=== PATIENT | female | born 1990 | race African-American/Black ===

== ENCOUNTER 2022-04-02 19:12 | Emergency (ER) | payer OTHER, SELFPAY ==
[2022-04-02] VITALS (9 sets, daily range): BP systolic 115–125; BP diastolic 65–84; PULSE 60–83; RESP 16–17; TEMP 36.4; O2SAT 98–100
--- NOTE | ~2022-04-02 | CT_ITS ---
EXAMINATION: CT brain wo con DATE: 04/02/2022 23:25 INDICATION: Frontal headache TECHNIQUE: Computed tomography (CT) of the head was performed without intravenous contrast. The mA wa s adjusted according to patient size. Iterative reconstruction technique was employed. Exam dose: 60 5.33 mGy-cm total exam DLP. COMPARISON: 04/02/2022 CT sinuses FINDINGS: No intracranial mass lesion or hemorrhage or cerebrovascular accident. Normal ventricular s ize. Normal damon-white matter differentiation. No midline shift or mass effect. No subdural or epidur al hematoma. No fracture or bone destruction of the cranial vault. The mastoid air cells are normally developed and aerated. There is prominent opacity in the included upper right maxillary sinus, soft tissue thickening of the ethmoid air cells and the left maxillary sinus. IMPRESSION: No intracranial abnormality Reviewed, dictated and finalized at [facility]. Reviewed, dictated and finalized at [facility]. IMPRESSION: No intracranial abnormality
--- NOTE | ~2022-04-02 | CT_ITS ---
EXAMINATION: CT sinus wo con DATE: 04/02/2022 22:46 INDICATION: Right facial pain TECHNIQUE: Computed tomography (CT) of the paranasal sinuses was performed without contrast. Iterativ e reconstruction technique was employed. Exam dose: 312.93 mGy-cm total exam DLP. COMPARISON: None FINDINGS: There is minimal medial bowing of the nasal septum. Interlamellar cell of left middle nasal turbinate. There is prominent soft tissue swelling of the moises al turbinates bilaterally. There is soft tissue thickening of the left infundibulum. The right maxillary sinus is nearly completely opacified, with medial bowing of the upper medial wall suggesting mucocele. The right infundibulum and maxillary ostium are opacified as is the right ethmo id bulla. There is soft tissue thickening in the ethmoid septae. There is mild mucoperiosteal thickening of the left maxillary and left sphenoid sinuses. The mastoid air cells are normally developed and aerated. IMPRESSION: Nearly complete opacification of the right maxillary sinus with medial bowing of the upp er medial wall of the right maxillary sinus, suggesting mucocele Opacification of the right ostiomeatal unit and soft tissue thickening of the left infundibulum Mild microvascular of left maxillary and sphenoid sinuses and soft tissue thickening of the ethmoid s eptae Reviewed, dictated and finalized at [facility]. Reviewed, dictated and finalized at [facility]. IMPRESSION: Nearly complete opacification of the right maxillary sinus with me dial bowing of the upper medial wall of the right maxillary sinus, suggesting m ucocele Opacification of the right ostiomeatal unit and soft tissue thickening of the l eft infundibulum Mild microvascular of left maxillary and sphenoid sinuses and soft tissue thick ening of the ethmoid septae
[2022-04-02] MEDS: SODIUM CHLORIDE 0.9% IV 1,000 ML 999 ML IV CONT (22:54)
[2022-04-02] MEDS: KETOROLAC 30 MG/ML VIAL (*BKC) IV PUSH (22:57)
[2022-04-02] MEDS: diphenhydrAMINE HCl INJ 50 MG/ML VIAL 25 MG IV PUSH (22:57)
[2022-04-02] MEDS: METOCLOPRAMIDE HCL INJ 10 MG/2 ML VIAL IV PUSH (22:57)
[2022-04-02 23:02] LABS: Basophils Absolute Auto 0.1 K/mm3 (0.0-0.1); Basophils Percent Auto 0.5 % (0.2-1.2); Eosinophils Absolute Auto 0.3 K/mm3 (0-0.3); Eosinophils Percent Auto 3.4 % (0-4.4); Hematocrit 35.8 % (37.0-47.0); Hemoglobin 11.1 g/dL (12.0-15.0); Immature Granulocyte Absolute 0.02 K/mm3 (0.00-0.031); Immature Granulocyte Percent A 0.2 % (0-0.5); Lymphocytes Absolute Auto 3.14 K/mm3 (0.9-3.2); Lymphocytes Percent Auto 31.1 % (18.3-44.2); Mean Corpuscular Hemoglobin 26.7 pg (26-34); Mean Corpuscular Volume 86.3 fl (80-100); Mean Platelet Volume 11.5 fl (7.4-10.4); Monocytes Absolute Auto 0.9 K/mm3 (0.1-0.6); Neutrophils Absolute Auto 5.7 K/mm3 (1.3-6.7); Neutrophils Percent Auto 55.8 % (45.5-73.1); Platelet Count Result 244 k/mm3 (150-375); Red Blood Count 4.15 M/mm3 (4.2-5.4); Red Cell Distribution Width 15.3 % (11.5-14.5); White Blood Count 10.1 K/mm3 (4.5-10.0)
[2022-04-02 23:15] LABS: Alanine Aminotransferase 17 U/L (6-35); Albumin Level 3.8 g/dL (3.5-5.1); Alkaline Phosphatase 68 U/L (38-126); Anion Gap 5 mmol/L (8-16); Aspartate Amino Transferase 21 U/L (14-36); Bilirubin,Total 0.2 mg/dL (0.2-1.3); Blood Urea Nitrogen 9 mg/dL (7-17); Calcium 8.5 mg/dL (8.4-10.2); Carbon Dioxide 28 mmol/L (22-30); Chloride 104 mmol/L (98-107); Estimated CRCL calculation 108 ml/min; Estimated Glomerular Filt Rate > 60; Glucose 90 mg/dL (65-110); Potassium 3.4 mmol/L (3.4-5.0); Sodium 137 mmol/L (137-145)
[2022-04-03] VITALS: O2SAT 99
[2022-04-03 00:15] VITALS: PULSE 87; RESP 18; O2SAT 98
[2022-04-03] MEDS: HYDROcodone/acetaminophen (*CRX) 5-325 MG TABLET 1 TAB PO (00:52)
[2022-04-03] MEDS: AMOXICILLIN/CLAVULANATE K 875-125 MG TAB 1 TABLET PO (00:53)
--- NOTE | 2022-04-03 02:08 | ED.GENADULT ---
HPI - General Adult General Chief complaint: Unspecified Stated complaint: right facial numbness Time Seen by Provider: 04/02/22 21:23 Source: patient Mode of arrival: ambulatory History of Present Illness HPI narrative: 31 year old female presents today with complaints of right sided facial pain that starts at her cheek and runs down her face. Patient states it started yesterday. She was able to take medication yesterday that made her pain free but she woke up this am and the pain was horrible. Patient has tried tylenol/ibuprofen without releif. Denies dental issues, unsure of sinus issues, but endorses a headache. Headache is the worse she has ever had. Related Data Allergies Allergy/AdvReac Type Severity Reaction Status Date / Time No Known Allergies Allergy Verified 04/02/22 19:25 Review of Systems Review of Systems: CONSTITUTIONAL: Denies fever, chills, or sweats. EYES: Denies visual changes, redness, or discharge. ENT: Denies rhinorrhea, congestion, sore throat, or otalgia. CARDIOVASCULAR: Denies chest pain, palpitations, or edema. RESPIRATORY: Denies cough or dyspnea. GASTROINTESTINAL: Denies abdominal pain, nausea, vomiting, or diarrhea. GENITOURINARY: Denies dysuria or hematuria. SKIN: Denies rash or itching. MUSCULOSKELETAL: Denies back pain, joint pain, or myalgia. NEUROLOGIC: Right cheek pain radiating down face. Headache. PSYCHIATRIC: Denies anxiety or depression. Exam Narrative: GENERAL: Well-appearing, well-nourished, and in no acute distress. HEAD: Normocephalic, atraumatic. EYES: PERRLA and EOMI. ENT: Nares clear, no rhinorrhea or epistaxis. Mucous membranes moist. Oropharynx without tonsillar hypertrophy exudate or other lesions. Bilateral TMs pearly damon nonbulging. Tenderness to right maxillary sinus. NECK: Supple. No adenopathy or masses. No carotid bruits or JVD CHEST: Clear to auscultation. No respiratory distress. No wheezes rales or rhonchi HEART: Regular rate and rhythm. No murmur heard. Normal peripheral pulses. ABDOMEN: Soft, nontender, nondistended, normal active bowel sounds. EXTREMITIES: Normal range of motion. No edema. SKIN: Warm, dry, no rash. NEURO: No focal deficits. Alert and oriented x3. PSYCH: Normal mood and affect. Course Course Emergency Course: Patient with some improvement after medications. Patient's headache is completely gone but still rating right cheek pain 8 out of 10. Labs and CT reviewed with patient. Patient given Augmentin here and also will be given a prescription. Patient discharged home with plan follow-up with primary care. Vital Signs Vital signs: Vital Signs Temperature 36.4 C L 04/02/22 19:26 Pulse Rate 83 04/02/22 19:26 Respiratory Rate 16 04/02/22 19:26 Blood Pressure 116/65 04/02/22 19:26 Pulse Oximetry 99 04/02/22 19:26 Temperature 36.4 C L 04/02/22 19:26 Pulse Rate 60 04/02/22 22:58 Respiratory Rate 17 04/02/22 22:58 Blood Pressure 115/77 04/02/22 22:58 Pulse Oximetry 100 04/02/22 22:58 Medical Decision Making MDM Narrative Medical decision making narrative: HPI as noted. WBC is 10.1 hemoglobin 11.11 BUN 9 creatinine with in normal limits. Electrolytes within normal limits. CT of the head shows no acute process. CT of the sinuses shows paranasal sinus disease. Considering patient was describing headache as the worst headache of her life and CT negative and comfortable discharging home. Patient with sinusitis. P.o. antibiotics given with plan follow-up with primary Differential Diagnosis Differential Diagnosis: Acute sinusitis, tooth infection, trigeminal neuralgia, right facial pain, Medical Records Medical records reviewed: Yes I reviewed the external patient's medical records. Vital Signs Vital Signs: Vital Signs Temperature 36.4 C L 04/02/22 19:26 Pulse Rate 83 04/02/22 19:26 Respiratory Rate 16 04/02/22 19:26 Blood Pressure 116/65 04/02/22 19:26 Pulse Oximetry 99 04/02/22 19:26
[2022-04-03 02:58] VITALS: PULSE 82; RESP 16; O2SAT 100
== END 2022-04-03 03:00 | disposition home or self-care (01) ==
PROVIDERS: Emergency Provider Nurse Practitioner Family; PCP Physician Assistant
DX: R51.9 Headache, unspecified (principal); J01.90 Acute sinusitis, unspecified
CPT/HCPCS: 36415; 70450; 70486; 80053; 81025; 85025; 96361; 96374; 96375; 99284; A9270; J1100; J1200; J1885; J2765; J7030

== ENCOUNTER 2022-04-14 11:15 | Outpatient (RCR) | payer OTHER, SELFPAY ==
--- NOTE | 2022-02-25 11:21 | PTOPEVAL ---
Thank you for referring Judi Ambrocio to [facility].? The patient is scheduled to be seen for therapy? 1-2 x/week for 6 weeks. Please review, sign, date and return this plan of care STANISLAV. I agree with and certify that the following plan of care is medically necessary. Referring Physician Date Attending Provider: Laura Parr, PA Diagnosis neck pain Onset chronic Subjective Information She reports the pain is not Query Text:As Reported By Patient/ isolated to her neck, but Family rather shoulders, back and neck region. She needs a breast reduction, but must have therapy first to meet insurance requirements. Reports N/t into marleny UE into hands for 1.6 yrs. She feels the symptoms are related to the pressure of her bra strap on her shoulder. She has increased pain with prolonged standing causing her to lean forward on objects. She performs slight cardio program of walking TM. She performs some stretches, but unable to verbalize any particular stretch. She is performing UE resistance training. Reports difficulty with sleeping. She also has sensitivity to touch and pressure. Indicates various clothing material irritate her skin as does light touch. Diagnostic Tests X-Rays For This Problem Yes: mild DDD C4-5 and C5-6 Previous Treatments Previous Treatments For This Problem no Pain Assessment Bilateral Arm(s) Reported Pain Level 8 Pain Description Numbness,Radiating,Tingling Pain Frequency Chronic Lowest Pain Intensity 0 Greatest Pain Intensity 8 Other Pain Aggravating Factors wearing a bra Neck Reported Pain Level 1 Pain Description Aching Pain Radiation Left Arm,Right Arm Pain Frequency Chronic Lowest Pain Intensity 1 Greatest Pain Intensity 7 Other Pain Aggravating Factors wearing a bra Pain Behaviors Irritable Cervical and Lumbar ROM Cervical ROM Cervical Flexion (0-60) 55:Active in Degrees Cervical Extension (0-70) 62
--- NOTE | 2022-03-07 17:19 | PTOPEVAL ---
Thank you for referring Judi Ambrocio to [facility].? The patient is scheduled to be seen for therapy?1-2 x/week for 4-6 weeks. Please review, sign, date and return this plan of care STANISLAV. I agree with and certify that the following plan of care is medically necessary. Referring Physician Date Attending Provider: Laura Parr, PA Diagnosis low back pain, shoulder pain Onset chronic Additional Evaluation Detail She reports the pain is not isolated to her neck, but rather shoulders, back and neck region. She needs a breast reduction, but must have therapy first to meet insurance requirements. Subjective Information A new order was received to Query Text:As Reported By Patient/ address chronic back and Family shoulder pain. She reports increased pain with prolonged standing task. She has had back pain for years. 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 Pain improves with seated rest. Denies any pain with sleeping or walking on TM. She does not perform isolated stretches for her back. Does feel her back pain increases when she is wearing her bra. Pain Assessment Lower Back Reported Pain Level 9 Pain Description Aching,Sharp Pain Frequency Chronic,Continuous Lowest Pain Intensity 5 Greatest Pain Intensity 10 Pain Aggravating Factors Exercise/Activity,Prolonged Position,Weight Bearing/ Standing Cervical and Lumbar ROM Lumbar ROM Lumbar Flexion Active AnkleHands to: Lateral Flexion lateral knee joint*Active Hands to: Lumbar Comments lumbar hyper ext during trunk ext, flex from hip hinge vs lumbar region trunk ext: motion for mid to upper back, lacks lumbar isolated movement Cervical and Lumbar Muscle Testing Lumbar Strength Upper Abdominal Strength 3+Fair+ Lower Abdominal Strength 3 Fair Upper Back Extension 3+Fair+ Lower Back Extension 3+Fair+ Lower Extremity Muscle Strength Testing General Lower Extremity Strength Gross
--- NOTE | 2022-03-21 15:23 | PTOPEVAL ---
Physical Therapy Progress Note Thank you for referring Judi Ambrocio to [facility].? She has been referred to therapy due to chronic back/neck and shoulder/UE pain. She has been seen for 5 therapy visits from 03/01/22 to 03/21/22. She is progressing slowly with her back/neck and UE symptoms. She remains limited with joint movement, muscle weakness, body awareness and proper movement patterns. She has been provided a home program to address her limitations. Modified oswestry: 22% impaired at eval and 20% impaired at update Neck Disability index: 16% impaired at eval and 14% impaired at update Assessment: Judi is progressing slowly towards her therapy goals. She requires additional skilled therapy services to address her soft tissue restrictions, improve proper joint movement, improve functional movement pattern and improve muscle strength. Without additional therapy services she will remain limited and restricted with her daily task. The patient is scheduled to be seen for therapy?1-2 x/week for 4 weeks. Please review, sign, date and return this plan of care STANISLAV. I agree with and certify that the following plan of care is medically necessary. Referring Physician Date Attending Provider: Laura Parr, PA Diagnosis low back pain, shoulder pain, neck pain Onset chronic Additional Evaluation Detail She reports the pain is not isolated to her neck, but rather shoulders, back and neck region. She needs a breast reduction, but must have therapy first to meet insurance requirements. Subjective Information She is going to the gym 5x/wk Query Text:As Reported By Patient/ for 30 min to 1 hr. She walks Family on the TM and performs her HEP. She does not feel therapy is helping her symptoms. She is wearing her bra more consistently since starting therapy. She cont to have increased pain with prolonged standing task. Reports the pain is mainly from midback to neck region. 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 She cont numbness and tingling into marleny UE to full hand region. Pain Assessment Lower Back Reported Pain Level 1 Pain Description Cramping,Sharp Pain Frequency Chronic Lowest Pain Intensity 1 Greatest Pain Intensity 7 Bilateral Arm(s) Reported Pain Level 7 Pain Description Numbness,Radiating,Tingling Pain Frequency Chronic Lowest Pain Intensity 7 Gre
--- NOTE | 2022-04-04 11:17 | PCPTNOTE ---
Patient called & cancelled scheduled appointment this date due to having another appointment.
--- NOTE | 2022-04-20 11:09 | PCPTNOTE ---
Patient called & cancelled scheduled appointment this date due to scheduling conflicts. She has been rescheduled.
--- NOTE | 2022-04-27 08:28 | PCPTNOTE ---
Patient called & cancelled scheduled appointment this date due to being called into work. She has been rescheduled.
--- NOTE | 2022-05-10 10:01 | PCPTNOTE ---
Attending Provider: Laura Parr, PA Patient:Judi Ambrocio Date of :1990 Patient no call no showed for her re-evaluation this date. She has cancelled the last 2 re-evaluations due to scheduling conflicts. Per our attendance policy, she will be discharged from skilled physical therapy services at this time. Patient has not returned for any further treatments since 04/14/2022. Patient?s initial visit was on 02/25/2022 and she had a total of 8 visits. Thank you for referring this patient to [facility]. Please review, sign, date and return this discharge summary STANISLAV. I have been updated about the patient's current status and I agree with discharge from the above service at this time. Referring Physician Date
== END 2022-05-10 14:37 | disposition home or self-care (01) ==
LOC: ANHPT 11:15
PROVIDERS: Visit Provider Physician Assistant
DX: M54.2 Cervicalgia (principal)
CPT/HCPCS: 97110; 97112; 97140; 97161; 97530

== ENCOUNTER 2022-06-29 08:58 | Outpatient (CLI) | payer OTHER, SELFPAY ==
--- NOTE | 2022-07-13 12:34 | WPDHOMESLEEP ---
Sleep Study - Home Unattended Date of Study: 06/29/22 Ordering Provider: Laura Parr, KEMAL Interpreting Provider: Milagro Solis, DO Home Sleep Study Type: Apnea Link Air Height: 1.65 m Weight: 131.542 kg Body Mass Index: 48.2 Neck Circumference (inches): 16 [place]: 5 Reason for Sleep Study Sleep-onset and sleep-maintenance insomnia Sleep History The patient is a 31-year-old female with seasonal allergies, pre-diabetes and obesity that had a sleep study ordered by her primary care for evaluation of sleep apnea. The patient denies awakening from sleep short of breath. She denies awakening at night with heartburn, belching or cough. He denies snoring loud enough others complain. She occasionally has trouble sleeping when she has a cold. She denies waking up gasping for air throughout the night. She denies having breathing problems at night observed by herself or others. She denies sweating excessively at night. She denies having heart palpitations or irregular heartbeats during the night. She denies falling asleep during the day and while driving. She denies sleep paralysis and cataplexy. She rarely has trouble at school or work due to sleepiness. She constantly experiences vivid dreamlike scenes upon awakening or falling asleep. She denies feeling afraid of point sleep. She denies having nightmares. She constantly remembers her dreams. She constantly has thoughts racing through her mind. She denies feeling sad or depressed. She frequently has anxiety. She denies having muscular tension she denies noticing parts of her body jerk. She denies kicking during night. He denies having crawling and aching feelings in her legs as well as leg pain during the night. She denies grinding her teeth during sleep awakening with morning jaw pain. She denies being bothered by pain during the day and denies being awakened by pain during the night. She constantly wakes up feeling stiff in the morning. She constantly wakes up with sore achy muscles. She occasionally wakes up with pain in the neck, spine or other joints. She goes to bed at 11:00 p.m. on weekdays and at midnight on the weekends. It takes her 30 minutes to an hour to fall asleep. She wakes up 2-3 times throughout the night for unknown reasons. When she awakens, she will lay in bed, get a drink or do something on her phone. He can take her a few minutes or several hours to fall back asleep. She does not have a set wake-up time on weekdays or weekends. She will stay in bed for a few minutes after waking up morning. She currently lives with her 3 children. She denies consuming any caffeinated beverages within 2 hours of bedtime. She occasionally engages in physical exercise before bedtime. She will watch television before falling asleep. She denies taking naps in the afternoon or the evening. She denies consuming caffeinated beverages throughout the day. She denies tobacco, alcohol and recreational drug use. [facility] Past Medical History Medical History (Updated 07/13/22 @ 12:47 by Milagro Solis DO) Morbid obesity with BMI of 45.0-49.9, adult Seasonal allergies Medications Home Medications Medication Instructions Recorded Confirmed Type amoxicillin 875 mg-potassium 1 tablet PO Q12H #14 tabs 04/03/22 Rx clavulanate 125 mg tablet Sleep Procedure This test was performed using 4 channel monitoring including respiratory effort channel, snoring channel, heart rate channel, and oxygen saturation channel. This study was scored using [facility] guidelines. Sleep Architecture The patient had a total recording time of 6 hours 41 minutes and total monitoring time of 6 hours 14 minutes. The patient spent 6 hours 8 minutes, 98.2% of total recording time in the supine position. Respiratory Analysis The patient had an overall AHI of 1.1 and the central apnea index of 0.2. The supine AHI was 1.1. The patient had 2 apneas and 5 hypopneas. No Surjit-Stok
[2022-07-13 12:43] VITALS: BMI 48.2
== END 2022-06-30 10:54 | disposition home or self-care (01) ==
LOC: ANHCSM 08:59
PROVIDERS: PCP Physician Assistant; Visit Provider Physician Assistant
DX: G47.9 Sleep disorder, unspecified (principal); G47.30 Sleep apnea, unspecified
CPT/HCPCS: 95806

== ENCOUNTER 2022-09-30 07:14 | Outpatient (CLI) | payer OTHER, SELFPAY ==
--- NOTE | 2022-10-29 17:23 | WPDSLEEPSTUD ---
Sleep Study Date of Study: 09/30/22 Ordering Provider: Laura Parr, KEMAL Interpreting Physician: Milagro Solis, DO Sleep Study Type: Polysomnogram Height: 1.63 m Weight: 127.006 kg Body Mass Index: 48.0 Neck Circumference (inches): 17 [place]: 5 Reason for Sleep Study The patient had a home sleep test on 06/29/2022 that showed an AHI of 1.1. Sleep History The patient is a 31-year-old female with seasonal allergies, pre-diabetes and obesity that had a sleep study ordered by her primary care for evaluation of sleep apnea.? The patient denies awakening from sleep short of breath.? She denies awakening at night with heartburn, belching or cough.? He denies snoring loud enough others complain.? She occasionally has trouble sleeping when she has a cold.? She denies waking up gasping for air throughout the night.? She denies having breathing problems at night observed by herself or others.? She denies sweating excessively at night.? She denies having heart palpitations or irregular heartbeats during the night.? She denies falling asleep during the day and while driving.? She denies sleep paralysis and cataplexy.? She rarely has trouble at school or work due to sleepiness.? She constantly experiences vivid dreamlike scenes upon awakening or falling asleep.? She denies feeling afraid of point sleep.? She denies having nightmares.? She constantly remembers her dreams.? She constantly has thoughts racing through her mind.? She denies feeling sad or depressed.? She frequently has anxiety.? She denies having muscular tension she denies noticing parts of her body jerk.? She denies kicking during night.? He denies having crawling and aching feelings in her legs as well as leg pain during the night.? She denies grinding her teeth during sleep awakening with morning jaw pain.? She denies being bothered by pain during the day and denies being awakened by pain during the night.? She constantly wakes up feeling stiff in the morning.? She constantly wakes up with sore achy muscles.? She occasionally wakes up with pain in the neck, spine or other joints.? She goes to bed at 11:00 p.m. on weekdays and at midnight on the weekends.? It takes her 30 minutes to an hour to fall asleep.? She wakes up 2-3 times throughout the night for unknown reasons.? When she awakens, she will lay in bed, get a drink or do something on her phone.? He can take her a few minutes or several hours to fall back asleep.? She does not have a set wake-up time on weekdays or weekends.? She will stay in bed for a few minutes after waking up morning.? She currently lives with her 3 children.? She denies consuming any caffeinated beverages within 2 hours of bedtime.? She occasionally engages in physical exercise before bedtime.? She will watch television before falling asleep.? She denies taking naps in the afternoon or the evening. She denies consuming caffeinated beverages throughout the day.? She denies tobacco, alcohol and recreational drug use. [facility] Past Medical History Medical History (Updated 07/13/22 @ 12:47 by Milagro Solis, ) Morbid obesity with BMI of 45.0-49.9, adult Seasonal allergies Medications Home Medications Medication Instructions Recorded Confirmed Type amoxicillin 875 mg-potassium 1 tablet PO Q12H #14 tabs 04/03/22 Rx clavulanate 125 mg tablet Sleep Procedure This test was performed using the [employer]Works multiple channel system including EOG, EEG, submental EMG, EKG, nasal and oral airflow using thermistors and nasal pressure sensors, chest and abdominal belts for body position data, and pulse oximetry. Video monitoring was also performed. The study was scored using CMS guidelines. Sleep Architecture The patient had a total recording time of 528.7 minutes and total sleep time of 359.5 minutes. The sleep efficiency was 68%. Sleep latency was 74.5 minutes and REM latency was 141.5 minutes. The patient had 20 awakenings. The patient spen
[2022-10-29 17:35] VITALS: BMI 48.0
== END 2022-10-01 07:17 | disposition home or self-care (01) ==
PROVIDERS: PCP Physician Assistant; Visit Provider Physician Assistant
DX: G47.9 Sleep disorder, unspecified (principal); G47.30 Sleep apnea, unspecified
CPT/HCPCS: 95810

== ENCOUNTER 2023-03-21 08:28 | Outpatient (CLI) | payer OTHER, SELFPAY ==
--- NOTE | ~2023-03-21 | CT_ITS ---
EXAMINATION: CT brain wo con DATE: 03/21/2023 08:59 INDICATION: Headache TECHNIQUE: Computed tomography (CT) of the head was performed without intravenous contrast. Sagittal and coronal reconstructions were performed. The mA was adjusted according to patient size. Iterative reconstruction technique was employed. The dose-length product was 605.33 mGy-cm. COMPARISON: head CT dated 04/02/2022 FINDINGS: No acute intracranial hemorrhage, acute infarction or abnormal extra axial fluid collection. Ventricl es are normal and symmetric. No mass/mass effect. Mild mucosal thickening the left maxillary sinus. T he orbits and mastoid air cells are normal. IMPRESSION: 1. Normal brain. Reviewed, dictated and finalized at [facility]. IMPRESSION: 1. Normal brain.
== END 2023-03-21 08:29 | disposition home or self-care (01) ==
PROVIDERS: PCP Physician Assistant; Visit Provider Physician Assistant
DX: R51.9 Headache, unspecified (principal)
CPT/HCPCS: 70450

== ENCOUNTER 2024-03-19 10:02 | Emergency (ER) | payer OTHER, SELFPAY ==
--- NOTE | ~2024-03-19 | XR_ITS ---
EXAMINATION: XR chest 2V 03/19/2024 10:51 INDICATION: Midsternal chest pain for 2 weeks PROCEDURE: 2 view chest COMPARISON: 07/19/2006 FINDINGS: The lungs are clear. The cardiomediastinal silhouette is within normal limits. There are no pleural effusions. There is no pneumothorax suspected. IMPRESSION: 1: NO ACUTE CARDIOPULMONARY DISEASE. Reviewed, dictated and finalized at [facility].
--- NOTE | 2024-03-19 10:02 | ECG_ITS ---
SEE SCANNED COPY FOR CONFIRMED REPORT. MTDD
[2024-03-19 10:05] VITALS: BP 135/66; PULSE 65; RESP 16; TEMP 36.4; O2SAT 99
[2024-03-19 10:30] LABS: Basophils Percent Auto 0.4 % (0.2-1.2); Eosinophils Absolute Auto 0.3 K/mm3 (0-0.3); Eosinophils Percent Auto 3.5 % (0-4.4); Hematocrit 36.7 % (37.0-47.0); Hemoglobin 11.5 g/dL (12.0-15.0); Immature Granulocyte Absolute 0.01 K/mm3 (0.00-0.031); Immature Granulocyte Percent A 0.1 % (0-0.5); Lymphocytes Absolute Auto 2.05 K/mm3 (0.9-3.2); Lymphocytes Percent Auto 28.8 % (18.3-44.2); Mean Corpuscular HGB Conc 31.3 g/dl (32-36); Mean Corpuscular Volume 86.2 fl (80-100); Mean Platelet Volume 11.6 fl (7.4-10.4); Monocytes Absolute Auto 0.6 K/mm3 (0.1-0.6); Monocytes Percent Auto 8.3 % (2.6-8.5); Neutrophils Absolute Auto 4.2 K/mm3 (1.3-6.7); Neutrophils Percent Auto 58.9 % (45.5-73.1); Platelet Count Result 267 k/mm3 (150-375); Red Blood Count 4.26 M/mm3 (4.2-5.4); Red Cell Distribution Width 15.6 % (11.5-14.5); White Blood Count 7.1 K/mm3 (4.5-10.0)
[2024-03-19 10:41] LABS: INR 0.9
[2024-03-19 10:42] LABS: Partial Thromboplastin Time 26.1 Seconds (22.3-36.8)
[2024-03-19 10:45] LABS: Alanine Aminotransferase 22 U/L (6-35); Alkaline Phosphatase 72 U/L (38-126); Anion Gap 8 mmol/L (4-12); Aspartate Amino Transferase 20 U/L (14-36); Bilirubin,Total 0.4 mg/dL (0.2-1.3); Blood Urea Nitrogen 9 mg/dL (7-17); Calcium 8.7 mg/dL (8.4-10.2); Carbon Dioxide 23 mmol/L (22-30); Chloride 109 mmol/L (98-107); Estimated CRCL calculation 103 ml/min; Estimated Glomerular Filt Rate > 60; Glucose 97 mg/dL (65-110); Lipase 80 U/L (23-300); Potassium 4.1 mmol/L (3.4-5.0); Sodium 140 mmol/L (137-145)
[2024-03-19 10:57] LABS: Troponin I < 0.012 ng/mL (0.000-0.034)
[2024-03-19 11:07] VITALS: BP 133/52; PULSE 67; PULSE 70; RESP 23; O2SAT 100
[2024-03-19 12:02] VITALS: BP 132/72; PULSE 68; RESP 18; TEMP 36.7; O2SAT 100
--- NOTE | 2024-03-19 12:12 | ED.CHESTPAIN ---
HPI - Chest Pain General Chief Complaint: Chest Pain Stated Complaint: chest pain Time Seen by Provider: 03/19/24 11:41 Source: patient Mode of arrival: ambulatory Limitations: no limitations History of Present Illness HPI narrative: Patient presents with chest pain and shortness of breath of several weeks duration though she states increasing in frequency with episodes lasting longer. She has a history of palpitations years ago for which she saw a health promotion specialist and previously wore an event monitor (possibly multiple times). She has an upcoming appointment with her health promotion specialist Dr [facility] on 04/03/24. She has not taken anything for pain yet. No cough or fever. She states it feels different than her palpitations. Episodes had lasted minutes but now last hours to days, occurring intermittently. She will often experience intermittent numbness in her bilateral lower extremities, not occurring in both legs at the same time but rather occasionally on the left and occasionally on the right. Does not wear tight clothes/belts around waist/hips. No nausea/vomiting/diarphoresis. No hemoptysis, recent surgery/trauma. No Hx DVT/PE. Not on hormones. Patient denies any matthew lower extremity edema though does state occasionally she will notice that when she takes her socks off it leaves a ridge/shady. Related Data Allergies Allergy/AdvReac Type Severity Reaction Status Date / Time ibuprofen Allergy Swelling Verified 03/19/24 11:09 of Lip/Tongue/Throat PMFSH Past Medical History Medical History (Updated 03/20/24 @ 00:01 by Background Daemon) Morbid obesity with BMI of 45.0-49.9, adult Seasonal allergies Exam Narrative: GENERAL: Well-appearing, well-nourished, and in no acute distress. HEAD: Normocephalic, atraumatic. EYES: Non injected, non icteric ENT: Nares clear, no rhinorrhea or epistaxis. NECK: Supple. CHEST: Speaking in full sentences. No respiratory distress. Lungs clear. HEART: Regular rate and rhythm. . ABDOMEN: Soft, nondistended. EXTREMITIES: Normal range of motion. No edema. SKIN: Warm, dry, no rash. NEURO: No focal deficits. Alert and oriented x3. PSYCH: Normal mood and affect. Course Vital Signs Vital signs: Vital Signs Temperature 97.5 F L 03/19/24 10:05 Pulse Rate 65 03/19/24 10:05 Respiratory Rate 16 03/19/24 10:05 Blood Pressure 135/66 03/19/24 10:05 Pulse Oximetry 99 03/19/24 10:05 Oxygen Delivery Room Air 03/19/24 10:05 Temperature 98.0 F 03/19/24 12:58 Pulse Rate 66 03/19/24 14:31 Respiratory Rate 20 03/19/24 14:31 Blood Pressure 129/85 03/19/24 14:31 Pulse Oximetry 99 03/19/24 14:31 Oxygen Delivery Room Air 03/19/24 11:07 MDM - Chest Pain MDM Narrative Medical decision making narrative: Patient present with chest pain and shortness of breath of several weeks duration but increasing episodes in terms of frequency. In the ED she is afebrile with VS within normal limits. Has a history of palpitations without clear diagnosis. Has previously seen health promotion specialist Dr Rodríguez and has an upcoming appointment with them 04/03. History and physical exam reassuring. PERC score negative so will not pursue further work up for PE. Work up unremarkable, with negative troponin x2. Low HEART score. Patient to be discharged with outpatient follow up and strict ED return precautions. Differential Diagnosis Differential diagnosis: Likely fracture of rib, pneumothorax, stable angina, unstable angina pectoris, atypical chest pain, st elevation myocardial infarction, costochondritis, chest pain, biliary colic and other (acute viral syndrome, rhabdo, electrolyte abnormality. Considered PE. Meralgia paresthestica) Lab Data Attestation: I reviewed the patient's lab results. Lab results narrative: Normocytic anemia, stable from previous 03/19/24 10:22 03/19/24 10:22 Labs: Lab Results 03/19/24 03/19/24 03/19/24
[2024-03-19 12:39] LABS: Creatine Kinase 228 U/L (30-135); Magnesium 1.9 mg/dL (1.6-2.3)
[2024-03-19 12:58] VITALS: BP 133/52; PULSE 64; RESP 18; TEMP 36.7; O2SAT 100
--- NOTE | 2024-03-19 13:00 | ECG_ITS ---
SEE SCANNED COPY FOR CONFIRMED REPORT. MTDD
[2024-03-19 13:09] LABS: Influenza A QL RT-PCR Negative (Negative); Influenza B QL RT-PCR Negative (Negative); RSV RNA, RT-PCR Negative (Negative); SARS-CoV-2 RNA PCR Negative (Negative)
--- NOTE | 2024-03-19 13:23 | PC.NURSE ---
Pt denies chest pain at this time. No ectopy noted on cardiac cath lab radiology technologist.
[2024-03-19 14:02] LABS: Troponin I < 0.012 ng/mL (0.000-0.034)
[2024-03-19] MEDS: ACETAMINOPHEN 500 MG TABLET 1000 MG PO (14:28)
[2024-03-19 14:31] VITALS: BP 129/85; PULSE 66; RESP 20; O2SAT 99
== END 2024-03-19 14:32 | disposition home or self-care (01) ==
PROVIDERS: Emergency Provider Student in an Organized Health Care Education/Training Program; Referring Provider Family Medicine
DX: R07.9 Chest pain, unspecified (principal); D64.9 Anemia, unspecified; Z20.822 Contact with and (suspected) exposure to COVID-19; E66.01 Morbid (severe) obesity due to excess calories; Z68.42 Body mass index [BMI] 45.0-49.9, adult; R94.31 Abnormal electrocardiogram [ECG] [EKG]
CPT/HCPCS: 36415; 71046; 80053; 82550; 83690; 83735; 84484; 85025; 85610; 85730; 87637; 93005; 99284; A9270

== ENCOUNTER 2024-07-23 18:07 | Emergency (ER) | payer OTHER, SELFPAY ==
[2024-07-23 18:17] VITALS: BP 128/84; PULSE 84; RESP 16; TEMP 36.5; O2SAT 100
[2024-07-23 18:45] VITALS: BP 130/82; PULSE 92; RESP 20; TEMP 36.7; O2SAT 100
--- NOTE | 2024-07-23 19:07 | ED.GENADULT ---
HPI - General Adult General Chief complaint: Back Pain/Injury Stated complaint: lower back pain Time Seen by Provider: 07/23/24 18:48 History of Present Illness HPI narrative: This is a 33-year-old female presenting ED with 2 months of back pain. Pain is located in her left lower back and radiates to the right side. It is an achy pain that is positional. Worse with movement. It improves when she holds pressure on it. It is not associated with fevers IV drug abuse trauma or neurologic deficits. She has been taking Tylenol with minimal relief. She tried cyclobenzaprine at a urgent care and said she fell asleep for 3 days. patient said that the pain started 2 months ago when she had a menstrual cycle but has not let up. Patient is requesting a work note. Related Data Allergies Allergy/AdvReac Type Severity Reaction Status Date / Time ibuprofen Allergy Swelling Verified 07/23/24 18:07 of Lip/Tongue/Throat PMFSH Past Medical History Medical History Morbid obesity with BMI of 45.0-49.9, adult Seasonal allergies Exam Narrative: APPEARANCE: No apparent distress. Head: atraumatic. EYES: EOMI, NOSE: Atraumatic NECK/Back: Trachea midline, no midline spinal tenderness, no tenderness over the left lower quadrant. Straight leg negative bilaterally. RESPIRATORY: No increased rate of breathing CARDIOVASCULAR: RRR, ABDOMINAL: Non-distended MUSCULOSKELETAl: No obvious deformities NEURO: Alert. Cranial nerves 2-12 grossly intact. Sensation light touch, motor function cerebellar function intact for 4 extremities. Gait exam was normal. SKIN:: Warm, dry. Normal color PSYCHIATRIC: Normal affect Course Vital Signs Vital signs: Vital Signs Temperature 97.7 F 07/23/24 18:17 Pulse Rate 84 07/23/24 18:17 Respiratory Rate 16 07/23/24 18:17 Blood Pressure 128/84 07/23/24 18:17 Pulse Oximetry 100 07/23/24 18:17 Temperature 98.1 F 07/23/24 18:45 Pulse Rate 92 07/23/24 18:45 Respiratory Rate 20 07/23/24 18:45 Blood Pressure 130/82 07/23/24 18:45 Pulse Oximetry 100 07/23/24 18:45 Medical Decision Making [facility] Narrative Medical decision making narrative: -Course: 33-year-old female presenting with 2 months of positional back pain. no red flags on history or physical. Discussed CT imaging and intramuscular injections for pain in the patient declined. She would like to try pills. She would like a work note. 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 No trauma. -Interventions: Tylenol Robaxin lidocaine patch -Shared decision making / Disposition: discharged -RX Tylenol Robaxin lidocaine patch Vital Signs Vital Signs: Vital Signs Temperature 97.7 F 07/23/24 18:17 Pulse Rate 84 07/23/24 18:17 Respiratory Rate 16 07/23/24 18:17 Blood Pressure 128/84 07/23/24 18:17 Pulse Oximetry 100 07/23/24 18:17 Temperature 98.1 F 07/23/24 18:45 Pulse Rate 92 07/23/24 18:45 Respiratory Rate 20 07/23/24 18:45 Blood Pressure 130/82 07/23/24 18:45 Pulse Oximetry 100 07/23/24 18:45 Discharge Plan Discharge Clinical Impression: Strain of lumbar region Patient Disposition: Home, Self-Care Condition: Stable Instructions: Antibiotic Form, Back Pain (ED) Additional Instructions: please take prescribed medications as directed for back pain. Please follow-up with your primary care physician for further management. Return if you develop severe back pain, inability to urinate, lower extremity weakness or bowel incontinence. Prescriptions: New acetaminophen 500 mg tabl
[2024-07-23] MEDS: LIDOCAINE 5% PATCH 1 PATCH TRANSDERM (19:33)
[2024-07-23] MEDS: ACETAMINOPHEN 500 MG TABLET 1000 MG PO (19:33)
[2024-07-23] MEDS: methocarbamoL 750 MG TABLET PO (19:34)
[2024-07-23 19:36] VITALS: BP 125/84; PULSE 78; RESP 16; TEMP 36.6; O2SAT 100
== END 2024-07-23 19:37 | disposition home or self-care (01) ==
LOC: ANHED 19:25
PROVIDERS: Emergency Provider Emergency Medicine
DX: S39.012A Strain of muscle, fascia and tendon of lower back, initial encounter (principal); E66.01 Morbid (severe) obesity due to excess calories; Z68.43 Body mass index [BMI] 50.0-59.9, adult; X58.XXXA Exposure to other specified factors, initial encounter
CPT/HCPCS: 99283; A9270

== ENCOUNTER 2024-09-14 14:38 | Emergency (ER) | payer OTHER, SELFPAY ==
--- NOTE | ~2024-09-14 | US_ITS ---
US pelvic complete DATE: 09/14/2024 17:09 INDICATION: Ovarian mass. Evaluate for torsion. TECHNIQUE: COMPARISON: None FINDINGS: There is measures 14.6 cm sagittal, 6.5 cm AP and 6.7 cm transverse dimension. The central endometrial echo complex measures 3.5 mm AP dimension. The right ovary measures 3.4 x 3.0 x 3.5 cm. There is vascular flow to the right ovary. The left ovary measures 10 x 9.3 x 8.9 cm. There is a large cystic lesion of the left ovary. There is arterial flow to the left ovary. Images, IMPRESSION: Large left ovarian cyst; there is vascular flow to the ovaries. Uterine enlargement Reviewed, dictated and finalized at [facility]. Reviewed, dictated and finalized at [facility].
--- NOTE | ~2024-09-14 | CT_ITS ---
EXAMINATION: CT abdomen pelvis w con DATE: 09/14/2024 15:59 INDICATION: Abdominal pain TECHNIQUE: Computed tomography (CT) of the abdomen and pelvis was performed with 100 CC Omnipaque 350 intravenous contrast. Automated exposure control and iterative reconstruction technique were employe d. Exam dose: 1438.76 mGy-cm total exam DLP. COMPARISON: None. FINDINGS: The lung bases are clear. Normal heart size. Trace pericardial fluid. The liver, gallbladder, bile ducts, spleen, pancreas, pancreatic duct, and adrenal glands and kidneys are unremarkable. Normal caliber of the abdominal aorta. There is a large septated cystic lesion of the left pelvic area, measuring up to 10.4 cm AP, 7.6 cm t ransverse and 8.8 cm vertical dimension. This displaces the uterus to the right. The uterus is enlarged, measuring up to 14 cm vertical and 6.2 cm AP dimension. The urinary bladder is unremarkable. Otherwise no intraperitoneal or retroperitoneal or pelvic mass lesion or adenopathy or ascites is not ed. Normal appendix. No bowel obstruction or intraperitoneal free air. Small fat-containing umbilical hernia. Included skeletal structures are unremarkable. IMPRESSION: 10.4 x 7.6 x 8.8 cm septated left adnexal cystic mass, likely of ovarian origin; conside r benign or malignant ovarian lesion, including cystadenoma or cystadenocarcinoma Reviewed, dictated and finalized at [facility]. Reviewed, dictated and finalized at [facility]. IMPRESSION: 10.4 x 7.6 x 8.8 cm septated left adnexal cystic mass, likely of o varian origin; consider benign or malignant ovarian lesion, including cystadeno ma or cystadenocarcinoma
[2024-09-14 14:43] VITALS: BP 112/69; PULSE 74; RESP 18; TEMP 37.1; O2SAT 100
[2024-09-14] MEDS: SODIUM CHLORIDE 0.9% IV 1,000 ML 999 ML IV CONT (15:04)
[2024-09-14] MEDS: ONDANSETRON INJ 4 MG/2 ML VIAL IV PUSH (15:04)
[2024-09-14 15:06] LABS: BEDSIDEPREGUCG Negative (Negative)
[2024-09-14 15:12] LABS: Basophils Percent Auto 0.5 % (0.2-1.2); Eosinophils Absolute Auto 0.2 K/mm3 (0-0.3); Eosinophils Percent Auto 1.9 % (0-4.4); Hematocrit 36.6 % (37.0-47.0); Hemoglobin 11.7 g/dL (12.0-15.0); Immature Granulocyte Absolute 0.02 K/mm3 (0.00-0.031); Immature Granulocyte Percent A 0.2 % (0-0.5); Lymphocytes Absolute Auto 2.23 K/mm3 (0.9-3.2); Lymphocytes Percent Auto 26.9 % (18.3-44.2); Mean Corpuscular Hemoglobin 27.5 pg (26-34); Mean Corpuscular Volume 86.1 fl (80-100); Monocytes Absolute Auto 0.9 K/mm3 (0.1-0.6); Monocytes Percent Auto 10.6 % (2.6-8.5); Neutrophils Percent Auto 59.9 % (45.5-73.1); Platelet Count Result 324 k/mm3 (150-375); Red Blood Count 4.25 M/mm3 (4.2-5.4); Red Cell Distribution Width 14.9 % (11.5-14.5); White Blood Count 8.3 K/mm3 (4.5-10.0)
[2024-09-14 15:21] LABS: Lipase 51 U/L (23-300)
[2024-09-14 15:22] LABS: Alanine Aminotransferase 20 U/L (6-35); Albumin Level 4.3 g/dL (3.5-5.1); Alkaline Phosphatase 56 U/L (38-126); Anion Gap 7 mmol/L (4-12); Aspartate Amino Transferase 19 U/L (14-36); Bilirubin,Total 0.6 mg/dL (0.2-1.3); Blood Urea Nitrogen 11 mg/dL (7-17); Calcium 8.9 mg/dL (8.4-10.2); Carbon Dioxide 29 mmol/L (22-30); Chloride 102 mmol/L (98-107); Estimated CRCL calculation 105 ml/min; Estimated Glomerular Filt Rate > 60; Glucose 88 mg/dL (65-110); Potassium 3.8 mmol/L (3.4-5.0); Sodium 138 mmol/L (137-145)
[2024-09-14 15:27] LABS: Add Urine Microscopic? YES; Appearance Urine Turbid (Clear); Bacteria Urine 4+ /hpf; Bilirubin Urine Negative (Negative); Blood Urine Trace (Negative); Color Urine Dark Yellow (Yellow); Glucose Urine UA Negative (Negative); Ketones Urine Trace mg/dL (Negative); Leukocyte Esterase Ur Trace LEU/UL (Negative); Need Manual Microscopic Reviewed; Nitrate Urine Negative (Negative); Non Pathogenic Casts 0-2; Protein Urine 1+ mg/dL (Negative); Specific Grav Ur 1.034 (1.001-1.035); Squamous Epithelial Cell Urine Few /hpf (Few); pH Urine 5.5 (5.0-9.0)
--- NOTE | 2024-09-14 15:37 | ED_ITS ---
HPI - General Adult General Chief complaint: Abdominal Pain Stated complaint: left flank pain Time Seen by Provider: 09/14/24 14:40 History of Present Illness HPI narrative: The patient is a 34-year-old female who presents emergency department with chief complaint of left flank pain and left lower quadrant pain. The patient reports that pain has been getting worse reports that she has been having intermittent discomfort since May the patient denies fever denies vomiting denies diarrhea reports that she has had no bowel or bladder disturbances Related Data Allergies Allergy/AdvReac Type Severity Reaction Status Date / Time ibuprofen Allergy Swelling Verified 09/14/24 16:05 of Lip/Tongue/Throat Review of Systems Review of Systems: A 10 system review of systems was completed on the patient and is negative except for what is stated in the HPI. Nursing and ancillary documentation was reviewed. [facility] Past Medical History Medical History Morbid obesity with BMI of 45.0-49.9, adult Seasonal allergies Exam Narrative: GENERAL: Well-appearing, well-nourished, and in no acute distress. HEAD: Normocephalic, atraumatic. EYES: PERRLA and EOMI. ENT: Nares clear, no rhinorrhea or epistaxis. Mucous membranes moist. NECK: Supple. CHEST: Clear to auscultation. No respiratory distress. HEART: Regular rate and rhythm. No murmur heard. Normal peripheral pulses. ABDOMEN: Soft, tenderness to palpation of the right lower quadrant left lower quadrant, nondistended, normal active bowel sounds. No CVA tenderness EXTREMITIES: Normal range of motion. No edema. SKIN: Warm, dry, no rash. NEURO: No focal deficits. Alert and oriented x3. PSYCH: Normal mood and affect. Course Vital Signs Vital signs: Vital Signs Temperature 37.1 C 09/14/24 14:43 Pulse Rate 74 09/14/24 14:43 Respiratory Rate 18 09/14/24 14:43 Blood Pressure 112/69 09/14/24 14:43 Pulse Oximetry 100 09/14/24 14:43 Oxygen Delivery Room Air 09/14/24 14:43 Temperature 37.1 C 09/14/24 14:43 Pulse Rate 73 09/14/24 18:03 Respiratory Rate 18 09/14/24 18:03 Blood Pressure 108/74 09/14/24 18:03 Pulse Oximetry 100 09/14/24 18:03 Oxygen Delivery Room Air 09/14/24 14:43 Medical Decision Making [facility] Narrative Medical decision making narrative: Differential diagnosis includes intra-abdominal infection, UTI, ovarian cyst, ovarian torsion Laboratory studies were obtained on the patient showed normal CBC CMP was within normal limits lipase was normal urinalysis showed evidence of UTI test was negative CT scan of the abdomen pelvis showed 10.4 x 7.6 x 8.8 cm septated left adnexal cystic mass, likely of ovarian origin; consider benign or malignant ovarian lesion, including cystadenoma or cystadenocarcinoma A pelvic ultrasound was obtained Vital Signs Vital Signs: Vital Signs Temperature 37.1 C 09/14/24 14:43 Pulse Rate 74 09/14/24 14:43 Respiratory Rate 18 09/14/24 14:43 Blood Pressure 112/69 09/14/24 14:43 Pulse Oximetry 100 09/14/24 14:43 Oxygen Delivery Room Air 09/14/24 14:43 Temperature 37.1 C 09/14/24 14:43 Pulse Rate 73 09/14/24 18:03 Respiratory Rate 18 09/14/24 18:03 Blood Pressure 108/74 09/14/24 18:03 Pulse Oximetry 100 09/14/24 18:03 Oxygen Delivery Room Air 09/14/24 14:43 Lab Data 09/14/24 15:04 09/14/24 15:04 Labs: Lab Results 09/14/24 09/14/24 Range/Units 15:04 15:05 WBC 8.3 (4.5-10.0) K/mm3 RBC 4.25 (4.2-5.4) M/mm3 Hgb 11.7 L (12.0-15.0) g/dL Hct 36.6 L (37.0-47.0) % MCV 86.1 (80-100) fl MCH 27.5 (26-34) pg MCHC 32.0 (32-36) g/dl RDW 14.9 H (11.5-14.5) % Plt Count 324 (150-375) k/mm3 MPV 11.0 H (7.4-10.4) fl Immature Gran % (Auto) 0.2 (0-0.5) % Neut % (Auto) 59.9 (45.5-73.1) % Lymph % (Auto) 26.9 (18.3-44.2) % Patrick % (Auto) 10.6 H (2.6-8.5) % Eos % (Auto) 1.9 (0-4.4) % Baso % (Auto) 0.5 (0.2-1.2) % Lymph # (Auto) 2.23 (0.9-3.2) K/mm3 Patrick # (Auto) 0.9 H (0.1-0.6) K/mm3 Eos # (Auto) 0.2 (0-0.3) K/mm3 Baso # (Auto) 0.0 (0.0-0.1) K/mm3 Abs Immat Gran (auto) 0.02 (0.00-0.031) K/mm3 Absolute Neuts (auto) 5.0 (1.3-6.7) K/mm3 Absolute Nucleated RBC 0.000 (0.0-0.012) K/mm3 Nucleated RBC % 0.0 (0.0-0.2) % Sodium 138 (137-145) mmol/L Potassium 3.8 (3.4-5.0) mmol/L Chloride 102 (98-107) mmol/L Carbon Dioxide 29 (22-30) mmol/L Anion Gap 7 (4-12) mmol/L BUN 11 (7-17) mg/dL Creatinine 0.90 (0.7-1.0) mg/dL Estim Creat Clear Calc 105 ml/min Estimated GFR > 60 (59 - ) Glucose 88 (65-110) mg/dL Calcium 8.9 (8.4-10.2) mg/dL Total Bilirubin 0.6 (0.2-1.3) mg/dL AST 19 (14-36) U/L ALT 20 (6-35) U/L Alkaline Phosphatase 56 (38-126) U/L Total Protein 9.0 H (6.3-8.2) g/dL Albumin 4.3 (3.5-5.1) g/dL Lipase 51 (23-300) U/L Urine Color Dark yellow (Yellow) Urine Appearance Turbid H (Clear) Urine pH 5.5 (5.0-9.0) Ur Specific [place] 1.034 (1.001-1.035) Urine Protein 1+ H (Negative) mg/dL Urine Glucose (UA) Negative (Negative) mg/dL Urine Ketones Trace H (Negative) mg/dL Ur Blood (Man) Trace (Negative) Urine Nitrate Negative (Negative) Urine Bilirubin Negative (Negative) Urine Urobilinogen 1.0 (<2.0) mg/dL Add Ur Microanalysis Reviewed Leukocyte Esterase Rfl Trace H (Negative) CELESTE/UL Urine RBC 6-10 H (0-2) /hpf Urine WBC 11-20 H (0-3) /hpf Ur Squamous Epith Cells Few (Few) /hpf Urine Bacteria 4+ H /hpf Urine Casts 0-2 POC Urine HCG, Qual Negative (Negative) Discharge Plan Discharge Clinical Impression: Cyst of left ovary, UTI (urinary tract infection) Patient Disposition: Home, Self-Care Condition: Stable Instructions: Antibiotic Form, Ovarian Cyst (ED), Abdominal Pain (ED) Prescriptions: New cephalexin 500 mg capsule 500 mg PO Q12H 7 Days Qty: 14 0RF hydrocodone-acetaminophen 5-325 mg tablet 1 tablet PO Q6H PRN (Reason: pain) 3 Days Qty: 12 0RF No Action acetaminophen 500 mg capsule 1,000 mg PO Q6H PRN (Reason: pain) Qty: 20 0RF acetaminophen 500 mg tablet 1,000 mg PO TID PRN (Reason: paresh) 7 Days Qty: 42 0RF methocarbamol 750 mg tablet 1,500 mg PO TID Qty: 35 0RF lidocaine 5 % adhesive patch,medicated 1 patch topical DAILY Qty: 15 0RF Rx Instructions: leave on most painful area for up to 12 hrs Follow-up/Referrals: Modesto Chambers MD [Physician] - Malcolm Reyes MD [Physician] - PHYSICIAN,ASSISTANT PRODUCT MANAGER [Primary Care Provider] - Time of Disposition: 19:17
[2024-09-14 18:03] VITALS: BP 108/74; PULSE 73; RESP 18; O2SAT 100
[2024-09-14 19:27] VITALS: BP 96/67; PULSE 64; RESP 18; TEMP 36.8; O2SAT 99
--- NOTE | 2024-09-14 19:32 | PC.NURSE ---
patient is ready or discharge. alert and oriented x's 4. ambulatory before discharge.
== END 2024-09-14 19:34 | disposition home or self-care (01) ==
PROVIDERS: Emergency Provider Emergency Medicine
DX: N39.0 Urinary tract infection, site not specified (principal); N83.202 Unspecified ovarian cyst, left side; E66.01 Morbid (severe) obesity due to excess calories; Z68.42 Body mass index [BMI] 45.0-49.9, adult
CPT/HCPCS: 36415; 74177; 76856; 80053; 81001; 81025; 83690; 85025; 87086; 96361; 96374; 99284; J2405; J7030; Q9967

== ENCOUNTER 2024-09-18 08:14 | Emergency (ER) | payer OTHER, SELFPAY ==
[2024-09-18] VITALS (16 sets, daily range): BP systolic 114–132; BP diastolic 77–88; PULSE 65–84; RESP 13–18; TEMP 36.8; O2SAT 90–98
--- NOTE | ~2024-09-18 | US_ITS ---
EXAMINATION: US pelvic complete w TV DATE: 09/18/2024 10:17 INDICATION: Ovarian cyst. TECHNIQUE: Multiple transabdominal and transvaginal sonographic images of the pelvis were obtained. COMPARISON: Ultrasound 09/14/2024, CT abdomen and pelvis 09/14/2024 FINDINGS: TRANSABDOMINAL ULTRASOUND: The uterus measures 11.9 x 6.5 cm. There is no free fluid in the pelvis. TRANSVAGINAL ULTRASOUND: The endometrial complex measures 12 mm in thickness. There is a 2.6 cm subserosal fibroid. The right ovary measures 3.2 x 2.6 x 2.7 cm. The left ovary measures 9.5 x 10.3 x 9.2 cm. There is a 9.9 x 7.8 x 7.6 cm cyst in left ovary. There is normal vascular flow in the ovaries. IMPRESSION: 1. Stable 9.9 cm cyst in left ovary, probably benign. Consider pelvis MRI without and with contrast o r 6-12 month follow-up ultrasound. 2. Uterine fibroid. Reviewed, dictated and finalized at location B. IMPRESSION: 1. Stable 9.9 cm cyst in left ovary, probably benign. Consider pelvis MRI witho ut and with contrast or 6-12 month follow-up ultrasound. 2. Uterine fibroid.
[2024-09-18 08:49] LABS: BEDSIDEPREGUCG Negative (Negative)
--- NOTE | 2024-09-18 09:16 | ED_ITS ---
HPI - Abdominal Pain General Chief Complaint: Abdominal Pain Stated Complaint: abdominal pain w/ n/v Time Seen by Provider: 09/18/24 09:04 History of Present Illness HPI narrative: Patient is a 34 year old female presents to ER with left lower abdominal pain. She reports the pain started approximately 5 months, found out Monday it was an ovarian cyst after she came here for evaluation. Patient reports she has an appointment with Dr. Santiago today, but her pain was so bad she had to come back in to the ER. She reports she has a history of 3 vaginal deliveries and her last was approximately 9 years ago. Patient denies any other pertinent medical history. She denies chest pain, shortness of breath, back pain, but does endorse abdominal pain with urination and left-sided upper and lower abdominal pain with palpation. Related Data Allergies Allergy/AdvReac Type Severity Reaction Status Date / Time ibuprofen Allergy Swelling Verified 09/14/24 16:05 of Lip/Tongue/Throat Review of Systems Review of Systems: All systems reviewed & are unremarkable except as noted in HPI and below PMFSH Past Medical History Medical History Morbid obesity with BMI of 45.0-49.9, adult Seasonal allergies Exam Narrative: GENERAL: Well appearing, well-nourished, non-toxic, in mild distress as shown by tearful presentation. HEAD: Normocephalic, atraumatic. NECK: Supple. No adenopathy, no masses. RESPIRATORY: Airway patent, respirations nonlabored. Clear to auscultation bilaterally, no rales, rhonchi, wheezing. CARDIOVASCULAR: Regular rate and rhythm without murmurs, rubs, or gallops. Peripheral pulses 2+ and equal bilaterally. ABDOMINAL: Soft, tender LUQ and LLQ especially with palpation, nondistended, no hepatosplenomegaly. Normoactive BS. MUSCULOSKELETAL: Moves all extremities. Strength/ROM intact without gross deformities. SKIN: Warm, dry, normal color. No rashes. NEURO: A&O X3. Speech clear. Cranial nerves II-XII grossly intact. No ataxic movements. PSYCHIATRIC: Tearful during examination. Course Consultations Consultation #1: Spoke with Dr. Santiago who encouraged pt to try to get to her OBGYN appointment today so they can evaluate her. Date: 09/18/24 Time: 09:50 Vital Signs Vital signs: Vital Signs Pulse Rate 84 09/18/24 08:17 Respiratory Rate 18 09/18/24 08:17 Blood Pressure 131/81 09/18/24 08:17 Pulse Oximetry 98 09/18/24 08:17 Temperature 36.8 C 09/18/24 08:30 Pulse Rate 84 09/18/24 08:30 Respiratory Rate 16 09/18/24 08:30 Blood Pressure 131/81 09/18/24 08:30 Pulse Oximetry 98 09/18/24 08:30 MDM - Abdominal Pain MDM Narrative Medical decision making narrative: Patient is a 34 year old female presents to ER with left lower abdominal pain. She reports the pain started approximately 5 months, found out Monday it was an ovarian cyst after she came here for evaluation. Patient reports she has an appointment with Dr. Santiago today, but her pain was so bad she had to come back in to the ER. She reports she has a history of 3 vaginal deliveries and her last was approximately 9 years ago. Patient denies any other pertinent medical history. She denies chest pain, shortness of breath, back pain, but does endorse abdominal pain with urination and left-sided upper and lower abdominal pain with palpation. Spoke with patient's OBGYN who encourages patient to get to her previously scheduled appointment with them this afternoon. Patient verbalizes agreement for plan for pain control and then discharge to home so she can get to the appointment on time. Will treat patient's pain with Morphine and Dilaudid, as patient is allergic to ibuprofen. Patient's vaginal ultrasound indicated no acute changes since her previous ultrasound 3 days ago. Differential Diagnosis Differential diagnosis: Likely abdominal pain, acute appendicitis, gastroenteritis and other (ovarian cyst, ovarian mass) Lab Data Attestation: I reviewed the patient's lab results. 09/18/24 08:43 09/18/24 08:43 Labs: Lab Results 09/18/24 09/18/24 Range/Units 08:43 08:46 WBC 8.7 (4.5-10.0) K/mm3 RBC 4.37 (4.2-5.4) M/mm3 Hgb 11.9 L (12.0-15.0) g/dL Hct 37.3 (37.0-47.0) % MCV 85.4 (80-100) fl MCH 27.2 (26-34) pg MCHC 31.9 L (32-36) g/dl RDW 14.7 H (11.5-14.5) % Plt Count 351 (150-375) k/mm3 MPV 11.1 H (7.4-10.4) fl Immature Gran % (Auto) 0.2 (0-0.5) % Neut % (Auto) 70.6 (45.5-73.1) % Lymph % (Auto) 21.0 (18.3-44.2) % [place] % (Auto) 6.9 (2.6-8.5) % Eos % (Auto) 1.0 (0-4.4) % Baso % (Auto) 0.3 (0.2-1.2) % Lymph # (Auto) 1.82 (0.9-3.2) K/mm3 [place] # (Auto) 0.6 (0.1-0.6) K/mm3 Eos # (Auto) 0.1 (0-0.3) K/mm3 Baso # (Auto) 0.0 (0.0-0.1) K/mm3 Abs Immat Gran (auto) 0.02 (0.00-0.031) K/mm3 Absolute Neuts (auto) 6.1 (1.3-6.7) K/mm3 Absolute Nucleated RBC 0.000 (0.0-0.012) K/mm3 Nucleated RBC % 0.0 (0.0-0.2) % Sodium 138 (137-145) mmol/L Potassium 3.6 (3.4-5.0) mmol/L Chloride 100 (98-107) mmol/L Carbon Dioxide 28 (22-30) mmol/L Anion Gap 10 (4-12) mmol/L BUN 8 (7-17) mg/dL Creatinine 0.90 (0.7-1.0) mg/dL Estim Creat Clear Calc 104 ml/min Estimated GFR > 60 (59 - ) Glucose 93 (65-110) mg/dL Calcium 9.2 (8.4-10.2) mg/dL Total Bilirubin 0.5 (0.2-1.3) mg/dL AST 19 (14-36) U/L ALT 15 (6-35) U/L Alkaline Phosphatase 65 (38-126) U/L Total Protein 9.0 H (6.3-8.2) g/dL Albumin 4.3 (3.5-5.1) g/dL Lipase 51 (23-300) U/L Urine Color Yellow (Yellow) Urine Appearance Clear (Clear) Urine pH 6.0 (5.0-9.0) Ur Specific [place] 1.013 (1.001-1.035) Urine Protein Negative (Negative) mg/dL Urine Glucose (UA) Negative (Negative) mg/dL Urine Ketones Trace H (Negative) mg/dL Ur Blood (Man) Negative (Negative) Urine Nitrate Negative (Negative) Urine Bilirubin Negative (Negative) Urine Urobilinogen 0.2 (<2.0) mg/dL Leukocyte Esterase Rfl Negative (Negative) CELESTE/UL POC Urine HCG, Qual Negative (Negative) Imaging Data Attestation: I personally reviewed and interpreted this imaging study as follows: Radiologist's impression: ITS Impressions Pelvic/Transvag US 09/18/24 10:17 IMPRESSION: 1. Stable 9.9 cm cyst in left ovary, probably benign. Consider pelvis MRI without and with contrast or 6-12 month follow-up ultrasound. 2. Uterine fibroid. Discharge Plan Discharge Clinical Impression: Ovarian cyst Patient Disposition: Home, Self-Care Condition: Guarded Prognosis Instructions: Antibiotic Form, Ovarian Cyst (ED) Additional Instructions: Please proceed to your OB GYNs office for your scheduled appointment this afternoon. Return to the ER with any worsening signs or symptoms. Prescriptions: No Action cephalexin 500 mg capsule 500 mg PO Q12H 7 Days Qty: 14 0RF hydrocodone-acetaminophen 5-325 mg tablet 1 tablet PO Q6H PRN (Reason: pain) 3 Days Qty: 12 0RF acetaminophen 500 mg capsule 1,000 mg PO Q6H PRN (Reason: pain) Qty: 20 0RF acetaminophen 500 mg tablet 1,000 mg PO TID PRN (Reason: paresh) 7 Days Qty: 42 0RF methocarbamol 750 mg tablet 1,500 mg PO TID Qty: 35 0RF lidocaine 5 % adhesive patch,medicated 1 patch topical DAILY Qty: 15 0RF Rx Instructions: leave on most painful area for up to 12 hrs Follow-up/Referrals: NON-NURSING STAFF,ADMISSIONS [Nursing Provider Deficiency] - Time of Disposition: 12:32
[2024-09-18] MEDS: SODIUM CHLORIDE 0.9% IV 1,000 ML 999 ML IV CONT (09:27)
[2024-09-18 09:28] LABS: Basophils Percent Auto 0.3 % (0.2-1.2); Eosinophils Absolute Auto 0.1 K/mm3 (0-0.3); Hematocrit 37.3 % (37.0-47.0); Hemoglobin 11.9 g/dL (12.0-15.0); Immature Granulocyte Absolute 0.02 K/mm3 (0.00-0.031); Immature Granulocyte Percent A 0.2 % (0-0.5); Lymphocytes Absolute Auto 1.82 K/mm3 (0.9-3.2); Mean Corpuscular HGB Conc 31.9 g/dl (32-36); Mean Corpuscular Hemoglobin 27.2 pg (26-34); Mean Corpuscular Volume 85.4 fl (80-100); Mean Platelet Volume 11.1 fl (7.4-10.4); Monocytes Absolute Auto 0.6 K/mm3 (0.1-0.6); Monocytes Percent Auto 6.9 % (2.6-8.5); Neutrophils Absolute Auto 6.1 K/mm3 (1.3-6.7); Neutrophils Percent Auto 70.6 % (45.5-73.1); Platelet Count Result 351 k/mm3 (150-375); Red Blood Count 4.37 M/mm3 (4.2-5.4); Red Cell Distribution Width 14.7 % (11.5-14.5); White Blood Count 8.7 K/mm3 (4.5-10.0)
[2024-09-18] MEDS: MORPHINE SULFATE (*CRX) 2 MG/ML INJ IV PUSH (09:28)
[2024-09-18 09:29] LABS: Add Urine Microscopic? NO; Appearance Urine Clear (Clear); Bilirubin Urine Negative (Negative); Blood Urine Negative (Negative); Color Urine Yellow (Yellow); Glucose Urine UA Negative (Negative); Ketones Urine Trace mg/dL (Negative); Leukocyte Esterase Ur Negative LEU/UL (Negative); Nitrate Urine Negative (Negative); Protein Urine Negative (Negative); Specific Grav Ur 1.013 (1.001-1.035); Urobilinogen Urine 0.2 mg/dL (<2.0)
[2024-09-18 09:38] LABS: Alanine Aminotransferase 15 U/L (6-35); Albumin Level 4.3 g/dL (3.5-5.1); Alkaline Phosphatase 65 U/L (38-126); Anion Gap 10 mmol/L (4-12); Aspartate Amino Transferase 19 U/L (14-36); Bilirubin,Total 0.5 mg/dL (0.2-1.3); Blood Urea Nitrogen 8 mg/dL (7-17); Calcium 9.2 mg/dL (8.4-10.2); Carbon Dioxide 28 mmol/L (22-30); Chloride 100 mmol/L (98-107); Estimated CRCL calculation 104 ml/min; Estimated Glomerular Filt Rate > 60; Glucose 93 mg/dL (65-110); Lipase 51 U/L (23-300); Potassium 3.6 mmol/L (3.4-5.0); Sodium 138 mmol/L (137-145)
[2024-09-18] MEDS: MORPHINE SULFATE (*CRX) 4 MG/ML INJ IV PUSH (11:22)
[2024-09-18] MEDS: HYDROmorphone HCL INJ (*CRX) 1 MG/ML SYR IV PUSH (12:08)
== END 2024-09-18 13:14 | disposition home or self-care (01) ==
PROVIDERS: Emergency Medicine; Emergency Provider Registered Nurse
DX: N83.202 Unspecified ovarian cyst, left side (principal); E66.01 Morbid (severe) obesity due to excess calories; Z68.42 Body mass index [BMI] 45.0-49.9, adult
CPT/HCPCS: 36415; 76830; 76856; 80053; 81003; 81025; 83690; 85025; 96361; 96374; 96375; 96376; 99284; J1171; J2270; J7030

== ENCOUNTER 2024-09-19 07:53 | Day surgery (SDC) | payer OTHER, SELFPAY ==
[2024-09-19 08:06] VITALS: BP 123/60; PULSE 72; RESP 18; TEMP 37; O2SAT 100
[2024-09-19 09:06] LABS: Basophils Percent Auto 0.4 % (0.2-1.2); Eosinophils Absolute Auto 0.1 K/mm3 (0-0.3); Eosinophils Percent Auto 1.5 % (0-4.4); Hematocrit 36.7 % (37.0-47.0); Hemoglobin 11.7 g/dL (12.0-15.0); Immature Granulocyte Absolute 0.03 K/mm3 (0.00-0.031); Immature Granulocyte Percent A 0.4 % (0-0.5); Lymphocytes Absolute Auto 1.63 K/mm3 (0.9-3.2); Lymphocytes Percent Auto 20.3 % (18.3-44.2); Mean Corpuscular HGB Conc 31.9 g/dl (32-36); Mean Corpuscular Hemoglobin 27.4 pg (26-34); Mean Corpuscular Volume 85.9 fl (80-100); Mean Platelet Volume 10.6 fl (7.4-10.4); Monocytes Absolute Auto 0.7 K/mm3 (0.1-0.6); Monocytes Percent Auto 8.4 % (2.6-8.5); Neutrophils Absolute Auto 5.5 K/mm3 (1.3-6.7); Platelet Count Result 354 k/mm3 (150-375); Red Blood Count 4.27 M/mm3 (4.2-5.4); Red Cell Distribution Width 14.8 % (11.5-14.5)
[2024-09-19 09:16] LABS: BEDSIDEPREGUCG Negative (Negative)
[2024-09-19 09:25] LABS: Add Urine Microscopic? YES; Appearance Urine Cloudy (Clear); Bacteria Urine Rare /hpf; Bilirubin Urine Negative (Negative); Blood Urine Negative (Negative); Color Urine Yellow (Yellow); Glucose Urine UA Negative (Negative); Ketones Urine Trace mg/dL (Negative); Leukocyte Esterase Ur Negative LEU/UL (Negative); Nitrate Urine Negative (Negative); Non Pathogenic Casts 0-2; Protein Urine Negative (Negative); RBC Urine 0-2 /hpf (0-2); Specific Grav Ur 1.013 (1.001-1.035); Squamous Epithelial Cell Urine Few /hpf (Few); Urobilinogen Urine 0.2 mg/dL (<2.0); WBC Urine 0-5 /hpf (0-3); pH Urine 6.5 (5.0-9.0)
[2024-09-19 09:30] LABS: Alanine Aminotransferase 15 U/L (6-35); Alkaline Phosphatase 53 U/L (38-126); Anion Gap 8 mmol/L (4-12); Aspartate Amino Transferase 22 U/L (14-36); Bilirubin,Total 0.4 mg/dL (0.2-1.3); Blood Urea Nitrogen 8 mg/dL (7-17); Carbon Dioxide 28 mmol/L (22-30); Chloride 102 mmol/L (98-107); Estimated Glomerular Filt Rate > 60; Glucose 91 mg/dL (65-110); Lipase 34 U/L (23-300); Potassium 3.7 mmol/L (3.4-5.0); Sodium 138 mmol/L (137-145)
--- NOTE | 2024-09-19 09:31 | ED.ABDPAIN ---
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 Reports she has been struggling with an ovarian cyst. Pain worsened today which prompted her to be seen. Her garment sorter is Dr. Cedillo. He is recommending surgical removal. Denies fever, dysuria. <PAULA Brennan Last Filed: 09/19/24 10:07> Related Data Home Medications: Home Medications Medication Instructions Recorded Confirmed ferrous sulfate 325 mg (65 mg 325 mg PO DAILY 09/19/24 09/19/24 iron) tablet (FeroSul) <Lisa Duff PA-C - Last Filed: 09/19/24 10:07> Allergies/Adverse Reactions: Allergies Allergy/AdvReac Type Severity Reaction Status Date / Time ibuprofen Allergy Swelling Verified 09/19/24 11:38 of Lip/Tongue/Throat ketorolac [From Toradol] Allergy Swelling Verified 09/19/24 11:38 of Lip/Tongue/Throat <Lisa Duff PA-C - Last Filed: 09/19/24 10:07> Review of Systems Review of Systems: CONSTITUTIONAL: Denies fever GASTROINTESTINAL: Reports abdominal pain GENITOURINARY: Denies dysuria or hematuria. <PAULA Brennan Last Filed: 09/19/24 10:07> All systems reviewed & are unremarkable except as noted in HPI and below <Lisa Duff PA-C - Last Filed: 09/19/24 10:07> [facility] Past Medical History Medical History: Medical History Morbid obesity with BMI of 45.0-49.9, adult Seasonal allergies <Lisa Duff PA-C - Last Filed: 09/19/24 10:07> Social History Social History: Social History (Updated 09/19/24 @ 09:33 by Lisa Duff PA-C) Smoking status: Never smoker Second hand tobacco smoke exposure: No Alcohol intake: never Substance use: never Do You Feel Safe in your Home?: Yes Lack of Transportation: No Lack of Food: Never True Current Housing: I Have Housing Concerned About Future Housing: No Difficulty Paying Gas/Electric Bills: No Difficulty Paying for Meds: No Currently Unemployed: No Education: High School Diploma/GED Difficulty w/ Childcare or Family Care: No Spiritual care concerns: No <Lisa Duff PA-C - Last Filed: 09/19/24 10:07> Exam Narrative: GENERAL: Well-appearing, well-nourished, and in no acute distress. HEAD: Normocephalic, atraumatic. EYES: EOMI. CHEST: Clear to auscultation. No respiratory distress. No wheezes rales or rhonchi HEART: Regular rate and rhythm. No murmur heard. Normal peripheral pulses. ABDOMEN: Soft, nondistended, normal active bowel sounds. Tender to palpation throughout the lower abdomen, without guarding EXTREMITIES: Normal range of motion. No edema. SKIN: Warm, dry, no rash. NEURO: No focal deficits. Alert and oriented x3. PSYCH: Normal mood and affect <Lisa Duff PA-C - Last Filed: 09/19/24 10:07> Course Course Emergency Course: Patient updated on her workup and recommendation for admission for further management <Lisa Duff PA-C - Last Filed: 09/19/24 10:07> PARACHUTIST/COMBATANT DIVER QUALIFIED/PA Physician Supervision For this patient encounter, I reviewed the PARACHUTIST/COMBATANT DIVER QUALIFIED or PA documentation, treatment plan, and medical decision making; and I had [id number] time with this patient. <Jermaine Hinson MD - Last Filed: 09/19/24 18:29> Consultations Consultation #1: Spoke with Dr. Cedillo about patient and workup. Patient will be admitted for pain control, OR tomorrow <Lisa Duff PA-C - Last Filed: 09/19/24 10:07> Date: 09/19/24 <Lisa Duff PA-C - Last Filed: 09/19/24 10:07> Vital Signs Vital signs: Vital Signs Temperature 98.6 F 09/19/24 08:06 Pulse Rate 72 09/19/24 08:06 Respiratory Rate 18 09/19/24 08:06 Blood Pressure 123/60 09/19/24 08:06 Pulse Oximetry 100 09/19/24 08:06 Temperature 97.9 F 09/19/24 10:45 Pulse Rate 67 09/19/24 10:45 Respiratory Rate 18 09/19/24 10:45 Blood Pressure 110/77 09/19/24 10:45 Pulse Oximetry 97 09/19/24 10:45 Oxygen Delivery Room Air 09/19/24 10:45 <Lisa Duff PA-C - Last Filed: 09/19/24 10:07> Vital Signs Temperature 98.6 F 09/19/24 08:06 Pulse Rate 72 09/19/24 08:06 Respiratory Rate 18 09/19/24 08:06 Blood Pressure 123/60 09/19/24 08:06 Pulse Oximetry 100 09/19/24 08:06 Temperature 97.9 F 09/19/24 10:45 Pulse Rate 67 09/19/24 10:45 Respiratory Rate 18 09/19/24 10:45 Blood Pressure 110/77 09/19/24 10:45 Pulse Oximetry 97 09/19/24 10:45 Oxygen Delivery Room Air 09/19/24 10:45 <Jermaine Hinson MD - Last Filed: 09/19/24 18:29> MDM - Abdominal Pain MDM Narrative Medical decision making narrative: Patient presents to the emergency department for ongoing discomfort due to a large ovarian cyst. Cbc without leukocytosis. Hemoglobin appears stable. Urine without evidence of infection. test is negative. Ultrasound from yesterday reviewed which showed stable 9.9 cm cyst in left ovary, probably benign. Spoke with Dr. Cedillo about patient and workup. Patient will be admitted for pain control, OR tomorrow <Lisa Duff PA-C - Last Filed: 09/19/24 10:07> Differential Diagnosis Differential diagnosis: Likely calculus of kidney and other (ovarian cyst, torsion) <Lisa Duff PA-C - Last Filed: 09/19/24 10:07> Lab Data Attestation: I reviewed the patient's lab results. <Lisa Duff PA-C - Last Filed: 09/19/24 10:07> Result diagrams: 09/19/24 09:00 09/19/24 09:00 <Lisa Dfuf PA-C - Last Filed: 09/19/24 10:07> Labs: Lab Results 09/19/24 09/19/24 09/19/24 Range/Units 09:00 09:11 09:13 WBC 8.0 (4.5-10.0) K/mm3 RBC 4.27 (4.2-5.4) M/mm3 Hgb 11.7 L (12.0-15.0) g/dL Hct 36.7 L (37.0-47.0) % MCV 85.9 (80-100) fl MCH 27.4 (26-34) pg MCHC 31.9 L (32-36) g/dl RDW 14.8 H (11.5-14.5) % Plt Count 354 (150-375) k/mm3 MPV 10.6 H (7.4-10.4) fl Immature Gran % (Auto) 0.4 (0-0.5) % Neut % (Auto) 69.0 (45.5-73.1) % Lymph % (Auto) 20.3 (18.3-44.2) % [place] % (Auto) 8.4 (2.6-8.5) % Eos % (Auto) 1.5 (0-4.4) % Baso % (Auto) 0.4 (0.2-1.2) % Lymph # (Auto) 1.63 (0.9-3.2) K/mm3 [place] # (Auto) 0.7 H (0.1-0.6) K/mm3 Eos # (Auto) 0.1 (0-0.3) K/mm3 Baso # (Auto) 0.0 (0.0-0.1) K/mm3 Abs Immat Gran (auto) 0.03 (0.00-0.031) K/mm3 Absolute Neuts (auto) 5.5 (1.3-6.7) K/mm3 Absolute Nucleated RBC 0.000 (0.0-0.012) K/mm3 Nucleated RBC % 0.0 (0.0-0.2) % Sodium 138 (137-145) mmol/L Potassium 3.7 (3.4-5.0) mmol/L Chloride 102 (98-107) mmol/L Carbon Dioxide 28 (22-30) mmol/L Anion Gap 8 (4-12) mmol/L BUN 8 (7-17) mg/dL Creatinine 1.00 (0.7-1.0) mg/dL Estim Creat Clear Calc Not Reportable Estimated GFR > 60 (59 - ) Glucose 91 (65-110) mg/dL Calcium 9.0 (8.4-10.2) mg/dL Total Bilirubin 0.4 (0.2-1.3) mg/dL AST 22 (14-36) U/L ALT 15 (6-35) U/L Alkaline Phosphatase 53 (38-126) U/L Total Protein 8.0 (6.3-8.2) g/dL Albumin 4.0 (3.5-5.1) g/dL Lipase 34 (23-300) U/L Urine Color Yellow (Yellow) Urine Appearance Cloudy H (Clear) Urine pH 6.5 (5.0-9.0) Ur Specific [place] 1.013 (1.001-1.035) Urine Protein Negative (Negative) mg/dL Urine Glucose (UA) Negative (Negative) mg/dL Urine Ketones Trace H (Negative) mg/dL Ur Blood (Man) Negative (Negative) Urine Nitrate Negative (Negative) Urine Bilirubin Negative (Negative) Urine Urobilinogen 0.2 (<2.0) mg/dL Leukocyte Esterase Rfl Negative (Negative) CELESTE/UL Urine RBC 0-2 (0-2) /hpf Urine WBC 0-5 (0-3) /hpf Ur Squamous Epith Cells Few (Few) /hpf Urine Bacteria Rare /hpf Urine Casts 0-2 POC Urine HCG, Qual Negative (Negative) <Lisa L. Duff, PA-C - Last Filed: 09/19/24 10:07> Lab Results 09/19/24 09/19/24 09/19/24 Range/Units 09:00 09:11 09:13 WBC 8.0 (4.5-10.0) K/mm3 RBC 4.27 (4.2-5.4) M/mm3 Hgb 11.7 L (12.0-15.0) g/dL Hct 36.7 L (37.0-47.0) % MCV 85.9 (80-100) fl MCH 27.4 (26-34) pg MCHC 31.9 L (32-36) g/dl RDW 14.8 H (11.5-14.5) % Plt Count 354 (150-375) k/mm3 MPV 10.6 H (7.4-10.4) fl Immature Gran % (Auto) 0.4 (0-0.5) % Neut % (Auto) 69.0 (45.5-73.1) % Lymph % (Auto) 20.3 (18.3-44.2) % [place] % (Auto) 8.4 (2.6-8.5) % Eos % (Auto) 1.5 (0-4.4) % Baso % (Auto) 0.4 (0.2-1.2) % Lymph # (Auto) 1.63 (0.9-3.2) K/mm3 [place] # (Auto) 0.7 H (0.1-0.6) K/mm3 Eos # (Auto) 0.1 (0-0.3) K/mm3 Baso # (Auto) 0.0 (0.0-0.1) K/mm3 Abs Immat Gran (auto) 0.03 (0.00-0.031) K/mm3 Absolute Neuts (auto) 5.5 (1.3-6.7) K/mm3 Absolute Nucleated RBC 0.000 (0.0-0.012) K/mm3 Nucleated RBC % 0.0 (0.0-0.2) % Sodium 138 (137-145) mmol/L Potassium 3.7 (3.4-5.0) mmol/L Chloride 102 (98-107) mmol/L Carbon Dioxide 28 (22-30) mmol/L Anion Gap 8 (4-12) mmol/L BUN 8 (7-17) mg/dL Creatinine 1.00 (0.7-1.0) mg/dL Estim Creat Clear Calc Not Reportable Estimated GFR > 60 (59 - ) Glucose 91 (65-110) mg/dL Calcium 9.0 (8.4-10.2) mg/dL Total Bilirubin 0.4 (0.2-1.3) mg/dL AST 22 (14-36) U/L ALT 15 (6-35) U/L Alkaline Phosphatase 53 (38-126) U/L Total Protein 8.0 (6.3-8.2) g/dL Albumin 4.0 (3.5-5.1) g/dL Lipase 34 (23-300) U/L Urine Color Yellow (Yellow) Urine Appearance Cloudy H (Clear) Urine pH 6.5 (5.0-9.0) Ur Specific [place] 1.013 (1.001-1.035) Urine Protein Negative (Negative) mg/dL Urine Glucose (UA) Negative (Negative) mg/dL Urine Ketones Trace H (Negative) mg/dL Ur Blood (Man) Negative (Negative) Urine Nitrate Negative (Negative) Urine Bilirubin Negative (Negative) Urine Urobilinogen 0.2 (<2.0) mg/dL Leukocyte Esterase Rfl Negative (Negative) CELESTE/UL Urine RBC 0-2 (0-2) /hpf Urine WBC 0-5 (0-3) /hpf Ur Squamous Epith Cells Few (Few) /hpf Urine Bacteria Rare /hpf Urine Casts 0-2 POC Urine HCG, Qual Negative (Negative) <Jermaine Hinson MD - Last Filed: 09/19/24 18:29> Imaging Data Radiologist's impression: 09/18: TRANSVAGINAL ULTRASOUND: The endometrial complex measures 12 mm in thickness. There is a 2.6 cm subserosal fibroid. The right ovary measures 3.2 x 2.6 x 2.7 cm. The left ovary measures 9.5 x 10.3 x 9.2 cm. There is a 9.9 x 7.8 x 7.6 cm cyst in left ovary. There is normal vascular flow in the ovaries. IMPRESSION: 1. Stable 9.9 cm cyst in left ovary, probably benign. Consider pelvis MRI without and with contrast or 6-12 month follow-up ultrasound. 2. Uterine fibroid. <Lisa Duff PA-C - Last Filed: 09/19/24 10:07> Critical Care Time Critical Care Time Critical Care Time: No <Lisa Duff PA-C - Last Filed: 09/19/24 10:07> Discharge Plan Discharge Clinical Impression: Ovarian cyst Qualifiers: Laterality: left Qualified Code(s): N83.202 - Unspecified ovarian cyst, left side <Lisa Duff PA-C - Last Filed: 09/19/24 10:07> Patient Disposition: Still a Patient <Lisa Duff PA-C - Last Filed: 09/19/24 10:07> Condition: Stable <Lisa Duff PA-C - Last Filed: 09/19/24 10:07>
[2024-09-19] MEDS: ONDANSETRON INJ 4 MG/2 ML VIAL IV PUSH ×2 (09:35→17:00)
[2024-09-19] MEDS: MORPHINE SULFATE (*CRX) 4 MG/ML INJ IV PUSH ×2 (09:35→19:07)
[2024-09-19 10:17] VITALS: BP 123/84; PULSE 66; RESP 17; O2SAT 96
[2024-09-19 10:45] VITALS: BP 110/77; PULSE 67; RESP 18; TEMP 36.6; O2SAT 97
--- NOTE | 2024-09-19 10:45 | ADMGEN ---
This patient, Judi Ambrocio, was admitted to OB 2nd Floor Room 290-00. Patient/family oriented to hospital policies and general routines including ID bracelet, bed and alarms, visiting hours, pain management, procedures, bathroom and other care routines, personal items, smoking policy, room service/diet, and visiting hours. Information on how to activate the Rapid Response Team has been discussed. Patient/Family are encouraged to report perceived risks to care and to ask questions if they do not understand what they are told or what they should do.
[2024-09-19] MEDS: HYDROcodone/acetaminophen (*CRX) 10-325 MG TABLET 1 TAB PO ×3 (12:14→21:59)
[2024-09-19 19:59] VITALS: BP 96/59; PULSE 73; RESP 18; TEMP 36.8; O2SAT 99
[2024-09-20] VITALS (9 sets, daily range): BP systolic 103–127; BP diastolic 55–84; PULSE 66–85; RESP 16–24; TEMP 36.4–37.1; O2SAT 95–100
[2024-09-20] MEDS: ONDANSETRON INJ 4 MG/2 ML VIAL IV PUSH ×3 (00:15→18:58)
[2024-09-20] MEDS: HYDROcodone/acetaminophen (*CRX) 10-325 MG TABLET 1 TAB PO (03:27)
[2024-09-20] MEDS: MORPHINE SULFATE (*CRX) 4 MG/ML INJ IV PUSH (06:00)
--- NOTE | 2024-09-20 07:12 | WPDANESEPPF ---
Anes - Initial Pre Proc Eval Procedure: Operation Date: 09/20/24 07:30 Proposed Procedures p Laparoscopic Left Ovarian Cystectomy - Christiano Santiago MD Date/Time: 09/20/24 07:12 Surgeon: Christiano Santiago MD Pre Op Diagnosis: Left Ovarian Cyst Patient Data Age: 34 Gender: F Height: 1.65 m Weight: 129 kg Last Vital Signs Temp 37.1 C 09/20/24 06:20 Pulse 73 09/20/24 06:20 Resp 18 09/20/24 06:20 BP 103/55 L 09/20/24 06:20 Pulse Ox 96 09/20/24 06:20 O2 Del Method Room Air 09/20/24 06:20 Allergies Allergy/AdvReac Type Severity Reaction Status Date / Time ibuprofen Allergy Swelling Verified 09/19/24 11:38 of Lip/Tongue/Throat ketorolac [From Toradol] Allergy Swelling Verified 09/19/24 11:38 of Lip/Tongue/Throat Home Medications Medication Instructions Recorded Confirmed Type ferrous sulfate 325 mg (65 mg 325 mg PO DAILY 09/19/24 09/19/24 History iron) tablet (FeroSul) Laboratory Tests 09/19/24 09/19/24 09/19/24 09:00 09:11 09:13 WBC 8.0 K/mm3 (4.5-10.0) RBC 4.27 M/mm3 (4.2-5.4) Hgb 11.7 L g/dL (12.0-15.0) Hct 36.7 L % (37.0-47.0) MCV 85.9 fl (80-100) MCH 27.4 pg (26-34) MCHC 31.9 L g/dl (32-36) RDW 14.8 H % (11.5-14.5) Plt Count 354 k/mm3 (150-375) MPV 10.6 H fl (7.4-10.4) Immature Gran % (Auto) 0.4 % (0-0.5) Neut % (Auto) 69.0 % (45.5-73.1) Lymph % (Auto) 20.3 % (18.3-44.2) [place] % (Auto) 8.4 % (2.6-8.5) Eos % (Auto) 1.5 % (0-4.4) Baso % (Auto) 0.4 % (0.2-1.2) Lymph # (Auto) 1.63 K/mm3 (0.9-3.2) [place] # (Auto) 0.7 H K/mm3 (0.1-0.6) Eos # (Auto) 0.1 K/mm3 (0-0.3) Baso # (Auto) 0.0 K/mm3 (0.0-0.1) Abs Immat Gran (auto) 0.03 K/mm3 (0.00-0.031) Absolute Neuts (auto) 5.5 K/mm3 (1.3-6.7) Absolute Nucleated RBC 0.000 K/mm3 (0.0-0.012) Nucleated RBC % 0.0 % (0.0-0.2) Sodium 138 mmol/L (137-145) Potassium 3.7 mmol/L (3.4-5.0) Chloride 102 mmol/L (98-107) Carbon Dioxide 28 mmol/L (22-30) Anion Gap 8 mmol/L (4-12) BUN 8 mg/dL (7-17) Creatinine 1.00 mg/dL (0.7-1.0) Estim Creat Clear Calc Not Reportable Estimated GFR > 60 (59 - ) Glucose 91 mg/dL (65-110) Calcium 9.0 mg/dL (8.4-10.2) Total Bilirubin 0.4 mg/dL (0.2-1.3) AST 22 U/L (14-36) ALT 15 U/L (6-35) Alkaline Phosphatase 53 U/L (38-126) Total Protein 8.0 g/dL (6.3-8.2) Albumin 4.0 g/dL (3.5-5.1) Lipase 34 U/L (23-300) Urine Color Yellow (Yellow) Urine Appearance Cloudy H (Clear) Urine pH 6.5 (5.0-9.0) Ur Specific [place] 1.013 (1.001-1.035) Urine Protein Negative mg/dL (Negative) Urine Glucose (UA) Negative mg/dL (Negative) Urine Ketones Trace H mg/dL (Negative) Ur Blood (Man) Negative (Negative) Urine Nitrate Negative (Negative) Urine Bilirubin Negative (Negative) Urine Urobilinogen 0.2 mg/dL (<2.0) Leukocyte Esterase Rfl Negative CELESTE/UL (Negative) Urine RBC 0-2 /hpf (0-2) Urine WBC 0-5 /hpf (0-3) Ur Squamous Epith Cells Few /hpf (Few) Urine Bacteria Rare /hpf Urine Casts 0-2 POC Urine HCG, Qual Negative (Negative) Patient hx anesthesia problems: none Family hx anesthesia problems: none Results Review: All pre-operative results and documents have been reviewed as part of the pre-operative evaluation. [facility] Past Medical History Medical History Morbid obesity with BMI of 45.0-49.9, adult Seasonal allergies Social History Social History Smoking status: Never smoker Second hand tobacco smoke exposure: No Alcohol intake: never Substance use: never Do You Feel Safe in your Home?: Yes Lack of Transportation: No Lack of Food: Never True Current Housing: I Have Housing Concerned About Future Housing: No Difficulty Paying Gas/Electric Bills: No Difficulty Paying for Meds: No Currently Unemployed: No Education: High School Diploma/GED Difficulty w/ Childcare or Family Care: No Spiritual care concerns: No Anes - Eval Final PreProcedure Day of Procedure 09/20/24 07:12 Patient weight: morbidly obese Heart: regular rate and rhythm Lungs: clear to auscultation Airway: Mallampati scale class III Neurological: alert and oriented Last oral intake: >/= 8 hours ASA classification: III Emergent: no Anesthetic plan: proceed Anesthesia type and monitoring: general ETT and standard monitoring Results Review: All pre-operative results and documents have been reviewed as part of the pre-operative evaluation. Informed Consent: The patient's anesthetic plan and its attendant risks and benefits were discussed with the patient/family/POA. Questions were solicited and answers provided to the satisfaction of the patient/family/POA.
--- NOTE | 2024-09-20 07:13 | P.HP_ITS ---
H&P: HPI History of Present Illness Date/Time: 09/20/24 07:13 Chief Complaint: Pelvic pain Narrative: this patient is a 34-year-old female with severe pelvic pain and a 10cm ovarian cyst. She is admitted through the emergency department. We discussed the etiology, natural history, treatment of ovarian cyst. Repeating the for with laparoscopic Left ovarian cystectomy. The patient understands the details of the procedure. The procedure has been explained in detail. She understands the risks. She understands that injuries may occur that result in hospitalization, more surgery, and severe illness. She understands risk of hemorrhage and infection. She denies any chest pain or shortness of breath. She denies any nausea, vomiting, fever, chills. Review of Systems Review of Systems: All systems reviewed & are unremarkable except as noted in HPI and below Constitutional: Constitutional: Denies chills, Denies fatigue, Denies fever(s) and Denies weakness Eyes: Eyes: Denies blurry vision, Denies change in vision, Denies loss of peripheral vision, Denies loss of vision, Denies other visual disturbances and Denies eye pain ENT: Denies vertigo, Denies dizziness, Denies hearing loss, Denies mouth pain, Denies nasal obstruction, Denies neck mass and Denies neck pain Cardiovascular: Cardiovascular: Denies chest pain, Denies diaphoresis, Denies syncope, Denies leg edema and Denies dyspnea Respiratory: Respiratory: Denies chest congestion, Denies cough, Denies hemoptysis, Denies dyspnea and Denies wheezing Gastrointestinal: Gastrointestinal: Denies abdominal pain, Denies constipation, Denies diarrhea, Denies nausea and Denies vomiting Genitourinary: Genitourinary: Denies hematuria, Denies change in libido, Denies nocturia, Denies genital lesions, Denies flank pain and Denies urinary urgency Musculoskeletal: Musculoskeletal: Denies abnormal gait, Denies back pain, Denies myalgias, Denies arthralgias, Denies joint swelling, Denies muscle weakness and Denies neck pain Integumentary/Breasts: Skin/Breast: Denies swelling, Denies breast pain, Denies breast mass, Denies dry skin, Denies nipple discharge, Denies unusual bruising and Denies jaundice Neurologic: Denies Neuro-related abnormal movements, Denies Abnormal speech present, Denies abnormal gait, Denies behavioral changes, Denies confusion, Denies vertigo, Denies dizziness, Denies syncope, Denies loss of vision, Denies memory loss, Denies convulsions and Denies weakness Psychiatric: Psychiatric: Denies abnormal sleep pattern, Denies behavioral changes, Denies change in libido, Denies confusion, Denies depression, Denies anhedonia and Denies memory loss Endocrine: Endocrine: Reports no additional endocrine complaints, Denies change in libido and Denies fatigue Hematologic/Lymphatic: Hematologic/Lymphatic: Reports no additional hematologic/lymphatic complaints Allergic/Immunologic: Allergic/Immunologic: Reports no additional allergic/immunologic complaints and Denies wheezing PMFSH Past Medical History Medical History Morbid obesity with BMI of 45.0-49.9, adult Seasonal allergies Social History Social History Smoking status: Never smoker Second hand tobacco smoke exposure: No Alcohol intake: never Substance use: never Do You Feel Safe in your Home?: Yes Lack of Transportation: No Lack of Food: Never True Current Housing: I Have Housing Concerned About Future Housing: No Difficulty Paying Gas/Electric Bills: No Difficulty Paying for Meds: No Currently Unemployed: No Education: High School Diploma/GED Difficulty w/ Childcare or Family Care: No Spiritual care concerns: No Meds Home Medications and Allergies Home Medications Medication Instructions Recorded Confirmed Type ferrous sulfate 325 mg (65 mg 325 mg PO DAILY 09/19/24 09/19/24 History iron) tablet (FeroSul) Allergies Allergy/AdvReac Type Severity Reaction Status Date / Time ibuprofen Allergy Swelling Verified 09/19/24 11:38 of Lip/Tongue/Throat ketorolac [From Toradol] Allergy Swelling Verified 09/19/24 11:38 of Lip/Tongue/Throat Vital Signs Vital Signs - 24 hr 09/19/24 08:06 09/19/24 10:17 09/19/24 10:45 Temperature 98.6 F 97.9 F Pulse Rate 72 66 67 Respiratory Rate 18 17 18 Blood Pressure 123/60 123/84 110/77 Pulse Oximetry 100 96 97 Oxygen Delivery 09/19/24 10:45 09/19/24 19:59 09/19/24 19:59 Temperature 98.2 F Pulse Rate 73 73 Respiratory Rate 18 18 Blood Pressure 96/59 L Pulse Oximetry 99 99 Oxygen Delivery Room Air Room Air 09/20/24 06:20 Temperature 98.7 F Pulse Rate 73 Respiratory Rate 18 Blood Pressure 103/55 L Pulse Oximetry 96 Oxygen Delivery Room Air Exam Const: General: cooperative, healthy appearing, comfortable and no acute distress Orientation/consciousness: oriented to person, oriented to place and oriented to time HENMT: Head: normal to inspection Ears: external ears normal Face/Nose/Sinus: Normal external nose present and normal facial exam Face and sinus: normal facial exam Eyes: General: appearance normal, both eyes and all related structures Neck: Neck: normal visual inspection, trachea midline and supple Resp: Auscultation: clear to auscultation bilaterally, no crackles, no rales, no rhonchi and no wheezes Cardio: Rate: regular rate Rhythm: regular rhythm Heart sounds: no click, no murmurs and no rubs GI: GI Palp: No abdominal tenderness, No Soft to palpation, No Tenderness to palpation present (GI) and No Palpable mass present Auscultation: normal bowel sounds Skin: General skin exam: normal color and no rashes or lesions noted Neuro: General: oriented to person, oriented to place and oriented to time Extrem: General: normal to inspection, no joint enlargement, no clubbing, cyanosis or edema, no pedal edema and no calf tenderness Psych: Appearance: grossly normal Mental Status: mental status grossly normal Speech and movement: Normal speech and movement present H&P: Results Labs Labs: Short CBC 09/19/24 Range/Units 09:00 WBC 8.0 (4.5-10.0) K/mm3 Hgb 11.7 L (12.0-15.0) g/dL Hct 36.7 L (37.0-47.0) % Plt Count 354 (150-375) k/mm3 BMP 09/19/24 09:00 Sodium 138 Potassium 3.7 Chloride 102 Carbon Dioxide 28 BUN 8 Creatinine 1.00 Glucose 91 Calcium 9.0 Liver Function 09/19/24 Range/Units 09:00 Total Bilirubin 0.4 (0.2-1.3) mg/dL AST 22 (14-36) U/L ALT 15 (6-35) U/L Alkaline Phosphatase 53 (38-126) U/L Albumin 4.0 (3.5-5.1) g/dL Urine 10/31/24 Range/Units 09:11 Urine Color Yellow (Yellow) Urine Appearance Cloudy H (Clear) Urine pH 6.5 (5.0-9.0) Ur Specific [place] 1.013 (1.001-1.035) Urine Protein Negative (Negative) mg/dL Urine Glucose (UA) Negative (Negative) mg/dL Assessment and Plan Assessment and plan (1) Pelvic pain: Code(s): R10.2 - Pelvic and perineal pain Status: Acute (2) Ovarian cyst: Qualifiers: Laterality: left Qualified Code(s): N83.202 - Unspecified ovarian cyst, left side Code(s): N83.209 - Unspecified ovarian cyst, unspecified side Status: Acute Assessment and Plan: 34-year-old female with large left ovarian cyst and severe pelvic pain. we have agreed to performed laparoscopic left ovarian cystectomy. She understands risk, benefits, and alternatives. She has completed the informed consent process on his right proceed.
--- NOTE | 2024-09-20 07:17 | WPDHPUPDATE1 ---
History and Physical Update Update Date/Time: 09/20/24 07:17 History and Physical has been reviewed, including an updated exam of the patient. There are NO changes in the patient's condition. Risks, benefits, and alternatives have been discussed and questions answered. Patient agrees to proceed with procedure.
[2024-09-20] MEDS: LACTATED RINGERS 1,000 ML 30 ML IV CONT ×2 (07:21→10:30)
[2024-09-20] MEDS: SCOPOLAMINE 1 MG PATCH 1 PATCH TRANSDERM (07:21)
--- NOTE | 2024-09-20 10:29 | W.PM.PROC2 ---
Procedure Note - Detailed Date of Procedure 09/20/24 Pre-op Diagnosis Left Ovarian Cyst Post-op Diagnosis Other ( large tubo-ovarian abscess) Procedure Performed laparoscopic left salpingo-oophorectomy with resection of pelvic mass / pelvic abscess Surgeon Christiano Santiago MD Anesthesia General Indications Pelvic pain Findings 10 cm left adnexal tubo-ovarian abscess, normal-appearing tubes and ovaries on the right side. Description of Procedure The patient was taken to the operating room. She was prepped and draped in the dorsal lithotomy position after induction general anesthesia. A 5 mm incision was made with a scalpel on the abdominal skin in the left upper quadrant of the abdomen. A 5 mm trocar was inserted into the intra-abdominal cavity under direct visualization the scope. In the same fashion a 11 mm left lower quadrant trocar was inserted and a 11 mm infraumbilical trocar was inserted. 1.5 hour of adhesiolysis resection of left pelvic mass and adnexal structures. This was done with sharp and blunt dissection, this was done cautery and LigaSure. The ureter on the left side was dissected from the pelvic brim down to the uterine artery on the left side. When the ovary from the uterus the uterus was bleeding vigorously. A running V lock suture was placed along the left periuterine margin. This made it hemostatic. The the entire abscess capsule could not be removed. The deep portions near the uterine artery were left. They were hemostatic and small. The abscess in the left tube and ovary placed in endobag and taken at the level lot left lower trocar site. Surgicel powder was placed over the entire left adnexa. Cystoscopy was performed. Fluid was seen to egress from the left ureter. The pelvis was irrigated. The pneumoperitoneum was reduced. The trocars were removed. Skin was closed with subcuticular 4 micro. The patient's incisions were covered with Dermabond. She was taken recovery room in stable condition. Sponge lap and needle counts were correct x2. Estimated Blood Loss 300 Complications No immediate complications Condition Stable Disposition Same day
--- NOTE | 2024-09-20 11:04 | SUR.PHASEI ---
Simple mask removed 4507.
[2024-09-20] MEDS: oxyCODONE HCL (*CRX) 5 MG TAB IR PO (12:50)
[2024-09-20] MEDS: SIMETHICONE 80 MG TAB.CHEW PO ×2 (12:51→18:55)
[2024-09-20] MEDS: ACETAMINOPHEN 500 MG TABLET 1000 MG PO ×2 (12:51→18:55)
[2024-09-20] MEDS: KETOROLAC 30 MG/ML VIAL (*BKC) IV PUSH ×2 (12:55→18:55)
[2024-09-20] MEDS: ceFAZolin 2 GM/D5W 50 ML 2 GM/50 ML BAG IVPB (12:56)
[2024-09-20] MEDS: DEXTROSE 5%/0.45% SOD CHL 1,000 ML 125 ML IV CONT (13:00)
[2024-09-20] MEDS: metroNIDAZOLE 500 MG/ISO 100ML 500 MG/100 ML BAG 100 MG IVPB (13:46)
[2024-09-20] MEDS: DOXYCYCLINE HYCLATE 100 MG TABLET PO (15:53)
--- NOTE | 2024-09-20 18:30 | PC.NURSE ---
Patient's chart stated an allergy to Ibuprofen and Ketorolac, which are both ordered for patient to receive. This RN went to clarify allergies with the patient and patient stated she believes it was a specific pharmacy brand that she had a reaction to but has since received both medications since and no further reactions. Patient agreeable to receiving both medications and is being monitored.
[2024-09-20] MEDS: DOCUSATE SODIUM 100 MG CAPSULE PO (18:55)
[2024-09-20] MEDS: metroNIDAZOLE 500 MG TABLET PO (21:20)
[2024-09-21] MEDS: ACETAMINOPHEN 500 MG TABLET 1000 MG PO ×3 (00:50→12:50)
[2024-09-21] MEDS: KETOROLAC 30 MG/ML VIAL (*BKC) IV PUSH (00:50)
[2024-09-21 04:00] VITALS: BP 105/64; PULSE 70; RESP 18; TEMP 37; O2SAT 98
[2024-09-21] MEDS: DOXYCYCLINE HYCLATE 100 MG TABLET PO (04:00)
[2024-09-21 07:49] VITALS: BP 99/70; PULSE 68; RESP 16; TEMP 37.2; O2SAT 98
[2024-09-21] MEDS: DOCUSATE SODIUM 100 MG CAPSULE PO (08:48)
[2024-09-21] MEDS: metroNIDAZOLE 500 MG TABLET PO (08:48)
[2024-09-21] MEDS: SIMETHICONE 80 MG TAB.CHEW PO ×2 (08:48→12:49)
[2024-09-21] MEDS: oxyCODONE HCL (*CRX) 5 MG TAB IR PO ×2 (08:48→12:50)
--- NOTE | 2024-09-21 09:29 | P.PNOB_ITS ---
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 pt just took medication prior to my arrival will continue to monitor pt is afebrile would like to be dc'd home Review of Systems Review of Systems: All systems reviewed & are unremarkable except as noted in HPI and below Exam Const: General: cooperative, healthy appearing and comfortable Resp: Effort & Inspection: normal respiratory effort Cardio: Rate: regular rate GI: Other: incision CDI Skin: General skin exam: normal color Neuro: General: patient oriented x3 GRAIN BROKER AND MARKET OPERATOR - PN: Obj Data Vital Signs Vital Signs: Vital Signs - 24 hr 09/20/24 10:30 09/20/24 10:45 09/20/24 11:00 Temperature 36.4 C Pulse Rate 85 68 77 Respiratory Rate 16 16 16 Blood Pressure 115/77 121/75 125/80 Pulse Oximetry 95 98 100 Oxygen Delivery Simple Face Mask Simple Face Mask Oxygen Flow Rate 8 8 8 09/20/24 11:15 09/20/24 11:30 09/20/24 12:05 Temperature 37.0 C 36.6 C Pulse Rate 79 70 66 Respiratory Rate 24 H 18 18 Blood Pressure 114/81 127/84 116/68 Pulse Oximetry 98 100 99 Oxygen Delivery Nasal Cannula Nasal Cannula Oxygen Flow Rate 2 2 09/20/24 18:55 09/20/24 18:55 09/20/24 23:30 Temperature 36.9 C 36.6 C Pulse Rate 69 73 Respiratory Rate 16 16 Blood Pressure 115/69 114/62 Pulse Oximetry 98 98 Oxygen Delivery Room Air Oxygen Flow Rate 09/20/24 23:30 09/21/24 04:00 09/21/24 04:00 Temperature 37.0 C Pulse Rate 70 Respiratory Rate 18 Blood Pressure 105/64 Pulse Oximetry 98 Oxygen Delivery Room Air Room Air Oxygen Flow Rate 09/21/24 06:50 09/21/24 07:49 Temperature 37.2 C Pulse Rate 68 Respiratory Rate 16 Blood Pressure 99/70 L Pulse Oximetry 98 Oxygen Delivery Room Air Oxygen Flow Rate Intake/Output Intake/Output: Intake & Output 09/18/24 09/19/24 09/20/24 09/21/24 23:59 23:59 23:59 23:59 Intake Total 300 1400 Output Total 600 Balance 300 800 Meds/Results Medications: Active Medications Generic Name Dose Route Start Last Admin Trade Name Juanq PRN Reason Stop Dose Admin Acetaminophen 1,000 mg 09/20/24 12:00 09/21/24 06:50 Acetaminophen 500 Mg Tablet PO 1,000 mg Q6HR CLEOPATRA Administration Docusate Sodium 100 mg 09/20/24 17:00 09/21/24 08:48 Docusate Sodium 100 Mg Capsule PO 100 mg BID CLEOPATRA Administration Doxycycline Hyclate 100 mg 09/20/24 14:45 09/21/24 04:00 Doxycycline Hyclate 100 Mg Tablet PO 100 mg Q12HR CLEOPATRA Administration Ceftriaxone Sodium 1 gm in 50 mls @ 100 mls/hr 09/20/24 15:00 09/20/24 15:50 Rocephin 1 Gm/Ns 50 Ml IVPB 100 mls/hr Q24H CLEOPATRA Administration Ibuprofen 600 mg 09/21/24 06:00 09/21/24 06:51 Ibuprofen 600 Mg Tablet PO Not Given Q6HR CLEOPATRA Metronidazole 500 mg 09/20/24 21:00 09/21/24 08:48 Metronidazole 500 Mg Tablet PO 500 mg Q12HR CLEOPATRA Administration Morphine Sulfate 4 mg 09/19/24 10:05 09/20/24 06:00 Morphine Sulfate (*Crx) 4 Mg/Ml Inj IV PUSH 4 mg Q4H PRN Administration Pain Rated 7-10 Naloxone HCl 0.1 mg 09/20/24 11:38 Naloxone Hcl 0.4 Mg/Ml Vial IV PUSH Q2M PRN Respiratory rate less than 10 Ondansetron HCl 4 mg 09/20/24 11:38 09/20/24 18:58 Ondansetron Inj 4 Mg/2 Ml Vial IV PUSH 4 mg Q6H PRN Administration Nausea And Vomiting Oxycodone HCl 5 mg 09/20/24 11:38 09/21/24 08:48 Oxycodone Hcl (*Crx) 5 Mg Tab Ir PO 5 mg Q4H PRN Administration Pain Rated 4-6 Oxycodone HCl 10 mg 09/20/24 11:38 Oxycodone Hcl (*Crx) 5 Mg Tab Ir PO Q6H PRN Pain Rated 7-10 Simethicone 80 mg 09/20/24 12:00 09/21/24 08:48 Simethicone 80 Mg Tab.Chew PO 80 mg TIDWM CLEOPATRA Administration Labs 09/19/24 09:00 09/19/24 09:00
== END 2024-09-21 14:15 | disposition home or self-care (01) ==
LOC: ANHED 10:04 → ANHOB2 09-20 07:21 → ANHSURGERY 09-23 09:00
PROVIDERS: Emergency Medicine; Emergency Provider Physician Assistant; PCP Internal Medicine Gastroenterology; Visit Provider Obstetrics & Gynecology
PROC: (CPT 49320; principal; 2024-09-20 07:30)
DX: N70.11 Chronic salpingitis (principal); N80.102 Endometriosis of left ovary, unspecified depth; N73.6 Female pelvic peritoneal adhesions (postinfective); E66.01 Morbid (severe) obesity due to excess calories; Z68.42 Body mass index [BMI] 45.0-49.9, adult
CPT/HCPCS: 58661; 36415; 80053; 81001; 81025; 83690; 85025; 88305; 96374; 96375; 99199; 99285; A9270; J0690; J0696; J1100; J1836; J1885; J2250; J2270; J2405; J2704; J3010; J7120; Q9968

== ENCOUNTER 2024-11-15 10:45 | Outpatient (CLI) | payer OTHER, SELFPAY ==
--- NOTE | ~2024-11-15 | XR_ITS ---
EXAMINATION:XR cervical spine 4-5V DATE: 11/15/2024 11:03 INDICATION: Otalgia TECHNIQUE: AP, lateral, lateral swimmers and odontoid views of the cervical spine are provided. COMPARISON: None FINDINGS: There is straightening of the normal cervical lordosis. Odontoid is intact. Normal atlantoaxial inte rval. Vertebral body heights are normal. Disc spaces are normal. There are small anterior endplate os teophytes at C4-C5 and C5-C6. There is mild cervical facet and uncovertebral osteoarthritis. Preverte bral soft tissues are normal. IMPRESSION: 1. Straightening of the normal cervical lordosis with very mild spondylosis. Reviewed, dictated and finalized at location B. [employer] REPAIR[employer]
== END 2024-11-15 10:46 | disposition home or self-care (01) ==
PROVIDERS: PCP Family Medicine; Visit Provider Family Medicine
DX: M47.812 Spondylosis without myelopathy or radiculopathy, cervical region (principal); M53.82 Other specified dorsopathies, cervical region; M54.2 Cervicalgia
CPT/HCPCS: 72050

== ENCOUNTER 2025-02-18 13:21 | Outpatient (CLI) | payer OTHER, SELFPAY ==
[2025-02-18 14:13] LABS: Hematocrit 35.2 % (37.0-47.0); Hemoglobin 11.1 g/dL (12.0-15.0)
--- OUTSIDE RECORDS SUMMARY | 2025-02-18 14:32 | XMS_ITS | Clinical Summary ---
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 Name Role Phone Laura Parr Primary Care Provider Allergies No known active allergies Social History Tobacco Use Types Packs/Day Years Used Date Smoking Tobacco: Never Smokeless Tobacco: Never Tobacco Cessation:Counseling Given: Not Answered Alcohol Use Standard Drinks/Week Comments Not Currently 0 (1 standard drink = 0.6 oz pur e alcohol) Comments No Sex and Gender Information Value Date Recorded Sex Assigned at Not on file Legal Sex Female 4:41 PM CDT Gender Identity Not on file Sexual Orientation Not on file Last Filed Vital Signs Vital Sign Reading Time Taken Comments Blood Pressure 105/73 10/20/2022 1:55 PM BUSINESS ASSOCIATE Pulse 75 10/20/2022 1:55 PM BUSINESS ASSOCIATE Temperature 36.7 C (98.1 F) 10/20/2022 8:28 AM BUSINESS ASSOCIATE Respiratory Rate 18 10/20/2022 1:55 PM BUSINESS ASSOCIATE Oxygen Saturation 100% 10/20/2022 1:55 PM BUSINESS ASSOCIATE Inhaled Oxygen Concentration - - Weight 133 kg (293 lb 3.4 oz) 10/20/2022 8:28 AM BUSINESS ASSOCIATE Height 165.1 cm (5' 5 ) 10/20/2022 8:28 AM BUSINESS ASSOCIATE Body Mass Index 48.79 10/20/2022 8:28 AM BUSINESS ASSOCIATE Plan of Treatment Health Maintenance Due Date Last Done Comments Cervical Cancer Screening Pap Smear (Age 30 to 64) Every 3 Years 1990 Annual Physical 1993 DTaP, Tdap and Td Vaccines (5 - Tdap) 10/16/2007 10/15/2007, 08/14/2002, 07/17/1996, Additional history exists Hepatitis C 2008 HPV Vaccines (3 - 3-dose series) 11/05/2008 08/13/2008, 10/15/2007 Cervical Cancer Screening Pap with HPV Testing (Age 30 to 64) Every 5 Years 2020 Cervical Cancer Screening with HPV 2020 COVID-19 Vaccine ( season) 2024 09/30/2021, 07/23/2021 Hepatitis B Vaccines Completed 09/12/2001, 10/08/1999, 07/17/1996 Meningococcal Vaccine Completed 10/15/2007 Meningococcal B Vaccine Aged Out No l onger eligible based on patient's age to complete this topic Pneumococcal Vaccine: Pediatrics (0 to 5 Years) and At-Risk Patients (6 to 64 Years) Aged Out No longer eligible based on patient's age to complete this topic RSV Immunizations Under 20 Months Aged Out No longer eligible based on patient's age to complete this topic Insurance [place] [address] Care Teams Refrigeration Plant Cork Insulator Relationship Specialty [place] [address] [place] [id number] PCP - General PHYSICIAN RESOURCE AGENT 10/20/22
--- OUTSIDE RECORDS SUMMARY | 2025-02-18 14:32 | XMS_ITS | CONTINUITY OF CARE DOCUMENT ---
Author Name jose cruz, qikassyser Address Unknown Organization [facility] Address [address] [place] [address] Phone [phone] Care Team Providers Care Contract Coordinator Name Role Phone Ryder Rodríguez MD Unavailable CEDRICK VINCENT Unavailable [phone] CEDRICK VINCENT Unavailable PROBLEMS Condition Status Date Provider Notes Chest pain active Ehsan Kam MD Palpitations active Ehsan Kam MD Shortness of breath active Ehsan mistry MD Obesity active Ehsan Kam MD Asthma active Ehsan Kam MD Dizziness active Ehsan Kam MD Fatigue active Ehsan Kam MD ENCOUNTERS Date Type Provider Location Encounter Diag nosis - In-person encounter Office Visit Laura Napier MD [facility] - In-person encounter Office Visit Ryder Rodríguez MD [facility] - In-person encounter Office Visit Ehsan Kam MD [facility] - In-person encounter Office Visit Ehsan Kam MD [facility] Chest painPalpitationsShortness of breathObesityAsthmaDizzinessFatigue VITAL SIGNS Date Observation Value Provider Body Mass Index (Ratio) 49.09 kg/m2 Milad Napier MD blood pressure, diastolic 80 mm[Hg] Cinthia mota [place] blood pressure, systolic 119 mm[Hg] Jason higuera [place] oxygen saturation, oximetry 98 % Judi [place] pulse rate 94 /min Judi [facility] edgard weight E&M 295 [lb_av] Judi [facility] respiratory rate E&M 16 /min Silvia monroy [place] blood pressure, cuff size large Cinthia mota [place] height E&M 65 [in_i] [facility] Body Mass Index (Ratio) 48.75 kg/m2 Awilda Rodríguez MD blood pressure, diastolic 73 mm[Hg] Sa ra Aguilera blood pressure, systolic 112 mm[Hg] Riley a Aguilera oxygen saturation, oximetry 99 % Cheri Aguilera respiratory rate E&M 20 /min Cheri Si ms pulse rate 72 /min Cheri Aguilera weight E&M 293 [lb_av] Cheri Aguilera blood pressure, cuff size regular Sa ra Aguilera height E&M 65 [in_i] Cheri Aguilera Body Mass Index (Ratio) 46.62 kg/m2 Peter Kam MD blood pressure, cuff size large Mt nda Vinson blood pressure, diastolic 72 mm[Hg] Wa nda Vinson blood pressure, systolic 106 mm[Hg] Wan da Vinson oxygen saturation, oximetry 98 % Katy Vinson respiratory rate E&M 12 /min Katy H arper pulse rate 78 /min Katy Vinson weight E&M 280.2 [lb_av] Katy Vinson height E&M 65 [in_i] Katy Vinson blood pressure, diastolic 68 mm[Hg] Crescencio Kat RN blood pressure, systolic 124 mm[Hg] Fan Kat RN Body Mass Index (Ratio) 47.42 kg/m2 Wilfred uribe Pearl blood pressure, resting No Wilfred Kang blood pressure, cuff size large Carmen Cain blood pressure, diastolic 80 mm[Hg] Carmen Cain blood pressure, systolic 122 mm[Hg] Abimael lela Cain oxygen saturation, oximetry 98 % Gretta Ant respiratory rate E&M 16 /min Gretta Ant pulse rate 69 /min Gretta Cain weight E&M 285 [lb_av] Gretta Ant height E&M 65 [in_i] Gretta Cain ALLERGIES No Known Drug Allergies HISTORY OF MEDICATION USE Medication Status Instructions Dates Provider Indications Com ments albuterol sulfate 90 mcg/actuation HFA aerosol inhaler active INHALE 2 PUFFS EVERY 4 HOURS NEEDED FOR SHORTNESS OF BREATH OR WHEEZING *BRAND NAME:VENTOLIN* Ryder Rodríguez MD SOCIAL HISTORY Date Observation Value Provider smoking status Never smoker Judi Cuevas and social history reviewed E&M revi ewed - no changes required Miguel Bardales social history reviewed E&M revi ewed - no changes required Ryder Rodríguez MD social history E&M S moking History: P ezchariah has never smoked. Ryder Rodríguez MD smoking status Never smoker Cheri Aguilera social history reviewed E&M revi ewed - no changes required Ehsan Kam MD number of grandchildren Ehsan Vinson smoking status Never smoker Katy Vinson smoking status Never smoker Fan Kat RN social history reviewed E&M revi ewed - no changes required Xavier Pearl social history E&M Smoking Histo ry: P atient has never smoked. Xavier Pearl alcohol use no Gretta Cain smoking status Never smoker Gretta Cain FUNCTIONAL STATUS Date Observation Value Provider periodic limb movement index absent (0) Fan Kat RN FAMILY HISTORY Family Member Condition Father Negative FH of Coron alee Artery Disease INSURANCE PROVIDERS Payer name Policy type / Coverage type [place] [employer] [place] P[place] MEDICAID (2) Medicaid [id number] ADVANCE DIRECTIVES Name Date DISCUSSED - NO DECISION MADE TREATMENT PLAN Date Name Performer [id number],S, Miguel Ahmedza i [id number],S, Miguel Ahmedza i [id number],S, Miguel Ahmedza i [id number],S, Miguel Ahmedza i [id number],S, Miguel Ahmedza i [id number],C,On albuterol inhaler as needed. Ryder Rodríguez MD [id number],C,Weight loss a dvised. Ryder Rodríguez MD [id number],C,P alpitations with SOB, since 19yo several times a day. Monitor in 2017 was unremarkable. Normal routine stress test in 2017. We will repeat routine stress test and 7 day monitor. Etiology is unknown. Ryder Rodríguez MD [id number],C,F requent episodes of chest pain/tightness at rest, several times a day since pt was 19 yrs old. The etiology of these symptoms is unclear. We will arrange routine stress test. She was advised to use albuterol inhaler during these episodes to see if symptoms resolve. Ryder Rodríguez MD Cardiology Miguel Bardales Cardiology Miguel Bardales Cardiology Miguel Bardales Cardiology Miguel Bardales Cardiology Miguel Bardales Cardiology:On albuterol inhaler as needed. Ryder Rodríguez MD Cardiology:Weight loss advised. Ryder Rodríguez MD Cardiology:Palpitati ons with SOB, since 19yo several times a day. Monitor in 2017 was unremarkable. Normal routine stress test in 2017. We will repeat routine stress test and 7 day monitor. Etiology is unknown. Ryder Rodríguez MD Cardiology:Frequent episodes of chest pain/tightness at rest, several times a day since pt was 19 yrs old. The etiology of these symptoms is unclear. We will arrange routine stress test. She was advised to use albuterol inhaler during these episodes to see if symptoms resolve. Ryder Rodríguez MD EP:start magnesium o xide 400 mgPO bid Orders: E KG (CPT-68617) 9 9213 LTD. Complex (CPT-30566) Ehsan Kam MD EP: O rders: E KG (CPT-65592) 9 9213 LTD. Complex (CPT-09641) Ehsan Kam MD EP: O rders: E KG (CPT-89200) 9 9213 LTD. Complex (CPT-90705) Ehsan Kam MD EP: O rders: E KG (CPT-91835) 9 9213 LTD. Complex (CPT-43808) Ehsan Kam MD Cardiology Edward Patie nt faxed 02/20/17:Weight loss and exercise advised. Xavier Kang Cardiology [place] Patie nt faxed 02/20/17:Orders: S NOMED-CT: [id number] Current Medications Documented (SCT-[id number]) E KG (CPT-45084) Z IO Event (CPT-0296T) Xavier Kang [facility]iology [place] nt faxed 02/20/17:Orders: S leep Study Home (CPT-59324) Xavier Kang [facility]iology [place] faxed 02/20/17:Orders: F VC - 73536 (80949) F RC - 33862 (46021) D LCO - 37810 (31323) Xavier [facility] [place] faxed 02/20/17:Orders: S TR - Routine (CPT-18742) C omplete Echo (CPT-66742) F VC - 32060 (40927) F RC - 73788 (53271) D LCO - 94119 (51014) Xavier [facility] [place] faxed 02/20/17:Location of pain is left anterior chest and occuring randomly. Pain radiates to none. Symptoms associated with pain include shortness of breath, palpitations and dizziness. Orders: E KG (CPT-35098) S TR - Routine (CPT-52318) C omplete Echo (CPT-71329) Xavier [facility] Date Name CT, Coronary Calcium Score Complete Echo Monitor - Telemetry (Mobile Cardiac) Stress Routine Holter Monitor 24 Hr Sleep Study Home DLCO - 82206 FRC - 27642 FVC - 74277 Complete Echo STR - Routine ZIO Event HISTORY OF PROCEDURES Procedure Date Procedure Name Provider Procedure Notes S tatus EKG Ehsan mistry MD completed SNOMED-CT: [id number] Current Medications Documented Ehsan Kam MD completed Stress EKG Ehsan mistry MD completed FVC / MVV with bronchodilator - 27316 Ehsan Kam MD completed FRC - 00978 Ehsan mistry MD completed SpO2 - 19075 Ehsan mistry MD completed DLCO - 93871 Ehsan mistry MD completed ZIO Event Hookup Ehsan benito MD completed EKG Ehsan mistry MD completed SNOMED-CT: [id number] Current Medications Documented Ehsan Kam MD completed
--- OUTSIDE RECORDS SUMMARY | 2025-02-18 14:32 | XMS_ITS | Referral Summary ---
Author Organization [facility] Address [address] [place] [id number] Care Team Providers Care Yarn Carrier Name Role Phone April Valladares MD Primary Care Provider Encounters Date Type Department Care Team Description 02/04/2025 Telephone [facility] [address] [place] [address] Elba Carney MD 02/03/2025 10:30 AM CDT - 02/03/2025 11:59 PM CDT Hospital Encounter [facility] Outpatient Health - Ultrasound [address] [place] [address] Pelvic and perineal pain Discharge Disposition: Discharge to home or self care 01/17/2025 2:45 PM DIP LUBE OPERATOR Office Visit [facility] [address] [place] [address] [address]rd [address] [place] [phone] Elba Carney MD Healthcare maintenance (Primary Dx); Pelvic and perineal pain from Last 3 Months Allergies Active Allergy Reactions Criticality Noted Date Comments Ketorolac Swelling Medium 08/08/2024 Facial swelling Medications No known medications Active Problems Problem Noted Date Diagnosed Date Pelvic and perineal pain 01/18/2025 Overview (01/18/2025): - History notable for left sided pelvic pain that began last year - underwent laparoscopic evaluation with suspected 10 cm endometrioma (per chart review & pt report, unable to see op note). Her left fallopian tube & ovary were subsequently removed with LSO which the pt reports frustration over - Two months ago; however, she then began having recurrent pain - Denies dysmenorrhea or dyschezia - Exam today without palpable mass, normal PFM exam, pain not reproducible Plan: - Discussed possible etiology of pelvic pain including recurrence of endometriosis, other adnexal cyst, adhesive disease or non origin. - Will plan for pelvic ultrasound here to assess for structural cause of discomfort. If normal, could consider trial of ovarian suppression in setting of possible endometriosis. Asthma 02/10/2017 Social History Tobacco Use Types Packs/Day Years Used Date Smoking Tobacco: Unknown Tobacco Cessation:Counseling Given: Not Answered Hunger Vital Sign Answer Date Recorded Within the past 12 months, y ou worried that your food would run out before you got the money to buy more. Never true 01/17/20 25 Within the past 12 months, t he food you bought just didn't last and you didn't have money to get more. Never true 01/17/2025 Comments No Sex and Gender Information Value Date Recorded Sex Assigned at Not on file Legal Sex Female 12:59 PM DIP LUBE OPERATOR Gender Identity Not on file Sexual Orientation Not on file Last Filed Vital Signs Vital Sign Reading Time Taken Comments Blood Pressure 128/74 01/17/2025 2:57 PM DIP LUBE OPERATOR Pulse 108 01/17/2025 2:57 PM DIP LUBE OPERATOR Temperature - - Respiratory Rate 18 01/17/2025 2:57 PM DIP LUBE OPERATOR Oxygen Saturation 100% 01/17/2025 2:57 PM DIP LUBE OPERATOR Inhaled Oxygen Concentration - - Weight 128.8 kg (284 lb) 01/17/2025 2:57 PM DIP LUBE OPERATOR Height 165.1 cm (5' 5 ) 01/17/2025 2:57 PM DIP LUBE OPERATOR Body Mass Index 47.26 01/17/2025 2:57 PM DIP LUBE OPERATOR Plan of Treatment Not on file Procedures Procedure Name Priority Date/Time Associated Diagnosis Comments US PELVIS COMPLETE Schedule Routine, Read Routine (OP Routine) 02/03/2025 10:35 AM CDT Pelvic and perineal pain from Last 3 Months Results * US Pelvis Complete (02/03/2025 10:35 AM CDT) Cul de Sac No free fluid visualized VIEWPOINT Endometrial Thickness 5.4 mm&millim eters VIEWPOINT Polyp(s) 11.7 mm&millim eters VIEWPOINT Anatomical Region Laterality Modality Pelvis N/A Ultrasound 02/03/2025 10:4 0 AM CDT Impressions 02/03/2025 1:42 PM CDT 1- Enlarged uterus with small myoma and probable polyp proximate to the inferior aspect of the anterior endometrial surface. 2- The left ovary is enlarged and has a unilocular non-simple cyst filled throughout with homogenous low-level internal echoes. There is no internal vascularity. The appearance is c/w an endometrioma (O-RADS 2). 3- Non-visualization of the right ovary. Narrative Procedure Note Shaquille Cuevas MD - 02/03/2025 IMPRESSION: 1- Enlarged uterus with small myoma and probable polyp proximate to theinferior aspect of the anterior endometrial surface. 2- The left ovary is enlarged and has a unilocular non-simple cyst filledthroughout with homogenous low-level internal echoes. There is no internalvascularity. The appearance is c/w an endometrioma (O-RADS 2). 3- Non-visualization of the right ovary. us Elba Carney MD IMG US PROCEDURES Fin al Result from Last 3 Months Insurance [facility] Care Teams Yarn Carrier Relationship Specialty Start Date End Date April Valladares MD [address] [place] [id number] PCP - General Gastroenterology 08/12/24
--- OUTSIDE RECORDS SUMMARY | 2025-02-18 14:32 | XMS_ITS | Clinical Summary ---
Author Organization [facility] Address [facility] [place] [address] Care Team Providers Care Wirer Maintenance Name Role Phone April Valladares MD Primary Care Provider Allergies Active Allergy Reactions Criticality Noted Date [...] in setting of possible endometriosis. Asthma 02/10/2017 Encounters Date Type Department Care Team Description 02/04/2025 Telephone [facility] [address] [place] [address] Elba Carney MD 02/03/2025 10:30 AM CDT - 02/03/2025 11:59 PM CDT Hospital Encounter [facility] Outpatient Health - Ultrasound [address] [facility] [place] [address] Pelvic and perineal pain Discharge Disposition: Discharge to home or self care 01/17/2025 2:45 PM [employer] FIN[employer]CI[employer] CONSULTANT Office Visit Obstetrics and Gynecology Clinic [address] [facility]] 3rd Floor [address] [place] [address] Elba Carney MD Healthcare maintenance (Primary Dx); Pelvic and perineal pain from Last 3 Months Surgical History Surgery Date Site/Laterality Comments LAPAROSCOPIC SALPINGOOPHERECTOMY Left Medical History Medical History Date Comments Endometriosis Iron deficiency anemia Social History Tobacco Use Types Packs/Day Years Used Date Smoking Tobacco: Unknown Tobacco Cessation:Counseling Given: Not Answered Hunger Vital Sign Answer Date Recorded Within the past 12 months, y ou worried that your food would run out before you got the money to buy more. Never true 01/17/20 Within the past 12 months, t he food you bought just didn't last and you didn't have money to get more. Never true 01/17/2025 Comments No Sex and Gender Information Value Date Recorded Sex Assigned at Not on file Legal Sex Female 12:59 PM [employer] CONSULTANT Gender Identity Not on file Sexual Orientation Not on file Obstetrics History Para Term AB IAB SAB Ectopic Multiple Livin g Live Births 5 3 3 2 3 3 Date Outcome GA Total Labor Labor/2nd/3rd Weight Sex Type Anes PTL Blaire A1 A5 Name Clin Term Term Term AB AB Last Filed Vital Signs Vital Sign Reading Time Taken Comments Blood Pressure 128/74 01/17/2025 2:57 PM [employer] CONS[employer]ANT Pulse 108 01/17/2025 2:57 PM [employer] CONSULTANT Temperature - - Respiratory Rate 18 01/17/2025 2:57 PM [employer] CONSULTANT Oxygen Saturation 100% 01/17/2025 2:57 PM [employer] CONSULTANT Inhaled Oxygen Concentration - - Weight 128.8 kg (284 lb) 01/17/2025 2:57 PM [employer] CONSULTANT Height 165.1 cm (5' 5 ) 01/17/2025 2:57 PM [employer] CONSULTANT Body Mass Index 47.26 01/17/2025 2:57 PM [employer] CONSULTANT Plan of Treatment Health Maintenance Due Date Last Done Comments Cervical Cancer Screening 1990 Depression Screening 1990 Hepatitis C Screening 1990 DTaP/Tdap/Td Vaccine (6 - Tdap) 10/16/2007 10/15/2007, 08/14/2002, 07/17/1996, Additional history exists Regular Well Visit/Exam 18-64 2008 HPV Vaccines (3 - 3-dose series) 11/05/2008 08/13/20 08, 10/15/2007 Pneumococcal vaccine <65 (1 of 2 - PCV) 2009 Covid-19 Vaccine (3 - 2023-2 5 season) 2024 09/30/2021, 07/23/2021 Influenza Vaccine (#1) 2024 10/02/2015, 2004 Hepatitis B Screening Completed 09/12/2001 , 10/08/1999, 07/17/1996 Varicella Vaccines Completed 10/15/2007, 06/27/2006 Procedures Procedure Name Priority Date/Time Associated Diagnosis [...] 2). 3- Non-visualization of the right ovary. Elba Carney MD IMG US PROCEDURES Fin al Result from Last 3 Months Insurance [facility] Care Teams Wirer Maintenance Relationship Specialty Start Date End Date April Valladares MD [address] [place] [id number] PCP - General Gastroenterology 08/12/24
--- OUTSIDE RECORDS SUMMARY | 2025-02-18 14:32 | XMS_ITS | Data Portability ---
Author Organization [facility] Address [address] [place] [address] Assessment No assessment recorded. Plan of Treatment Reminders Order Date Submit Date Provider Last Modified By Organization Details Last Modified Time Details Appointments SURG Lap Ovarian Cystectom y 2024 01:00P Reynold SANTIAGO MD Not available Not available Not available SURG POST OP 2024 01:15P Reynold SANTIAGO MD Not available Not available Not available Lab None recorded. Referral None recorded. Procedures None recorded. Surgeries chromotub ation of oviduct (SURG) [address], [address] [place] [address], [address], 02/04/2025 09:29:32 laparosco pic ovarian cystectom y (SURG) [address], [address] [place] [address], [place], [address], 02/04/2025 09:29:56 Imaging US, pelvis 2024 025 [email or web address] [place], [address], [address], [place], [address], 01/27/2025 18:08:11 US, transvagi nal 2024 025 [email or web address] [facility], [address], [place], [address], 01/27/2025 18:08:11 US, pelvis 2024 025 [email or web address] [place], [address], [address], [place], [address], 11/28/2024 21:13:44 US, transvagi nal 2024 025 [email or web address] [place], [address], [address], [place], [address], 11/28/2024 21:13:44 Medication Orders None recorded. Patient TargetsNo targets recorded. Patient InstructionsNo instructions recorded. Reason for Referral None Reported. Results Created Date Observation Date Name Description Value Unit Range Abnormal Flag Note LastModifiedBy Organization Detail LastModifiedTime 11/28/1911/28/2024 US, vyvi s No observ ation [facility] [address], [place], [address], 11/28/2024 18:49:48 11/28/19 25 11/28/2024 US, trans vagin al No observ ation record ed. [email or web address] [place] [facility] [address] , [place], [address], 11/28/2024 18:48:55 11/28/19 25 11/28/2024 US, pelvi s No observ ation record ed. [email or web address] [address], [place], [address], 11/28/2024 20:07:40 01/28/20 25 01/27/2025 US, pelvi s No observ ation record ed. [email or web address] [facility] [address], [place], [address], 01/27/2025 12:42:38 01/28/20 25 01/27/2025 US, trans vagin al No observ ation record ed. [email or web address] [facility] [address], [place], [address], 01/27/2025 12:42:48 01/28/2001/27/2025 US, petra s No observ ation record ed. [email or web address] [address], [place], [address], 01/27/2025 14:48:44 Result Notes None recorded. Problems Name Problem SNOMED Code Status Onset Date Resolution Date Notes Provider Name and Address Organization Details Recorded Time Single live 177715862 Active 2014 Mother with single liveborn; Practice ID: 0001 Not Available [facility] 0 15:27:55 Postpartu m care Active 2014 Postpartu m follow-up ;Practice ID: 0001 Not Available [facility] 0 15:27:55 test negative 485533434 Active 2014 Negative Test;Prac marek ID: 0001 Not Available [facility] 0 15:27:55 Insertion of subcutane ous contracep tive Active 2014 Insertion of implantab le subdermal contracep tive;Prac marek ID: 0001 Not Available [facility] 0 15:27:55 Uses combined oral contracep tion 939722295 Active 2018 Encounter for initial prescript ion of contracep tive pills;Pra ctice ID: 0001 Not Available [facility] 0 15:27:55 Routine care Active 2013 Supervisi on of other normal ;Practice ID: 0001 Not Available [facility] 0 15:27:55 Ultrasono graphy Active 2013 screening for malformat ion using ultrasoni cs;Practi ce ID: 0001 Not Available [facility] 0 15:27:55 screening Active 2013 screening for malformat ion using ultrasoni cs;Practi ce ID: 0001 Not Available [facility] 0 15:27:55 Congenita l malformat ion 628785448 Active 2013 screening for malformat ion using ultrasoni cs;Practi ce ID: 0001 Not Available [facility] 0 15:27:55 Excessive growth affecting managemen t of mother 63025644 Active 2013 GROWTH LARGE LGA;Pract ice ID: 0001 Not Available [facility] 0 15:27:55 Maternal care for diminishe d movements Active 2013 Decreased movements , affecting managemen t of mother, antepartu m condition or complicat ion;Pract ice ID: 0001 Not Available [facility] 0 15:27:55 Leukocyto sis 762977020 Active 2014 LEUKOCYTO SIS NOS;Pract ice ID: 0001 Not Available [facility] 0 15:27:55 Poor growth affecting managemen t 965632857 Active 2014 GROWTH POOR SGA;Pract ice ID: 0001 Not Available [facility] 0 15:27:56 Delivery normal 65721438 Active 2014 Normal delivery; Practice ID: 0001 Not Available [facility] 0 15:27:56 Female genital organ symptoms 366813779 Active 2012 Unspecifi ed symptom associate d with female genital organs;Pr actice ID: 0001 Not Available [facility] 0 15:27:56 Threatene d premature labor - not delivered 315056543 Active 2012 Threatene d premature labor, antepartu m;Practic e ID: 0001 Not Available [facility] 0 15:27:56 Complicat ion related to Active 2012 Weight Insuffici ent Antepartu m;Practic e ID: 0001 Not Available [facility] 0 15:27:56 Insuffici ent care [id number] 09 Active 2012 Supervisi on of high-risk with insuffici ent care;Prac marek ID: 0001 Not Available [facility] 0 15:27:56 Family planning surveilla nce Active 2012 Surveilla nce of other contracep tive method;Pr actice ID: 0001 Not Available [facility] 0 15:27:57 Specializ ed medical examinati on Active 2013 Routine gynecolog ical examinati on;Practi ce ID: 0001 Not Available [facility] 0 15:27:57 test positive 640642857 Active 2013 Positive Test;Prac marek ID: 0001 Not Available [facility] 0 15:27:57 Screening for malignant neoplasm of cervix Active 2013 Pap Smear;Pra ctice ID: 0001 Not Available [facility] 0 15:27:57 Abdominal pain 61830476 Active 2011 Abdominal pain, other specified site;Prac marek ID: 0001 Not Available [facility] 0 15:27:58 Education Active 2018 Encounter for other general counselin g and advice on contracep tion;Jovan rded Elsewhere : No Locati on: [facility] So urce: EHR Chron ic: N Practic e ID: 0001 Bill able Time: 01:00:00 PM Not Available [facility] 0 15:27:58 Problem Notes None recorded. Procedures Surgical History Date Name Laterality Status Provider Name and Address Organization Details Recorded Time 01/24/2024 Date of Last Pap Smear completed Chantal Ledezma [facility] 03/21/2024 12:15:30 Imaging Results Imaging Date Name Status LastModified by Organization Details LastModified Time 11/28/2024 US, pelvis completed [email or web address] [place] [address], [place], [address], 11/28/2024 18:49:48 11/28/2024 [facility]vaginal [email or web address] [address], [place], [address], 11/28/2024 18:48:55 11/28/2024 US, pelvis completed [email or web address], [place], [address], 11/28/2024 20:07:40 01/27/2025 US, pelvis completed [email or web address] [place] [facility] [address], [place], [address], 01/27/2025 12:42:38 01/27/2025 US, transvaginal completed [email or web address] [facility] [address], [place], [address], 01/27/2025 12:42:48 01/27/2025 US, pelvis completed [email or web address], [place], [address], 01/27/2025 14:48:44 Procedure Notes None recorded. Medical Equipment None Reported. Allergies No known drug allergies Medications Name Sig Start Date Stop Date Status Note LastModified by Organization Details LastModified Time cyclobenz aprine 10 mg tablet TAKE 1 TABLET BY MOUTH EVERY 8 HOURS NEEDED 03/21 completed Not Available Not Available Not Available Vitamin C 500 mg tablet TAKE 1/2 TABLET BY MOUTH ONCE DAILY. TAKE WITH IRON TABLET active Not Available Not Available No t Available cetirizin e 10 mg tablet TAKE 1 TABLET BY MOUTH ONCE DAILY active Not Available Not Available No t Available ibuprofen 800 mg tablet TAKE 1 TABLET BY MOUTH THREE TIMES DAILY NEEDED 03/21 completed Not Available Not Available Not Available hydrocodo ne 5 mg-acetam inophen 325 mg tablet TAKE 1 TABLET BY MOUTH EVERY 6 HOURS FOR 3 DAYS NEEDED FOR PAIN 11/27 completed Not Available Not Available Not Available fluconazo le 200 mg tablet Take 1 tablet PO on days 1, 4, and 7 days. 08/02 completed Not Available Not Available Not Available topiramat e 25 mg tablet TAKE 1 TABLET BY MOUTH EVERY DAY 03/21 completed Not Available Not Available Not Available metronida zole 500 mg tablet TAKE 1 TABLET BY MOUTH EVERY 12 HOURS 11/29 completed Not Available Not Available Not Available acetamino phen 500 mg tablet TAKE 2 TABLETS BY MOUTH THREE TIMES DAILY NEEDED FOR PAIN active Not Available Not Available No t Available methocarb elgin 750 mg tablet TAKE 2 TABLETS BY MOUTH THREE TIMES DAILY 09/18 completed Not Available Not Available Not Available cephalexi n 500 mg capsule TAKE 1 CAPSULE BY MOUTH EVERY 12 HOURS FOR 7 DAYS 09/26 completed Not Available Not Available Not Available lidocaine 5 % topical patch 09/18 completed Not Available Not Available Not Available monteluka st 10 mg tablet TAKE 1 TABLET BY MOUTH EVERY DAY active Not Available Not Available No t Available ergocalci ferol (vitamin D2) 1,250 mcg (50,000 unit) capsule TAKE 1 CAPSULE BY MOUTH EVERY WEEK active Not Available Not Available No t Available ibuprofen 600 mg tablet TAKE 1 TABLET BY MOUTH EVERY 6 HOURS WITH FOOD NEEDED 03/21 completed Not Available Not Available Not Available albuterol sulfate HFA 90 mcg/actua tion aerosol inhaler INHALE 1 PUFF EVERY 4 HOURS NEEDED FOR SHORTNES S OF BREATH OR WHEEZING active Not Available Not Available No t Available cefdinir 300 mg capsule TAKE 1 CAPSULE BY MOUTH EVERY 12 HOURS 03/21 completed Not Available Not Available Not Available fluticaso ne propionat e 50 mcg/actua tion nasal spray,kaushal pension SHAKE LIQUID AND USE 1 TO 2 SPRAYS IN EACH NOSTRIL DAILY active Not Available Not Available No t Available doxycycli ne hyclate 100 mg tablet TAKE 1 TABLET BY MOUTH EVERY 12 HOURS 01/28 completed Not Available Not Available Not Available amoxicill in 875 mg-potass ium clavulana te 125 mg tablet TAKE 1 TABLET BY MOUTH TWICE DAILY 01/28 completed Not Available Not Available Not Available oxycodone 5 mg tablet TAKE 1 TABLET BY MOUTH EVERY 4 HOURS NEEDED FOR PAIN active Not Available Not Available No t Available Depo-Prov era 150 mg/mL intramusc ular syringe inject 1 millilit er (150MG) by intramus cular route every 3 months 05/07 completed Prescrib ed Elsewher e: No Locat ion: [facility] [address] odify By: [email or web address] tawnya En counter DateTime : 01/29/20 13 02:35:28 PM Not Available Not Available Not Available cyclobenz aprine 5 mg tablet TAKE 1 TABLET BY MOUTH TWICE DAILY NEEDED 09/18 completed Not Available Not Available Not Available 12/09 (28) 1 mg-20 mcg (21)/75 mg (7) tablet take 1 tablet by oral route every day 01/23 completed Prescrib ed Elsewher e: No Locat ion: [facility] [address] odify By: [email or web address] Encounte r DateTime : 01/25/20 19 01:00:00 PM Not Available Not Available Not Available nitrofura ntoin monohydra te/macroc rystals 100 mg capsule TAKE 1 CAPSULE BY MOUTH TWICE DAILY FOR 5 DAYS 03/21 completed Not Available Not Available Not Available duloxetin e 30 mg capsule,d elayed release TAKE 1 CAPSULE BY MOUTH DAILY WITH THE EVENING MEAL active Not Available Not Available No t Available FeroSul 325 mg (65 mg iron) tablet TAKE 1 TABLET BY MOUTH TWICE DAILY active Not Available Not Available No t Available Nexplanon 68 mg subdermal implant 01/24 completed Prescrib ed Elsewher e: Yes Loca tion: [facility] [address] odify By: cassi devlin DateTime : 02/17/20 15 11:00:00 AM Not Available Not Available Not Available Vitals Date Recorded Body height Body mass index (BMI) Body weight Systolic blood pressure Diastolic blood pressure Provider Name and Address Organization Details Last Updated DateTime 11/27/2024 165.1 cm 48.8 kg/m2 816359.5 6 g 120 mm[Hg] 76 mm[Hg] Eneida Riley [facility] 5 17:05:10 Date Recorded Body height Body mass index (BMI) Body weight Systolic blood pressure Diastolic blood pressure Provider Name and Address Organization Details Last Updated DateTime 11/29/2024 165.1 cm 48.3 kg/m2 978739.7 9 g 126 mm[Hg] 52 mm[Hg] Chantal Ledezma [facility] 5 15:29:33 Date Recorded Body height Body mass index (BMI) Body weight Systolic blood pressure Diastolic blood pressure Provider Name and Address Organization Details Last Updated DateTime 01/28/2025 165.1 cm 47.8 kg/m2 320565.0 1 g 117 mm[Hg] 75 mm[Hg] ANA Lynn [facility] 5 11:08:20 Social History Question Answer Notes LastModified by Organizat ion Details LastModified Time Tobacco Smoking Status Never Smoker Chantal rinaldi, [facility] 01/24/2024 15:28:54 What Is Your Level Of Alcohol Consumption? Occasional Information not available 01/24/2024 Are You Blind Or Do You Have Difficulty Seeing? No Information n ot available 01/24/2024 What Is Your Level Of Caffeine Consumption? None Information not available 01/24/2024 In The 14 Days Before Symptom Onset, Have You Had Close Contact With A Laboratory-confirm ed COVID-19 While That Case Was Ill? No Information n ot available 01/24/2024 In The 14 Days Before Symptom Onset, Have You Had Close Contact With A Person Who Is Under Investigation For COVID-19 While That Person Was Ill? No Information not available 01/24/2024 Have You Been To An Area Known To Be High Risk For COVID-19? No Information not available 01/24/2024 Are You Currently Employed? Yes Information not available 01/24/2024 Are You Deaf Or Do You Have Serious Difficulty Hearing? No Information not available 01/24/2024 What Type Of Diet Are You Following? REGULAR Information n ot available 01/24/2024 What Is The Highest Grade Or Level Of School You Have Completed Or The Highest Degree You Have Received? [id number] Information not available 01/24/2024 Are There Any Guns Present In Your Home? No Information not available 01/24/2024 Do You Use Your Seat Belt Or Car Seat Routinely? Yes Information not available 01/24/2024 Are You Sexually Active? No Information not available 01/24/2024 Do You Have Smoke And Carbon Monoxide Detectors In Your Home? Yes Information not available 01/24/2024 Do You Feel Stressed (tense, Restless, Nervous, Or Anxious, Or Unable To Sleep At Night)? [id number] Information not available 01/24/2024 Do You Use Any Illicit Or Recreational Drugs? No Information not available 01/24/2024 Do You Use Sunscreen Routinely? No Information not available 01/24/2024 Sex: Female Functional Status Question Answer Note LastModified by Organizat ion Details LastModified Time Do you have difficulty walking or climbing stairs? No Information not available 01/24/2024 Are you able to walk? YESWOREST Information not available 01/24/2024 Are you able to care for yourself? Yes Information not available 01/24/2024 Do you have difficulty dressing or bathing? No Information not available 01/24/2024 What is your exercise level? Occasional Information not available 01/24/2024 Mental Status None recorded. Family History Relationship Description Onset Age of this Age Resolved Age Notes LastModified by Organization Details LastModified Time Brother Asthma Not available 0 01/18/2024 14:19:54 Mother Asthma Not available 14:19:54 Maternal Grandmother Malignant tumor of breast Not available 2023 15:28:15 Maternal Aunt Malignant tumor of breast Not available 2023 15:28:15 Maternal Uncle Heart disease Not available 2023 15:28:37 Notes:Brother: Asthma Mother : Asthma Medical History Condition Response Allergies (Food, seasonal, environmental ) N Other N Breast Cancer N Drug/Latex Allergies/Reactions N Blood Transfusion N Dermatologic Disorders N Lung Disease N Defects or Inherited Disease N Breast Problem N Gestational Diabetes N Hematologic disorders N Anesthesia Complications N History of STI N Deep Vein Thrombosis N Polycystic ovary syndrome N Anxiety Disorder N Autoimmune disease N Arthritis N Infertility N Polyps N Acid Reflux (GERD) N History of abnormal pap N Cancer N Stroke N Varicosities N Neurologic/Epilepsy N Endometriosis N High Cholesterol N Headaches N Fibromyalgia N Kidney Disease N Heart Problems N Kidney or Bladder Problems N Thyroid Problems N GI Problems N Eating Disorder N Anemia N Art (IVF or FET) N Psychiatric Illness N Ovarian Cancer N Diabetes Y Pulmonary (TB, Asthma) N Hepatitis/Liver Disease N No Past Medical History N Eczema N Urinary Tract Infection N Abuse/Domestic Violence N Asthma Y Trauma/Violence N Depression/ depression N Heart Disease N Pre-Eclampsia N Hypertension N Osteoporosis N Thrombophilias N Gynecological History Statement/Question Response Abnormal Pap N Flow Moderate Date of LMP 01/19/2025 On BCP's at Conception? N Was last menstrual period normal Y STIs/STDs Y HPV Vaccine Y Duration of Flow (days) 4 Current Control Method Sterilizati on Age at First Child 19 Are cycles usually normal Y Frequency of Cycle (Q days) 27 Sexually Active? Y Menses Monthly Y Age of first menstrual cycle 12 Date of Last Pap Smear 01/24/2024 Sexual Problems? N LMP Definite Obstetrics History GPAL:G 5 P 0 0 2 3 Type Value Spontaneous 2 Living 3 Total 5 Past Encounters Encounter ID Performer Location Encounter Start Date Encounter Closed Date Diagnosis/Indication Diagnosis SNOMED-CT Code Diagnosis ICD10 Code Diagnosis Note [id number] Nayely Howell , [facility] [address] [address] 01/24/2024 14:57:07 01/24/2024 16:38:48 Gynecologic examination 05028972 Z01.419 Take Calcium with Vitamin D 1200mg daily if not receiving in daily diet. It is strongly advised to have an annual flu shot and up can obtain at most pharmacies . If you have not had a TDap shot in the last 10 years you should obtain one as well. Discussed with patient & provided with informatio n regarding Gardisil vaccine to prevent the 4 strains for HPV that cause cervical cancer if under age 26. Encourage safe sexual practices, to use condoms and limit partners if not already in a monogamous relationsh ip. Do monthly self breast exams. Have mammogram yearly or every other year depending on family history. BRCA testing is now available for patients with strong genetic history of female cancer. If interested contact the office. Engage in daily exercise of low impact aerobic exercise 45-60 minutes 4-5 times weekly. Avoid tobacco and illicit drugs as well as using moderation with alcohol intake less than 1-2 8 oz beverages daily. This lifestyle behavior pattern will lead to less health conditions and longer life span. If BMI greater than 25 weight watchers or dietary consult advised. Patient received above instructio ns, and questions have been answered. If you have any questions please call or respond to this email. Patient was made aware of the patient portal and may obtain a paper copy of today's plan if desired. Pap/hpv sent STD Screen sent Genetic Screen discussed Colon Screen na Dexa Screen na Routine Labs ordered--i f abn needs a PCP to manage Adult heal th examination [id number] Z00.00 Vitamin D deficiency 347 75940 E55.9 Vaginitis 60233040 N76.0 SuspectBV/ Yeast on examPrevio usly on abx 1-2wks prior to this appt. Counseled on medication R/B's, Most common side effects, & use. All questions were answered to patient satisfacti on. Body mass index 40+ - severely obese 289110725 Z68.[address], Exercise/d iet changes; Medical management of weight loss Rx [id number] MARCELINA [facility] [address] [address] 03/21/2024 11:57:48 03/21/2024 15:47:00 Pain in pelvis 04703448 R10.2 Today we discussed that her sx's may be due to the BV found on exam.She will see how she feels with medicaton treatment; we sent std updated due to new partner.If sx's not resolved then a TVUS needs to be completed. Patient is to contact office or go to nearest ED/Urgent care if fever >/= 100.1, pain, excessive bleeding, unusual drainage or swelling in area of concern; or experienci ng worsening sx's or new onset of concerning sx's. Understand ing verbalized . All questions answered to patient satisfacti on. Vaginitis 56220195 N76.0 Suspect BV/Yeast on examDiscus sed treatment. Rx sentCall if sx's do not resolve; our next steps will be TVUS.Advis ed increase hydration. Counseled on medication R/B's, Most common side effects, & use. All questions were answered to patient satisfacti on. Time spent in visit is a total of 21 mins with at least 50% of visit consisting of counseling and review of plan of care. Contracept ion care management 326065571 Z30.9 Discuss BC options.Co ndoms given and is to reach out if would like to pursue another form of BC. [id number] KIERAN EUBANKS MD [facility] [address] [address] 08/02/2024 10:56:15 08/02/2024 14:45:53 Pain of left hip joint 5536127056 11813 M25.552 - patient reports pain deep in left hip joint- no evidence of COVERAGE SPECIALIST RN etiology based on pain location- recommend evaluation by PCP and PT [id number] Christiano Santiago MD [facility] [address] [address] 09/18/2024 14:49:03 09/19/2024 17:57:29 Cyst of ovary 81399646 N83.209 46-year-ol d female with 5 cm painful ovarian cyst. Patient would like laparoscop ic bilateral salpingo-o ophorectom y. Patient has had recurrent ovarian cysts and chronic pelvic pain. We discussed oophorecto my and the consequenc es. We discussed hormones. Discussed hormone replacemen t therapy we discussed the risks, benefits, and alternativ es to hormone placed today. We talked about the surgery. Talked about risk. Talked about laparoscop ic bilateral salpingo-o ophorectom y. The patient understand s the procedure. The procedure was described to the patient in great detail. the patient also understand s the risks. The risks were also explained in detail. She understand s that injuries May occur during surgery. She understand s these injuries can result in hospitaliz ation, more surgery, and severe illness. She understand s there is risk of hemorrhage and infection. Pain in pelvis 28387799 R10.2 [id number] Christiano Santiago MD [facility] [address] [address] 09/26/2024 10:21:30 09/27/2024 05:10:05 Postoperative care 125666468 Z48.89 This patient is a 34-year-ol d female presents for follow-up on surgery. She had a laparoscop ic resection of pelvic mass /cyst. Would I thought was a pelvic abscess was a thick walled ovarian cyst with endometrio sis. We dilated fallopian tube. A cystic mass complex that included tube and ovary. She feels much better. Her pain has resolved. She feels normal. The surgery was complicate d a lot of blood supply, scar tissue, she is recovering normally. Her incisions are clean dry and intact [id number] Christiano Santiago MD [facility] [address] [address] 11/27/2024 16:37:01 11/27/2024 17:47:41 Pain in pelvis 63279602 R10.2 this patient is a 34-year-ol d female who presents for pelvic pain. Patient had a large pelvic cyst previously . It was thought to be an abscess but turned out to be an endometrio sis lesion that was cystic and fluid containing . It was approximat karl 10 cm in the left side. She lost her ovary and tube on the left side during that surgery. Her pain has reoccurred . It is sharp crampy pain on the left side. It is intermitte nt. It lasts hours. It began 2 months ago. It is getting worse over time. She did have pain relief after the laparoscop ic surgery. To obtain pelvic ultrasound to discuss those results and consider a treatment plan. 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 She has concerns about her single free and her fertility. She would like to be excused from Radiation containing body scanning. I agreed to that. I spent more than 30 minutes on the patient's care in total [id number] Lyric Whitlock [facility] [address] [address] 11/28/2024 15:33:14 11/28/2024 16:36:52 Pain in pelvis [id number] R10.2 this patient is a 34-year-ol d female who presents for pelvic pain. Patient had a large pelvic cyst previously . It was thought to be an abscess but turned out to be an endometrio sis lesion that was cystic and fluid containing . It was approximat karl 10 cm in the left side. She lost her ovary and tube on the left side during that surgery. Her pain has reoccurred . It is sharp crampy pain on the left side. It is intermitte nt. It lasts hours. It began 2 months ago. It is getting worse over time. She did have pain relief after the laparoscop ic surgery. To obtain pelvic ultrasound to discuss those results and consider a treatment plan. 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 She has concerns about her single free and her fertility. She would like to be excused from Radiation containing body scanning. I agreed to that. I spent more than 30 minutes on the patient's care in total [id number] Christiano Santiago MD [facility] [address] [address] 11/29/2024 15:09:41 11/29/2024 16:37:43 Pain in pelvis [id number] R10.2 this patient is a 34-year-ol d female presents for follow-up on ultrasound . She previously had a left salpingo-o ophorectom y for large left ovarian cyst with inflammati on and endometrio sis. She has recurrence of her pain the left side. She had a ultrasound of the pelvis. There is a cystic structure in the left adnexa that appears to blood within it. We discussed treatment options in detail. We discussed observatio n. Polyp of the ultrasound . Talked about hormonal contracept ion as treatment for pelvic pain and endometrio sis and cysts. Talked about etiology, natural history, treatment of ovarian cyst. I spent over 20 minutes on her care in total. We agreed to follow-up and serial ultrasound . [id number] Alisia Jovel [facility] [address] [address] 01/27/2025 11:28:05 01/27/2025 12:15:43 Cyst of ovary [id number] N83.292 46-year-ol d female with 5 cm painful ovarian cyst. Patient would like laparoscop ic bilateral salpingo-o ophorectom y. Patient has had recurrent ovarian cysts and chronic pelvic pain. We discussed oophorecto my and the consequenc es. We discussed hormones. Discussed hormone replacemen t therapy we discussed the risks, benefits, and alternativ es to hormone placed today. We talked about the surgery. Talked about risk. Talked about laparoscop ic bilateral salpingo-o ophorectom y. The patient understand s the procedure. The procedure was described to the patient in great detail. the patient also understand s the risks. The risks were also explained in detail. She understand s that injuries May occur during surgery. She understand s these injuries can result in hospitaliz ation, more surgery, and severe illness. She understand s there is risk of hemorrhage and infection. [id number] Christiano Santiago MD [facility] [address] [address] 01/28/2025 10:51:17 01/28/2025 11:44:18 Pain in pelvis [id number] R10.2 This patient is a 34-year-ol d female with pelvic pain, hemorrhagi c ovarian cyst and scarring of the fallopian tube. We have agreed to perform laparoscop ic left ovarian cystectomy and chromotuba tion. She understand s risks, benefits, and alternativ es. She has completed the informed consent process and is ready to proceed. Hemorrhagi c cyst of ovary [id number] N83.209 Blocked fa llopian tube [id number] N97.1 Health Concerns Section Related Observation LastModified by Organization Detai ls LastModified Time None Recorded Concern Status LastModified by Organization Details LastModified Time None Recorded Advance Directives Directive None Recorded Payers Encounter Date Sequence Insurance Name Policy Number Policy Contreras Covered Member ID Contreras Member ID Guarantor Name 11/27/[address] [facility] ON OR AFTER 05/20/21 (MEDICAID REPLACEMENT - HMO) Judi Ambrocio [id number] Judi Ambrocio 11/28/[address] [facility] ON OR AFTER 05/20/21 (MEDICAID REPLACEMENT - HMO) Judi Ambrocio [id number] Judi Ambrocio 11/29/[address] [facility] ON OR AFTER 05/20/21 (MEDICAID REPLACEMENT - HMO) Judi Ambrocio [id number] Judi Ambrocio 01/27/[address] [facility] ON OR AFTER 05/20/21 (MEDICAID REPLACEMENT - HMO) Judi Ambrocio [id number] Judi Ambrocio 01/28/2025 1 [facility] ON OR AFTER 05/20/21 (MEDICAID REPLACEMENT - HMO) Judi Ambrocio [id number] Judi Ambrocio Notes Date Note Type Note Provider Name and Address Organization Details Recorded Time 11/27/2024 text/html this patient is a 34-year-old female who presents for pelvic pain. Patient had a large pelvic cyst previously. It was thought to be an abscess but turned out to be an endometriosis lesion that was cystic and fluid containing. It was approximately 10 cm in the left side. She lost her ovary and tube on the left side during that surgery. Her pain has reoccurred. It is sharp crampy pain on the left side. It is intermittent. It lasts hours. It began 2 months ago. It is getting worse over time. She did have pain relief after the laparoscopic surgery. To obtain pelvic ultrasound to discuss those results and consider a treatment plan. 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 She has concerns about her single free and her fertility. She would like to be excused from Radiation containing body scanning. I agreed to that. I spent more than 30 minutes on the patient's care in total Christiano Santiago MD [address], [place], [address], [facility] 11/27/2024 17:47:23 11/29/2024 text/html this patient is a 34-year-old female presents for follow-up on ultrasound. She previously had a left salpingo-oophorecto my for large left ovarian cyst with inflammation and endometriosis. She has recurrence of her pain the left side. She had a ultrasound of the pelvis. There is a cystic structure in the left adnexa that appears to blood within it. We discussed treatment options in detail. We discussed observation. Polyp of the ultrasound. Talked about hormonal contraception as treatment for pelvic pain and endometriosis and cysts. Talked about etiology, natural history, treatment of ovarian cyst. I spent over 20 minutes on her care in total. We agreed to follow-up and serial ultrasound. Christiano Santiago MD [address], [place], [address], [facility] 11/29/2024 16:03:39 01/28/2025 text/html This patient is a 34-year-old female with longstanding hemorrhagic cyst of the left ovary. I have concern about her fallopian tube status. We have agreed to perform laparoscopic left ovarian cystectomy and chromotubation. There was likely scoring of the fallopian tube. The patient understands the procedure. The procedure was described to the patient in great detail. the patient also understands the risks. The risks were also explained in detail. She understands that injuries May occur during surgery. She understands these injuries can result in hospitalization, more surgery, and severe illness. She understands there is risk of hemorrhage and infection. Christiano Santiago MD [address], [place], [address], [facility] 01/28/2025 11:42:38 OBGyn Episode Ob Episode Information Episode Created Date Number of Fetuses Patient Bloodtype Patient rh Status Prepregnancy Weight lbs Domestic Partner Domestic Partner Phone Father Name Magnetic Healer Status 01/18/20 24 1 CLOSED Fetus Data First Name Last Name Admitted to NICU Weight (g) Sex Living Outcome Pediatric Complications Fetus ID Race Codes Race Delivery Type 3061.74 6 M Full Term [id number] Vaginal Delivery Porfirio Calculation Initial Porfirio Date Initial Exam Date Initial Exam Provider Initial Ultrasound Date Last Menstrual Period Date Ultra Sound Weeks Gestation 0 Eighteen To Twenty Week Porfirio Update Ultra Sound Date Fundal Height At Umbil Quickening Date Ultra Sound Latest Weeks Gestation Final Porfirio Confirmed By Final Porfirio Confirmed Date Final Porfirio Date Ultra Sound Latest Days Gestation 0 0 Menstrual History Last Menstrual Date Menses Monthly On Bcp Conception Prior Menses Frequency Hcg Plus Date Menarche Onset Age Delivery Information Delivery Date Delivery Type Labor Anesthesia Weeks Gestation Incision Type Labor Labor Length Hrs Delivered By Post Complications Tubal Sterilization Discharge Date Comments 0 42 Discharge Information Feeding Method Contraceptive Method Maternal HG B and HCT Levels Ob Episode Information Episode Created Date Number of Fetuses Patient Bloodtype Patient rh Status Prepregnancy Weight lbs Domestic Partner Domestic Partner Phone Father Name Magnetic Healer Status 01/18/20 24 1 CLOSED Fetus Data First Name Last Name Admitted to NICU Weight (g) Sex Living Outcome Pediatric Complications Fetus ID Race Codes Race Delivery Type 3005.04 7 M Full Term [id number] Vaginal Delivery Porfirio Calculation Initial Porfirio Date Initial Exam Date Initial Exam Provider Initial Ultrasound Date Last Menstrual Period Date Ultra Sound Weeks Gestation 0 Eighteen To Twenty Week Porfirio Update Ultra Sound Date Fundal Height At Umbil Quickening Date Ultra Sound Latest Weeks Gestation Final Porfirio Confirmed By Final Porfirio Confirmed Date Final Porfirio Date Ultra Sound Latest Days Gestation 0 0 Menstrual History Last Menstrual Date Menses Monthly On Bcp Conception Prior Menses Frequency Hcg Plus Date Menarche Onset Age Delivery Information Delivery Date Delivery Type Labor Anesthesia Weeks Gestation Incision Type Labor Labor Length Hrs Delivered By Post Complications Tubal Sterilization Discharge Date Comments 3 39 Discharge Information Feeding Method Contraceptive Method Maternal HG B and HCT Levels Ob Episode Information Episode Created Date Number of Fetuses Patient Bloodtype Patient rh Status Prepregnancy Weight lbs Domestic Partner Domestic Partner Phone Father Name Magnetic Healer Status 01/24/20 24 1 CLOSED Fetus Data First Name Last Name Admitted to NICU Weight (g) Sex Living Outcome Pediatric Complications Fetus ID Race Codes Race Delivery Type , [place] [id number] Porfirio Calculation Initial Porfirio Date Initial Exam Date Initial Exam Provider Initial Ultrasound Date Last Menstrual Period Date Ultra Sound Weeks Gestation 0 Eighteen To Twenty Week Porfirio Update Ultra Sound Date Fundal Height At Umbil Quickening Date Ultra Sound Latest Weeks Gestation Final Porfirio Confirmed By Final Porfirio Confirmed Date Final Porfirio Date Ultra Sound Latest Days Gestation 0 0 Menstrual History Last Menstrual Date Menses Monthly On Bcp Conception Prior Menses Frequency Hcg Plus Date Menarche Onset Age Delivery Information Delivery Date Delivery Type Labor Anesthesia Weeks Gestation Incision Type Labor Labor Length Hrs Delivered By Post Complications Tubal Sterilization Discharge Date Comments 2 Discharge Information Feeding Method Contraceptive Method Maternal HG B and HCT Levels Ob Episode Information Episode Created Date Number of Fetuses Patient Bloodtype Patient rh Status Prepregnancy Weight lbs Domestic Partner Domestic Partner Phone Father Name Magnetic Healer Status 01/24/20 24 1 CLOSED Fetus Data First Name Last Name Admitted to NICU Weight (g) Sex Living Outcome Pediatric Complications Fetus ID Race Codes Race Delivery Type , [place] [id number] Porfirio Calculation Initial Porfirio Date Initial Exam Date Initial Exam Provider Initial Ultrasound Date Last Menstrual Period Date Ultra Sound Weeks Gestation 0 Eighteen To Twenty Week Porfirio Update Ultra Sound Date Fundal Height At Umbil Quickening Date Ultra Sound Latest Weeks Gestation Final Porfirio Confirmed By Final Porfirio Confirmed Date Final Porfirio Date Ultra Sound Latest Days Gestation 0 0 Menstrual History Last Menstrual Date Menses Monthly On Bcp Conception Prior Menses Frequency Hcg Plus Date Menarche Onset Age Delivery Information Delivery Date Delivery Type Labor Anesthesia Weeks Gestation Incision Type Labor Labor Length Hrs Delivered By Post Complications Tubal Sterilization Discharge Date Comments 9 Discharge Information Feeding Method Contraceptive Method Maternal HG B and HCT Levels Ob Episode Information Episode Created Date Number of Fetuses Patient Bloodtype Patient rh Status Prepregnancy Weight lbs Domestic Partner Domestic Partner Phone Father Name Magnetic Healer Status 01/18/20 24 1 CLOSED Fetus Data First Name Last Name Admitted to NICU Weight (g) Sex Living Outcome Pediatric Complications Fetus ID Race Codes Race Delivery Type 3288.54 2 M Full Term [id number] Vaginal Delivery Porfirio Calculation Initial Porfirio Date Initial Exam Date Initial Exam Provider Initial Ultrasound Date Last Menstrual Period Date Ultra Sound Weeks Gestation 0 Eighteen To Twenty Week Porfirio Update Ultra Sound Date Fundal Height At Umbil Quickening Date Ultra Sound Latest Weeks Gestation Final Porfirio Confirmed By Final Porfirio Confirmed Date Final Porfirio Date Ultra Sound Latest Days Gestation 0 0 Menstrual History Last Menstrual Date Menses Monthly On Bcp Conception Prior Menses Frequency Hcg Plus Date Menarche Onset Age Delivery Information Delivery Date Delivery Type Labor Anesthesia Weeks Gestation Incision Type Labor Labor Length Hrs Delivered By Post Complications Tubal Sterilization Discharge Date Comments 5 39 Discharge Information Feeding Method Contraceptive Method Maternal HG B and HCT Levels
--- OUTSIDE RECORDS SUMMARY | 2025-02-18 14:32 | XMS_ITS | Data Portability ---
Author Organization LONNY Lucy HERNANDEZ Address [address] [facility] [place] [address] Care Team Providers Care Senior Accounting Specialist Name Role Phone APRIL CUELLAR Primary Care Provider Assessment No assessment recorded. Plan of Treatment Reminders Order Date Submit Date Provider Last Modified By Organization Details Last Modified Time Details Appointments None recorded. Lab HbA1c (hemoglobi n A1c), blood 2023 024 [facility], [address] [place] [address], [facility] [address], [place], [address], 4 15:11:57 CBC 2023 024 [facility], [address] [place] [address], [facility] [address], [place], [address], 4 06:19:20 CMP, serum or plasma 2023 024 [facility], [address] [place] [address], [facility] [address], [place], [address], 4 06:19:19 hemoglobin (Hb) electropho resis, blood 2023 024 [facility], [address] [place] [address], [facility] [address], [place], [address], 4 15:11:56 thiamine, QN, blood 2023 024 [facility], [address], [address], [place], [address], 4 17:09:20 iron + TIBC + ferritin, serum 2023 024 [facility], [address], [address], [place], [address], 4 15:11:59 vaginal pathogens panel, MARGARET+probe, vaginal fluid 2022 023 [facility], [address] [facility] [address], [place], [address], 3 20:08:36 treponema pallidum IgG + IgM Ab, QL, IA, serum 2022 023 [facility], [address], [place], [address], 3 20:08:37 HBsAg (hepatitis B surface Ag), EIA, serum 2022 023 [facility], [address], [place], [address], 3 20:08:37 Hepatitis C IgG Ab, qual, serum 2022 023 [facility], [address], [place], [address], 3 20:08:35 HIV 1 + 2, meaningful use set 2022 023 [facility], [address], [place], [address], 3 20:08:38 Referral weight management referral - Desires weight loss management 2023 024 [facility], [address] [place] [address], [address], 4 15:38:12 behavioral health referral 2023 024 yunior Sotelo (), [address] [place], [address], 5 17:26:13 Procedures None recorded. Surgeries None recorded. Imaging None recorded. Medication Orders fluticason e propionate 50 mcg/actuat ion nasal spray,susp ension 2022 023 [id number], [address] [place], [place], [id number], 3 10:52:14 montelukas t 10 mg tablet 2022 023 [id number], [address] [place], [place], [id number], 3 10:52:13 Patient TargetsNo targets recorded. Patient Instructions Encounter Date Encounter Id Patient Instructions Last Modified By Organization Details Last Modified Time 07/13/2023 [id number] safer sex: care instructions [email or web address] Not available 07/13/2023 09:47:08 04/11/2024 [id number] chest pain: care instructions [email or web address] Not available 04/11/2024 11:49:18 A healthy lifestyle: care instructions [email or web address] Not available 04/11/2024 11:45:30 anemia: care instructions [email or web address] Not available 04/11/2024 11:45:30 08/12/2024 [id number] body mass index: care instructions [email or web address] Not available 08/12/2024 11:16:52 learning about healthy weight [email or web address] Not available 08/12/2024 11:16:52 Reason for Referral Behavioral Health Referral f or Feeling stressed Referring Physician: April Cuellar, Internal Medicine, Encounter Date: 04/11/2024 Weight Management Referral f or Body mass index 40+ - severely obese [facility] weight loss management [facility] weight loss management Referring Physician: April Cuellar, Internal Medicine, Encounter Date: 08/12/2024 Results Created Date Observation Date Name Description Value Unit Range Abnormal Flag Note LastModifiedBy Organization Detail LastModifiedTime 07/13/2007/14/2023 HCV ANTIB CARRIE RFX TO QUANT PCR HCV Ab Non Reacti ve nonrea ctive Not Available [facility] ([facility]) [address] [facility], [place], [address], 07/15/2023 20:08:35 07/13/20 23 07/15/2023 NUSWA B VAGIN ITIS PLUS (VG+) atopobium vaginae Modera te - 1 score Not Available [facility] ([facility]) [address] [facility], [place], [address], 07/15/2023 20:08:36 07/13/20 23 07/15/2023 NUSWA B VAGIN ITIS PLUS (VG+) bvab 2 High - 2 score abnormal Not Available [facility] ([facility]) [address] [facility], [place], [address], 07/15/2023 20:08:36 07/13/20 23 07/15/2023 NUSWA B VAGIN ITIS PLUS (VG+) megasphaera 1 Low - 0 score Calcu late total score by sebastian delacruz the 3 indiv idual bacte rial vagin osis (BV) marke r score s toget her. Total score is inter prete d as follo ws: Total score 0-1: Indic ates the absen ce of BV. Total score 2: Indet ermin ate for BV. Addit ional clini wing data shoul d be evalu ated to estab dontae a diagn osis. Total score 3-6: Indic ates the prese nce of BV. This test was devel oped and its perfo rmanc e xiomara cteri stics deter mined by [facility]. It has not been clear ed or appro thi by the Food and Drug Admin istra tion. Not Available [facility] ([facility]) [address] [facility], [place], [address], 07/15/2023 20:08:36 07/13/20 23 07/15/2023 NUSWA B VAGIN ITIS PLUS (VG+) javad albicans, MARGARET Negati ve negati ve Not Available [facility] ([facility]) [address] [facility], [place], [address], 07/15/2023 20:08:36 07/13/20 23 07/15/2023 NUSWA B VAGIN ITIS PLUS (VG+) javad glabrata, MARGARET Negati ve negati ve Not Available [facility] ([facility]) [address] [facility], [place], [address], 07/15/2023 20:08:36 07/13/20 23 07/15/2023 NUSWA B VAGIN ITIS PLUS (VG+) trich vag by MARGARET Positi ve negati ve abnormal Not Available [facility] ([facility]) [address] [facility], [place], [address], 07/15/2023 20:08:36 07/13/20 23 07/15/2023 NUSWA B VAGIN ITIS PLUS (VG+) chlamydia trachomatis, MARGARET Negati ve negati ve Not Available [facility] ([facility]) [address] [facility], [place], [address], 07/15/2023 20:08:36 07/13/20 23 07/15/2023 NUSWA B VAGIN ITIS PLUS (VG+) neisseria gonorrhoeae, MARGARET Negati ve negati ve Not Available [facility] ([facility]) [address] [place], [address], 07/15/2023 20:08:36 07/13/20 23 07/14/2023 HBSAG SCREE N HBsAg screen Negati ve negati ve Not Available [facility] ([facility]) [address] [place], [address], 07/15/2023 20:08:36 07/13/20 23 07/14/2023 T PALLI DUM SCREE GIANA CASCA DE T pallidum antibodies Non Reacti ve nonrea ctive Not Available [facility] ([facility]) [address] [facility], [place], [address], 07/15/2023 20:08:37 07/13/20 23 07/14/2023 HIV AB/P2 4 AG WITH REFLE X HIV Ab/P24 Ag screen Non Reacti ve nonrea ctive HIV Negat yazmin HIV-1 /HIV- 2 antib odies and HIV-1 p24 antig en were NOT detec leela. There is no labor atory evide nce of HIV infec tion. Not Available [facility] ([facility]) [address] [facility], [place], [address], 07/15/2023 20:08:37 07/13/20 23 07/14/2023 INTER PRETA TION: interpretati on: Commen t Not infec leela with HCV unles s early or acute infec tion is suspe cted (whic h may be delay ed in an immun ocomp romis ed indiv idual ), or other evide nce exist s to indic ate HCV infec tion. Not Available [facility] ([facility]) [address] [facility], [place], [address], 07/15/2023 20:08:35 04/11/20 24 04/12/2024 COMP. METAB OLIC PANEL (14) glucose 85 mg/dL 70-99 Not Available [facility] ([facility]) [address] [place], [address], 04/12/2024 06:19:18 04/11/20 24 04/12/2024 COMP. METAB OLIC PANEL (14) BUN 8 mg/dL 6-20 Not Available [facility] ([facility]) [address] [place], [address], 04/12/2024 06:19:18 04/11/20 24 04/12/2024 COMP. METAB OLIC PANEL (14) creatinine 0.94 mg/dL 0.57-1 .00 Not Available [facility] ([facility]) [address] [facility] [place], [address], 04/12/2024 06:19:18 04/11/20 24 04/12/2024 COMP. METAB OLIC PANEL (14) eGFR 82 mL/mi n/1.7 3 >59 Not Available [facility] ([facility]) [address] [facility], [place], [address], 04/12/2024 06:19:18 04/11/20 24 04/12/2024 COMP. METAB OLIC PANEL (14) BUN/creatini ne ratio 9 9-23 Not Available [facility] ([facility]) [address] [facility], [place], [address], 04/12/2024 06:19:18 04/11/20 24 04/12/2024 COMP. METAB OLIC PANEL (14) sodium 138 mmol/ L 134-14 4 Not Available [facility] ([facility]) [address] [place], [address], 04/12/2024 06:19:18 04/11/20 24 04/12/2024 COMP. METAB OLIC PANEL (14) potassium 4.3 mmol/ L 3.5-5. 2 Not Available [facility] ([facility]) [address] [place], [address], 04/12/2024 06:19:18 04/11/20 24 04/12/2024 COMP. METAB OLIC PANEL (14) chloride 104 mmol/ L 96-106 Not Available [facility] ([facility]) [address] [place], [address], 04/12/2024 06:19:18 04/11/20 24 04/12/2024 COMP. METAB OLIC PANEL (14) carbon dioxide, total 24 mmol/ L 20-29 Not Available [facility] ([facility]) [address] [facility] [place], [address], 04/12/2024 06:19:18 04/11/20 24 04/12/2024 COMP. METAB OLIC PANEL (14) calcium 9.0 mg/dL 8.7-10 .2 Not Available [facility] ([facility]) [address] [facility], [place], [address], 04/12/2024 06:19:18 04/11/20 24 04/12/2024 COMP. METAB OLIC PANEL (14) protein, total 7.0 g/dL 6.0-8. 5 Not Available [facility] ([facility]) [address] [facility] [place], [address], 04/12/2024 06:19:18 04/11/20 24 04/12/2024 COMP. METAB OLIC PANEL (14) albumin 3.8 g/dL 3.9-4. 9 below low normal Not Available [facility] ([facility]) [address] [facility] [place], [address], 04/12/2024 06:19:18 04/11/20 24 04/12/2024 COMP. METAB OLIC PANEL (14) globulin, total 3.2 g/dL 1.5-4. 5 Not Available [facility] ([facility]) [address] [facility] [place], [address], 04/12/2024 06:19:18 04/11/2004/12/2024 COMP. METAB OLIC PANEL (14) A/G ratio 1.2 1.2-2. 2 Not Available [facility] ([facility]) [address] [facility] [place], [address], 04/12/2024 06:19:18 04/11/20 24 04/12/2024 COMP. METAB OLIC PANEL (14) bilirubin, total 0.3 mg/dL 0.0-1. 2 Not Available [facility] ([facility]) [address] [facility], [place], [address], 04/12/2024 06:19:18 04/11/20 24 04/12/2024 COMP. METAB OLIC PANEL (14) alkaline phosphatase 63 IU/L 44-121 Not Available [facility] ([facility]) [address] [facility], [place], [address], 04/12/2024 06:19:18 04/11/20 24 04/12/2024 COMP. METAB OLIC PANEL (14) AST (SGOT) 17 IU/L 0-40 Not Available [facility] ([facility]) [address] [facility], [place], [address], 04/12/2024 06:19:18 04/11/20 24 04/12/2024 COMP. METAB OLIC PANEL (14) ALT (SGPT) 15 IU/L 0-32 Not Available [facility] ([facility]) [address] [facility], [place], [address], 04/12/2024 06:19:18 04/11/2004/12/2024 CBC, PLATE LET, NO DIFFE RENTI AL WBC 6.5 x10e3 /uL 3.4-10 .8 Not Available [facility] ([facility]) [address] [facility], [place], [address], 04/12/2024 06:19:20 04/11/2004/12/2024 CBC, PLATE LET, NO DIFFE RENTI AL RBC 4.31 x10e6 /uL 3.77-5 .28 Not Available [facility] ([facility]) [address] [facility], [place], [address], 04/12/2024 06:19:20 04/11/20 24 04/12/2024 CBC, PLATE LET, NO DIFFE RENTI AL hemoglobin 11.4 g/dL 11.1-1 5.9 Not Available [facility] ([facility]) [address] [place], [address], 04/12/2024 06:19:20 04/11/2004/12/2024 CBC, PLATE LET, NO DIFFE RENTI AL hematocrit 36.1 % 34.0-4 6.6 Not Available [facility] ([facility]) [address] [place], [address], 04/12/2024 06:19:20 04/11/2004/12/2024 CBC, PLATE LET, NO DIFFE RENTI AL MCV 84 fL 79-97 Not Available [facility] ([facility]) [address] [place], [address], 04/12/2024 06:19:20 04/11/2004/12/2024 CBC, PLATE LET, NO DIFFE RENTI AL MCH 26.5 pg 26.6-3 3.0 below low normal Not Available [facility] ([facility]) [address] [place], [address], 04/12/2024 06:19:20 04/11/2004/12/2024 CBC, PLATE LET, NO DIFFE RENTI AL MCHC 31.6 g/dL 31.5-3 5.7 Not Available [facility] ([facility]) [address] [place], [address], 04/12/2024 06:19:20 04/11/2004/12/2024 CBC, PLATE LET, NO DIFFE RENTI AL RDW 15.5 % 11.7-1 5.4 above high normal Not Available [facility] ([facility]) [address] [place], [address], 04/12/2024 06:19:20 04/11/2004/12/2024 CBC, PLATE LET, NO DIFFE RENTI AL platelets 309 x10e3 /uL 150-45 0 Not Available [facility] ([facility]) [address] [place], [address], 04/12/2024 06:19:20 04/11/20 24 04/12/2024 HGB FRACT IONAT ION CASCA DE HGB F 0.0 % 0.0-2. 0 Not Available [facility] ([facility]) [address] [place], [address], 04/12/2024 15:11:56 04/11/20 24 04/12/2024 HGB FRACT IONAT ION CASCA DE HGB A 97.7 % 96.4-9 8.8 Not Available [facility] ([facility]) [address] [place], [address], 04/12/2024 15:11:56 04/11/20 24 04/12/2024 HGB FRACT IONAT ION CASCA DE HGB A2 2.3 % 1.8-3. 2 Not Available [facility] ([facility]) [address] [facility], [place], [address], 04/12/2024 15:11:56 04/11/20 24 04/12/2024 HGB FRACT IONAT ION CASCA DE HGB S 0.0 % 0.0 Not Available [facility] ([facility]) [address] [place], [address], 04/12/2024 15:11:56 04/11/2004/12/2024 HGB FRACT IONAT ION CASCA DE interpretati on: COMMEN T Shasha l hemog lobin prese nt; no hemog lobin varia nt or beta thala ssemi a ident ified . Note: Alpha thala ssemi a may not be detec leela by the Hgb Fract ionat ion [place] de panel . If alpha thala ssemi a is suspe cted, [facility] offer s Alpha -Thal assem ia DNA Amy sis (#[id number]). Not Available [facility] ([facility]) [address] [place], [address], 04/12/2024 15:11:56 04/11/20 24 04/12/2024 HEMOG LOBIN A1C hemoglobin A1C 5.7 % 4.8-5. 6 above high normal Predi abete s: 5.7 - 6.4 Diabe josesito: >6.4 Glyce bruce contr ol for adult s with diabe josesito: <7.0 Not Available [facility] ([facility]) [address] [place], [address], 04/12/2024 15:11:57 04/11/20 24 04/12/2024 FE+TI BC+FE R iron bind.cap.(TI BC) 291 ug/dL 250-45 0 Not Available [facility] ([facility]) [address] [place], [address], 04/12/2024 15:11:59 04/11/20 24 04/12/2024 FE+TI BC+FE R UIBC 255 ug/dL 131-42 5 Not Available [facility] ([facility]) [address] [place], [address], 04/12/2024 15:11:59 04/11/20 24 04/12/2024 FE+TI BC+FE R iron 36 ug/dL 27-159 Not Available [facility] ([facility]) [address] [place], [address], 04/12/2024 15:11:59 04/11/20 24 04/12/2024 FE+TI BC+FE R iron saturation 12 % 15-55 below low normal Not Available [facility] ([facility]) [address] [place], [address], 04/12/2024 15:11:59 04/11/20 24 04/12/2024 FE+TI BC+FE R ferritin 16 NG/mL 15-150 Not Available [facility] ([facility]) [address] [place], [address], 04/12/2024 15:11:59 04/11/20 24 04/16/2024 VITAM IN B1 (THIA MINE) , BLOOD vit. B1, whole blood 84.9 nmol/ L 66.5-2 00.0 Not Available [facility] ([facility]) [address] [facility], [place], [address], 04/16/2024 17:09:20 06/02/2003/21/2023 CT, head, w/o contr ast No observ ation record ed. [facility] ([facility]) [address], [place], [address], 06/02/2023 22:07:40 Result Notes None recorded. Problems Name Problem SNOMED Code Status Onset Date Resolution Date Notes Provider Name and Address Organization Details Recorded Time Body mass index 40+ - severely obese 306268452 Active 2017 Not Available [facility] 2 15:08:15 Intermitt ent palpitati ons 478214946 Active 2017 Not Available [facility] 2 15:08:15 Vitamin D deficienc y 36528190 Active 2019 Not Available [facility] 2 15:08:16 Thyroid stimulati ng hormone level below reference range 497216580 Active 2019 Not Available [facility] 2 15:08:16 Prediabet es 356768494 Active 2019 Not Available [facility] 2 15:08:16 Anemia 734458446 Active 2022 KEMAL KAUR Attn: Accounting ,[address] [facility], [place], [address] , [place] [facility] 3 11:39:07 Feeling stressed 712007378 Active 2023 April Cuellar MD Attn: Accounting ,[address] [facility], [place], [address] , [place] [facility] 4 11:42:12 Chest pain 87773175 Active 2023 April Cuellar MD Attn: Accounting ,[address] [facility], [place], [address] , [place] [facility] 4 11:49:00 Pain of left hip joint 64979720196 9100 Active 2023 April Cuellar MD Attn: Accounting ,[address] [facility], [place], [address] , [place] [facility] 4 11:12:12 Pain in left foot 87597657639 9107 Active 2023 April Cuellar MD Attn: Accounting ,[address] [facility], [place], [address] , [place] - [facility] 4 11:13:09 Bacterial vaginosis 272556649 Completed 08/20/2019 KEMAL AMARO Attn: Accounting ,[address] [place], [address] , [place] - [facility] 9 11:03:06 Morbid obesity 635393007 Completed 04/10/2018 Milagro Hawkins PA-C Attn: Accounting ,[address] [place], [address] , [place] - [facility] 8 13:13:40 Knee pain Completed 11/07/2018 Micah rinaldi [place] - [facility] 8 15:08:34 Problem Notes None recorded. Procedures Surgical History Date Name Laterality Status Provider Name and Address Organization Details Recorded Time 2 Date of Last Pap Smear completed Alia Bernabe [place] [facility] 08/24/2022 08:57:47 5 Control Implant Removal completed Micah Gutierrez [place] - [facility] 07/14/2015 11:51:02 Imaging Results Imaging Date Name Status [facility] Details LastModified Time 03/21/2023 CT, head, w/o contrast completed [facility] ([facility]) [address], [place], [address], 06/02/2023 22:07:40 Procedure Notes None recorded. Medical Equipment None Reported. Allergies Allergen ID Allergen Name Allergen Category Reaction Reaction Severity Criticality Documentation Date Start Date Code Code System Note Provider Name and Address Organization Details Recorded Time 231815 ibuprofen medicatio n Not available Not available Not available 04/11/2024 5640 RxNorm Not Available Not Available Not Available Medications Name Sig Start Date Stop Date Status Note LastModified by Organization Details LastModified Time multivita min tablet Take 1 tablet every day by oral route. 08/20 completed Not Available Not Available Not Available cyclobenz aprine 10 mg tablet TAKE 1 TABLET BY MOUTH EVERY 8 HOURS NEEDED 08/12 completed Not Available Not Available Not Available amoxicill in 500 mg capsule 10/22 completed Not Available Not Available Not Available metformin 500 mg tablet TAKE 1 TABLET BY MOUTH TWICE DAILY 04/11 completed Not Available Not Available Not Available bupropion HCl SR 150 mg tablet,12 hr sustained -release Take 1 tablet twice a day by oral route. 11/07 completed Not Available Not Available Not Available Vitamin C 500 mg tablet TAKE 1/2 TABLET BY MOUTH ONCE DAILY. TAKE WITH IRON TABLET active Not Available Not Available No t Available trazodone 50 mg tablet TAKE 1 TABLET BY MOUTH NEEDED FOR SLEEP STUDY 04/11 completed Not Available Not Available Not Available cetirizin e 10 mg tablet TAKE 1 TABLET BY MOUTH EVERY DAY 2023 active Not Available Not Available Not Avai lable ibuprofen 800 mg tablet TAKE 1 TABLET BY MOUTH THREE TIMES DAILY NEEDED 04/11 completed Not Available Not Available Not Available ofloxacin 0.3 % eye drops 11/07 completed Not Available Not Available Not Available fluconazo le 150 mg tablet Take 1 tablet by oral route. 11/07 completed Not Available Not Available Not Available hydrocodo ne 5 mg-acetam inophen 325 mg tablet TAKE 1 TABLET BY MOUTH EVERY 6 HOURS FOR 3 DAYS NEEDED FOR PAIN active Not Available Not Available No t Available fluconazo le 200 mg tablet 04/11 completed Not Available Not Available Not Available naltrexon e 50 mg tablet Take 0.5 tablets twice a day by oral route. 11/07 completed Not Available Not Available Not Available sertralin e 100 mg tablet Take 1 tablet every day by oral route. 08/20 completed Not Available Not Available Not Available topiramat e 25 mg tablet TAKE 1 TABLET BY MOUTH EVERY DAY 04/11 completed Not Available Not Available Not Available metronida zole 500 mg tablet TAKE 1 TABLET BY MOUTH EVERY 12 HOURS active Not Available Not Available No t Available acetamino phen 500 mg tablet TAKE 2 TABLETS BY MOUTH EVERY 6 HOURS NEEDED FOR PAIN OR FEVER active Not Available Not Available No t Available acyclovir 800 mg tablet Take 1 tablet every day by oral route as directed for 30 days. 08/20 completed Not Available Not Available Not Available meloxicam 7.5 mg tablet 09/08 completed Not Available Not Available Not Available amoxicill in 875 mg tablet 10/22 completed Not Available Not Available Not Available methocarb elgin 750 mg tablet TAKE 2 TABLETS BY MOUTH THREE TIMES DAILY active Not Available Not Available No t Available cephalexi n 500 mg capsule TAKE 1 CAPSULE BY MOUTH EVERY 12 HOURS FOR 7 DAYS active Not Available Not Available No t Available oseltamiv ir 75 mg capsule TAKE 1 CAPSULE BY MOUTH TWICE DAILY FOR 5 DAYS 11/03 completed Not Available Not Available Not Available prednison e 50 mg tablet 04/10 completed Not Available Not Available Not Available lidocaine 5 % topical patch active Not Available Not Available Not Available omeprazol e 20 mg capsule,d elayed release TAKE 1 CAPSULE BY MOUTH EVERY DAY IN THE MORNING 05/20 completed Not Available Not Available Not Available [...] MOUTH EVERY 6 HOURS WITH FOOD NEEDED 04/11 completed Not Available Not Available Not Available albuterol sulfate HFA 90 mcg/actua tion aerosol inhaler INHALE 1 PUFF EVERY 4 HOURS NEEDED FOR SHORTNES S OF BREATH OR WHEEZING active Not Available Not Available No t Available cefdinir 300 mg capsule TAKE 1 CAPSULE BY MOUTH EVERY 12 HOURS 04/11 completed Not Available Not Available Not Available fluticaso ne propionat e 50 mcg/actua tion nasal spray,kaushal pension SHAKE LIQUID AND USE 2 SPRAYS IN EACH NOSTRIL EVERY DAY active Not Available Not Available No t Available ParaGard T 380A 380 square mm intrauter ine device Take 1 device by intraute rine route. 04/10 completed Not Available Not Available Not Available doxycycli ne hyclate 100 mg tablet TAKE 1 TABLET BY MOUTH EVERY 12 HOURS active Not Available Not Available No t Available loratadin e 10 mg tablet 04/10 completed Not Available Not Available Not Available amoxicill in 875 mg-potass ium clavulana te 125 mg tablet TAKE 1 TABLET BY MOUTH TWICE DAILY FOR 7 DAYS active Not Available Not Available No t Available amoxicill in 500 mg-potass ium clavulana te 125 mg tablet TAKE 1 TABLET BY MOUTH EVERY 12 HOURS UNTIL FINISHED 10/22 completed Not Available Not Available Not Available cyclobenz aprine 5 mg tablet TAKE 1 TABLET BY MOUTH TWICE DAILY NEEDED 08/12 completed Not Available Not Available Not Available nitrofura ntoin monohydra te/macroc rystals 100 mg capsule TAKE 1 CAPSULE BY MOUTH TWICE DAILY FOR 5 DAYS 04/11 completed Not Available Not Available Not Available duloxetin e 30 mg capsule,d elayed release TAKE 1 CAPSULE BY MOUTH DAILY WITH THE EVENING MEAL active Not Available Not Available No t Available Oysco 500/D 500 mg-5 mcg (200 unit) tablet 11/07 completed Not Available Not Available Not Available FeroSul 325 mg (65 mg iron) tablet TAKE 1 TABLET BY MOUTH TWICE DAILY active Not Available Not Available No t Available Calcium with Vitamin D 600 mg-10 mcg (400 unit) tablet Take 1 tablet twice a day by oral route. 08/20 completed Not Available Not Available Not Available Lo Loestrin Fe 1 mg-10 mcg (24)/10 mcg (2) tablet Take 1 tablet every day by oral route. 09/08 completed Dispense Qty: 3. Not Available Not Available Not Available calcium 600 mg (as carbonate )-vitamin D3 20 mcg (800 unit) tablet Take 1 tablet twice a day by oral route. 08/20 completed Not Available Not Available Not Available Aurovela Fe 1-20 (28) 1 mg-20 mcg (21)/75 mg (7) tablet TAKE 1 TABLET BY MOUTH EVERY DAY 12/02 completed Not Available Not Available Not Available Slynd 4 mg (28) tablet TAKE 1 TABLET BY MOUTH EVERY DAY 02/07 completed Not Available Not Available Not Available COVID-19 test specimen collectio n TEST DIRECTED 10/22 completed Not Available Not Available Not Available Vitals Date Recorded Body height Body mass index (BMI) Body weight Heart rate Respiratory rate Body temperature Systolic blood pressure Diastolic blood pressure Provider Name and Address Organization Details Last Updated DateTime 3 165.1 cm 50.6 kg/m2 334635. 08 g 66 /min 18 /min 98 [degF] 116 mm[Hg] 68 mm[Hg] Killian Camilo LPN [facility] 3 10:40:55 Date Recorded Body height Body mass index (BMI) Body weight Systolic blood pressure Diastolic blood pressure Provider Name and Address Organization Details Last Updated DateTime 07/13/2023 165.1 cm 50.8 kg/m2 632082.6 7 g 112 mm[Hg] 68 mm[Hg] Antonieta davis MA [facility] 3 09:34:48 Date Recorded Body height Body mass index (BMI) Body weight Oxygen saturation Oxygen saturation in Arterial blood by Pulse oximetry Heart rate Systolic blood pressure Diastolic blood pressure Provider Name and Address Organization Details Last Updated DateTime 4 165.1 cm 49.9 kg/m2 899003. 71 g 98 % 98 % 69 /min 106 mm[Hg] 74 mm[Hg] Mayra Mejia MA [facility] 4 11:20:43 Date Recorded Body height Body mass index (BMI) Body weight Heart rate Oxygen saturation Oxygen saturation in Arterial blood by Pulse oximetry Systolic blood pressure Diastolic blood pressure Provider Name and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 lidocaine patch. Still having problems with weight loss April Cuellar MD Attn: [address] [place], [address], [facility] 08/12/2024 11:19:17 08/21/2024 text/html Here because of accommadations that would be needed for work April Cuellar MD Attn: [address] [place], [address], [facility] 08/21/2024 16:21:01 OBGyn Episode Ob Episode Information Episode Created Date Number of Fetuses Patient Bloodtype Patient rh Status Prepregnancy Weight lbs Domestic Partner Domestic Partner Phone Father Name Nuclear Scientist Status 07/14/20 15 1 CLOSED Fetus Data First Name Last Name Admitted to NICU Weight (g) Sex Living Outcome Pediatric Complications Fetus ID Race Codes Race Delivery Type 3033.39 65 M Full Term 80183 Vaginal Porfirio Calculation Initial Porfirio Date Initial Exam [...] Complications Tubal Sterilization Discharge Date Comments 3 [facility]- idural 40 Discharge Information Feeding Method Contraceptive Method Maternal HG B and HCT Levels Ob Episode Information Episode Created Date Number of Fetuses Patient Bloodtype Patient rh Status Prepregnancy Weight lbs Domestic Partner Domestic Partner Phone Father Name Nuclear Scientist Status 07/14/20 15 1 CLOSED Fetus Data First Name Last Name Admitted to NICU Weight (g) Sex Living Outcome Pediatric Complications Fetus ID Race Codes Race Delivery Type 3061.74 6 M Full Term 45050 Vaginal Porfirio Calculation Initial Porfirio Date Initial Exam [...] Complications Tubal Sterilization Discharge Date Comments 0 [facility] idural 40 Discharge Information Feeding Method Contraceptive Method Maternal HG B and HCT Levels Ob Episode Information Episode Created Date Number of Fetuses Patient Bloodtype Patient rh Status Prepregnancy Weight lbs Domestic Partner Domestic Partner Phone Father Name Nuclear Scientist Status 07/14/20 15 1 CLOSED Fetus Data First Name Last Name Admitted to NICU Weight (g) Sex Living Outcome Pediatric Complications Fetus ID Race Codes Race Delivery Type 3288.54 2 M Full Term 63007 Vaginal Porfirio Calculation Initial Porfirio Date Initial Exam [...] Complications Tubal Sterilization Discharge Date Comments 5 [facility] idural 40 Discharge Information Feeding Method Contraceptive Method Maternal HG B and HCT Levels
--- OUTSIDE RECORDS SUMMARY | 2025-02-18 14:32 | XMS_ITS | Clinical Summary ---
Author Organization [facility] Address [address] [place] [address] Care Team Providers Care Insulation Worker Apprentice Name Role Phone Unknown, Provider Primary Care Provider Unavaila ble Source Comments [facility],non-owned Affiliates and Associated Physician Practices is amultiple site organization consisting of ambulatory clinics and hospital sitesin [place], [place], [place] and [place]. This disclosure is being madepursuant to the Care Everywhere program and may not contain all information available regarding this patient. Last updated 18.[facility] Allergies Active Allergy Reactions Criticality Noted Date Comments Ketorolac Swelling 08/08/2024 Facial swelling Medications * Be aware that medications may not be up to date on this document. Alwaysverify current medications with the patient. Medication Sig Dispensed Refills Start Date End Date Status ibuprofen (Motrin) 400 MG tablet Take 1 (one) tablet by mouth every 6 hours as needed for Pain Active methocarbamol (Robaxin) 750 MG tablet Take 1 (one) tablet by mouth every 6 hours as needed for Muscle Spasms 15 tablet 08/08/2024 Active lidocaine (Lidoderm) 5 % patch Apply 1 (one) patch to skin once daily Apply patch to most painful area and remove after 12 hours. May reapply a new patch 12 hours later. 5 patch 08/08/2024 Active Active Problems Problem Noted Date Diagnosed Date Obesity 08/08/2024 Left hip pain 08/08/2024 Social History Tobacco Use Types Packs/Day Years Used Date Smoking Tobacco: Never Smokeless Tobacco: Never Sex and Gender Information Value Date Recorded Sex Assigned at Not on file Gender Identity Not on file Sexual Orientation Not on file Last Filed Vital Signs Vital Sign Reading Time Taken Comments Blood Pressure 139/90 08/08/2024 2:24 PM CDT Pulse 81 08/08/2024 2:24 PM CDT Temperature 37.1 C (98.8 F) 08/08/2024 10:37 AM CDT Respiratory Rate 18 08/08/2024 2:24 PM CDT Oxygen Saturation 99% 08/08/2024 2:24 PM CDT Inhaled Oxygen Concentration - - Weight 130.2 kg (287 lb) 08/08/2024 10:37 AM CDT Height 165.1 cm (5' 5 ) 08/08/2024 10:37 AM CDT Body Mass Index 47.76 08/08/2024 10:37 AM CDT Plan of Treatment Health Maintenance Due Date Last Done Comments PAP SMEAR 1990 HIV SCREENING 2005 HEPATITIS C SCREENING 08/05/2008 DTAP/TDAP/TD VACCINES (1 - Tdap) 2009 HEPATITIS B VACCINE (1 of 3 - 19+ 3-dose series) 2009 COVID-19 VACCINE (3 - 2023-2 5 season) 2024 09/30/2021, 07/23/2021 INFLUENZA VACCINE (#1) 2024 5, 11/23/2004 DEPRESSION SCREENING 11/20/2024 ZOSTER VACCINE (1 of 2) 2040 HIB VACCINE Aged Out No longer eligi ble based on patient's age to complete this topic HPV VACCINE Aged Out No longer eligi ble based on patient's age to complete this topic MENINGOCOCCAL (Group B) VACCINE SHARED DECISION-MAKING Aged Out No longer eligible based on patient's age to complete this topic MENINGOCOCCAL GROUPS A/C/Y/W VACCINE Aged Out No longer eligible b ased on patient's age to complete this topic PNEUMOCOCCAL VACCINE Aged Out No long er eligible based on patient's age to complete this topic Care Teams Insulation Worker Apprentice Relationship Specialty Start Date End Date Unknown, Provider PCP - General 09/11/20
== END 2025-02-18 13:22 | disposition home or self-care (01) ==
LOC: ANHSURGERY 13:25
PROVIDERS: Anesthesiology; PCP Family Medicine; Visit Provider Obstetrics & Gynecology
DX: D64.9 Anemia, unspecified (principal)
CPT/HCPCS: 36415; 85014; 85018

== ENCOUNTER 2025-02-26 00:08 | Day surgery (SDC) | payer OTHER, SELFPAY ==
[2025-02-18 09:16] VITALS: BMI 46.0
--- NOTE | 2025-02-18 09:23 | PC.NURSE ---
Report to the Outpatient Waiting Room, entrance under the green pavilion located off [facility], at time _1100_ on date _[id number]_. Planned Procedure Time: _1pm_.? Time changes happen often and if your time is changed the preop area will call you the afternoon before. - You and your visitor will be asked to self-screen and do not enter if you have any COVID symptoms. Please call surgeon if you need to reschedule. - A mask is optional within the hospital at this time. Patients may have clear liquids (water, carbonated beverages, clear teas, apple juice) until 3 hours prior to surgery with a maximum of 20 ounces. - No food from midnight until time of surgery and no smoking, or chewing tobacco (or any form of nicotine). No chewing gum, candy or mints. Take only the following medications with a SIP of water on the morning of surgery: ___Albuterol if needed.____ DO NOT STOP ANY OF YOUR OTHER PRESCRIPTION MEDICATIONS PRIOR TO SURGERY EXCEPT THE FOLLOWING Hold all vitamins and supplements for 3 days per anesthesiologist. Medications to discontinue per physician Date to take last crgd__[id number] Please no make-up, nail upper sorbian, hairspray, perfume, deodorant, or body powder the day of surgery.? No jewelry (including any body piercings) or valuables the day of surgery, leave them at home.? Please take a shower or bath the night before, or the morning of, surgery with an antibacterial soap.? Wear comfortable, loose fitting clothing.? - Jewelry must be removed prior to entering the operating room.? Rings and piercings that are not removed may be cut off. - The hospital will not accept responsibility for valuables.? - Please leave all valuables, including medications, at home the day of surgery. If you are going home after surgery, a licensed driver trainee must drive you home.? - NO public transportation without another adult if you receive anesthesia. - We recommend that an adult stay with you for 24 hours following discharge. - We also recommend that you do not drive, make important decision, drink alcoholic beverages, or take any drugs that were not prescribed by your health care provider for at least 24 hours after your discharge time. Follow any additional instructions given to you from your surgeon. Telephone instructions given to __Judi___and asked if any additional questions and then verbalized understanding. Patient advised to call surgeon office or pre surgery nurse liaison [phone] if any additional questions.
[2025-02-26] VITALS (13 sets, daily range): BP systolic 96–134; BP diastolic 48–94; PULSE 58–83; RESP 12–20; TEMP 36.3; O2SAT 92–100
--- OUTSIDE RECORDS SUMMARY | 2025-02-26 00:10 | XMS_ITS | Clinical Summary ---
Author Organization [facility] Address [address] [place] [address] Care Team Providers Care Top And Seat Cover Fitter Name Role Phone Unknown, Provider Primary Care Provider Unavaila ble Source Comments [facility],non-owned Affiliates and Associated Physician Practices is amultiple site organization consisting of ambulatory clinics and hospital sitesin [place], [place], [place] and [place]. This disclosure is being madepursuant to the Care Everywhere program and may not contain all information available regarding this patient. Last updated 18.[facility] Allergies Active Allergy Reactions Criticality Noted Date [...] - 2023-2 5 season) 2024 09/30/2021, 07/23/2021 DEPRESSION SCREENING 11/20/2024 INFLUENZA VACCINE (Season Ended) 2025 10/02/2015, 11/23/2004 ZOSTER VACCINE (1 of 2) 2040 HIB [...] age to complete this topic Care Teams Top And Seat Cover Fitter Relationship Specialty Start Date End Date Unknown, Provider PCP - General 09/11/20
--- OUTSIDE RECORDS SUMMARY | 2025-02-26 00:10 | XMS_ITS | CONTINUITY OF CARE DOCUMENT ---
Author Name jose cruz, qikassyser Address Unknown Organization [facility] Address [address] [place] [address] Phone [phone] Care Team Providers Care Assembler Show Motor Name Role Phone Ryder Rodríguez MD Unavailable CEDRICK VINCENT Unavailable CEDRICK VINCENT Unavailable PROBLEMS Condition Status Date Provider Notes Chest pain active Ehsan Kam MD Palpitations active Ehsan Kam MD Shortness of breath active Ehsan mistry MD Obesity active Ehsan Kam MD Asthma active Ehsan Kam MD Dizziness active Ehsan Kam MD Fatigue active Ehsan Kam MD ENCOUNTERS Date Type Provider Location Encounter Diag nosis - In-person encounter Office Visit Laura Napier MD [facility] - In-person encounter Office Visit Ryder Rodríguez MD [facility] - In-person encounter Office Visit Ehsan Kam MD [facility] - In-person encounter Office Visit Ehsan Kam MD [facility] Chest painPalpitationsShortness of breathObesityAsthmaDizzinessFatigue VITAL SIGNS Date Observation Value Provider Body Mass Index (Ratio) 49.09 kg/m2 Milad Napier MD blood pressure, diastolic 80 mm[Hg] Cinthia mota Elwin blood pressure, systolic 119 mm[Hg] Jason higuera Elwin oxygen saturation, oximetry 98 % Judi Elwin pulse rate 94 /min Judi [facility] edgard weight E&M 295 [lb_av] Judi [facility] respiratory rate E&M 16 /min Silvia monroy Elwin blood pressure, cuff size large Cinthia mota [place]win height E&M 65 [in_i] [facility] Body Mass Index (Ratio) 48.75 [...] Kam MD blood pressure, cuff size large Nh nda Vinson blood pressure, diastolic 72 mm[Hg] [...] social history E&M S moking History: P zechariah has never smoked. Ryder Rodríguez MD smoking [...] Payer name Policy type / Coverage type Onset red republican [place] PEE MEDICAID (2) Medicaid [id number] ADVANCE DIRECTIVES Name Date DISCUSSED - NO DECISION MADE TREATMENT PLAN Date Name Performer [id number],S, Miguel Ahmedza i [id number],S, Miguel Ahmedza i [id number],S, Miguel Ahmedza i [id number],S, Miguel Ahmedza i [id number],S, Miguel Ahmedza i [id number],C,On albuterol inhaler as needed. Ryder Rodríguez MD [id number],C,Weight loss a dvised. Ryder Rodríguez MD [id number],C,P alpitations with SOB, since 19yo several times a day. Monitor in 2017 was unremarkable. Normal routine stress test in 2017. We will repeat routine stress test and 7 day monitor. Etiology is unknown. Ryder Rodríguez MD [id number],C,F requent episodes of chest pain/tightness at rest, [...] xide 400 mgPO bid Orders: E KG (CPT-57444) 9 9213 LTD. Complex (CPT-02890) Ehsan Kam MD EP: O rders: E KG (CPT-95297) 9 9213 LTD. Complex (CPT-17187) Ehsan Kam MD EP: O rders: E KG (CPT-17820) 9 9213 LTD. Complex (CPT-01639) Ehsan Kam MD EP: O rders: E KG (CPT-88829) 9 9213 LTD. Complex (CPT-95032) Ehsan Kam MD Cardiology [facility] faxed 02/20/17:Weight loss and exercise advised. Xavier [facility] [place] [facility] faxed 02/20/17:Orders: S NOMED-CT: [id number] Current Medications Documented (SCT-[id number]) E KG (CPT-53269) Z IO Event (CPT-0296T) [facility] [place] faxed 02/20/17:Orders: S leep Study Home (CPT-61847) [facility] [place] faxed 02/20/17:Orders: F VC - 08813 (84377) F RC - 23509 (39256) D LCO - 05838 (67112) [facility] [place] faxed 02/20/17:Orders: S TR - Routine (CPT-70744) C omplete Echo (CPT-80867) F VC - 83561 (48620) F RC - 49955 (79036) D LCO - 35837 (67521) [facility] [place] faxed 02/20/17:Location of pain is left anterior chest and occuring randomly. Pain radiates to none. Symptoms associated with pain include shortness of breath, palpitations and dizziness. Orders: E KG (CPT-39468) S TR - Routine (CPT-38913) C omplete Echo (CPT-01725) [facility] Date Name CT, Coronary Calcium Score Complete Echo Monitor - Telemetry (Mobile Cardiac) Stress Routine Holter Monitor 24 Hr Sleep Study Home DLCO - 01616 FRC - 43409 FVC - 17664 Complete Echo STR - Routine ZIO Event HISTORY OF PROCEDURES Procedure Date Procedure Name Provider Procedure Notes S tatus EKG Ehsan mistry MD completed SNOMED-CT: [id number] Current Medications Documented Ehsan Kam MD completed Stress EKG Ehsan mistry MD completed FVC / MVV with bronchodilator - 02130 Ehsan Kam MD completed FRC - 58748 Ehsan mistry MD completed SpO2 - 75951 Ehsan mistry MD completed DLCO - 15574 Ehsan mistry MD completed ZIO Event Hookup Ehsan benito MD completed EKG Ehsan mistry MD completed SNOMED-CT: 287712213288801 Current Medications Documented Ehsan Kam MD completed
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
--- OUTSIDE RECORDS SUMMARY | 2025-02-26 00:10 | XMS_ITS | Clinical Summary ---
Author Organization [facility] Address [address] [place] [address] Care Team Providers Care Oracle Forms Developer Name Role Phone Laura Parr Primary Care [...] Comments Blood Pressure 105/73 10/20/2022 1:55 PM RECORDS MANAGEMENT TECHNICIAN Pulse 75 10/20/2022 1:55 PM RECORDS MANAGEMENT TECHNICIAN Temperature 36.7 C (98.1 F) 10/20/2022 8:28 AM RECORDS MANAGEMENT TECHNICIAN Respiratory Rate 18 10/20/2022 1:55 PM RECORDS MANAGEMENT TECHNICIAN Oxygen Saturation 100% 10/20/2022 1:55 PM RECORDS MANAGEMENT TECHNICIAN Inhaled Oxygen Concentration - - Weight 133 kg (293 lb 3.4 oz) 10/20/2022 8:28 AM RECORDS MANAGEMENT TECHNICIAN Height 165.1 cm (5' 5 ) 10/20/2022 8:28 AM RECORDS MANAGEMENT TECHNICIAN Body Mass Index 48.79 10/20/2022 8:28 AM RECORDS MANAGEMENT TECHNICIAN Plan of Treatment Health Maintenance Due Date [...] patient's age to complete this topic Insurance [place] [address] Care Teams Oracle Forms Developer Relationship Specialty [place] [address] [place] [phone] PCP - General PHYSICIAN DIE CASTING MACHINE SETTER 10/20/22
--- OUTSIDE RECORDS SUMMARY | 2025-02-26 00:11 | XMS_ITS | Clinical Summary ---
Author Organization [facility] [place] [address] Care Team Providers Care Scientific Programmer Analyst Name Role Phone April Valladares MD Primary [...] Type Department Care Team Description 02/04/2025 Telephone [facility] [address] [place] [address] Elba Carney MD 02/03/2025 10:30 AM CDT - 02/03/2025 11:59 PM CDT Hospital Encounter [facility] Outpatient Health - Ultrasound [address] [facility] [place] [address] Pelvic and perineal pain Discharge Disposition: Discharge to home or self care 01/17/2025 2:45 PM RIM ROLLER SETTER Office Visit [facility] [address] [facility] 3rd Floor [address] [place] [address] Elba Carney MD Healthcare maintenance [...] on file Legal Sex Female 12:59 PM RIM ROLLER SETTER Gender Identity Not on file Sexual Orientation [...] Comments Blood Pressure 128/74 01/17/2025 2:57 PM RIM ROLLER SETTER Pulse 108 01/17/2025 2:57 PM RIM ROLLER SETTER Temperature - - Respiratory Rate 18 01/17/2025 2:57 PM RIM ROLLER SETTER Oxygen Saturation 100% 01/17/2025 2:57 PM RIM ROLLER SETTER Inhaled Oxygen Concentration - - Weight 128.8 kg (284 lb) 01/17/2025 2:57 PM RIM ROLLER SETTER Height 165.1 cm (5' 5 ) 01/17/2025 2:57 PM RIM ROLLER SETTER Body Mass Index 47.26 01/17/2025 2:57 PM RIM ROLLER SETTER Plan of Treatment Health Maintenance Due Date [...] 5 season) 2024 09/30/2021, 07/23/2021 Influenza Vaccine (Season Ended) 2025 10/02/20 15, 11/23/2004 Hepatitis B Screening Completed 09/12/2001 , 10/08/1999, [...] al Result from Last 3 Months Insurance [id number] [place] [address] Care Teams Scientific Programmer Analyst Relationship Specialty Start Date End Date April Valladares MD [address] [place] [address] PCP - General Gastroenterology 08/12/24
--- OUTSIDE RECORDS SUMMARY | 2025-02-26 00:11 | XMS_ITS | Referral Summary ---
Author Organization [facility] Address [address] [place] [phone] Care Team Providers Care Chief Crna Name Role Phone April Valladares MD Primary Care Provider Encounters Date Type Department Care Team Description 02/04/2025 Telephone [facility] [address] [place] [address] Elba Carney MD 02/03/2025 10:30 AM CDT - 02/03/2025 11:59 PM CDT Hospital Encounter [facility] Outpatient Health - Ultrasound [address] [place] [address] Pelvic and perineal pain Discharge Disposition: Discharge to home or self care 01/17/2025 2:45 PM TELEPHONE ORDER SUPERVISOR Office Visit [facility] Clinic [address] [place] [address] 3rd Floor [address] [place] [phone] Elba Carney MD Healthcare maintenance (Primary Dx); [...] on file Legal Sex Female 12:59 PM TELEPHONE ORDER SUPERVISOR Gender Identity Not on file Sexual Orientation Not on file Last Filed Vital Signs Vital Sign Reading Time Taken Comments Blood Pressure 128/74 01/17/2025 2:57 PM TELEPHONE ORDER SUPERVISOR Pulse 108 01/17/2025 2:57 PM TELEPHONE ORDER SUPERVISOR Temperature - - Respiratory Rate 18 01/17/2025 2:57 PM TELEPHONE ORDER SUPERVISOR Oxygen Saturation 100% 01/17/2025 2:57 PM TELEPHONE ORDER SUPERVISOR Inhaled Oxygen Concentration - - Weight 128.8 kg (284 lb) 01/17/2025 2:57 PM TELEPHONE ORDER SUPERVISOR Height 165.1 cm (5' 5 ) 01/17/2025 2:57 PM TELEPHONE ORDER SUPERVISOR Body Mass Index 47.26 01/17/2025 2:57 PM TELEPHONE ORDER SUPERVISOR Plan of Treatment Not on file Procedures [...] al Result from Last 3 Months Insurance [facility] Care Teams Chief Crna Relationship Specialty Start Date End Date April Valladares MD [address] [place] [id number] PCP - General Gastroenterology 08/12/24
--- OUTSIDE RECORDS SUMMARY | 2025-02-26 00:11 | XMS_ITS | Data Portability ---
Author Organization [facility] Address [address] [place] [address] [place] [address] Assessment No assessment recorded. Plan of Treatment [...] chromotub ation of oviduct (SURG) 2024 025 [id number] [facility], [facility] [address], [address], 02/04/2025 09:29:32 laparosco pic ovarian cystectom y (SURG) 2024 025 [email or web address] [facility], [facility] [address], [place], [address], 02/18/2025 17:04:13 Imaging US, pelvis 2024 025 [email or web address] [place], [address], [place], [address], 01/27/2025 18:08:11 US, transvagi nal 2024 025 [email or web address] [place], [address], [address], [place], [address], 01/27/2025 18:08:11 US, pelvis 2024 025 [email or web address] [place], [address], [place], [address], 11/28/2024 21:13:44 US, transvagi nal 2024 025 [email or web address] [place], [address], [address], [place], [address], 11/28/2024 21:13:44 Medication Orders None recorded. Patient TargetsNo targets recorded. Patient InstructionsNo instructions recorded. Reason for Referral None Reported. Results Created Date Observation Date Name Description Value Unit Range Abnormal Flag Note LastModifiedBy Organization Detail LastModifiedTime 11/28/1911/28/2024 US, vyvi s No observ ation [facility]. [email or web address] [address], [place], [address], 11/28/2024 18:49:48 11/28/19 25 11/28/2024 US, trans vagin al No observ ation record ed. [email or web address] [place] [address] , [place], [address], 11/28/2024 18:48:55 11/28/19 25 11/28/2024 US, pelvi s No observ ation record ed. [email or web address] [place] [address], [place], [address], 11/28/2024 20:07:40 01/28/20 25 01/27/2025 US, pelvi s No observ ation record ed. [email or web address] [place] [address], [place], [address], 01/27/2025 12:42:38 01/28/20 25 01/27/2025 US, trans vagin al No observ ation record ed. [email or web address] [place] [address], [place], [address], 01/27/2025 12:42:48 01/28/2001/27/2025 US, petra s No observ ation record ed. [email or web address] [place] [address], [place], [address], 01/27/2025 14:48:44 Result Notes None recorded. Problems Name Problem SNOMED Code Status Onset Date Resolution Date Notes Provider Name and Address Organization Details Recorded Time Single live 825219771 Active 2014 Mother with single liveborn; Practice ID: 0001 Not Available [facility] 0 15:27:55 Postpartu m care Active 2014 Postpartu m follow-up ;Practice ID: 0001 Not Available [facility] 0 15:27:55 test negative 169635621 Active 2014 Negative Test;Prac marek ID: 0001 Not Available [facility] 0 15:27:55 Insertion of subcutane ous contracep tive Active 2014 Insertion of implantab le subdermal contracep tive;Prac marek ID: 0001 Not Available [facility] 0 15:27:55 Uses combined oral contracep tion 080050395 Active 2018 Encounter for initial prescript ion of contracep tive pills;Pra ctice ID: 0001 Not Available [facility] 0 15:27:55 Routine care Active 2013 Supervisi on of other normal ;Practice ID: 0001 Not Available [facility] 0 15:27:55 Ultrasono graphy Active 2013 screening for malformat ion using ultrasoni cs;Practi ce ID: 0001 Not Available [facility] 0 15:27:55 screening Active 2013 screening for malformat ion using ultrasoni cs;Practi ce ID: 0001 Not Available [facility] 0 15:27:55 Congenita l malformat ion 325887487 Active 2013 screening for malformat ion using ultrasoni cs;Practi ce ID: 0001 Not Available [facility] 0 15:27:55 Excessive growth affecting managemen t of mother 92689105 Active 2013 GROWTH LARGE LGA;Pract ice ID: 0001 Not Available [facility] 0 15:27:55 Maternal care for diminishe d movements Active 2013 Decreased movements , affecting managemen t of mother, antepartu m condition or complicat ion;Pract ice ID: 0001 Not Available [facility] 0 15:27:55 Leukocyto sis 102355035 Active 2014 LEUKOCYTO SIS NOS;Pract ice ID: 0001 Not Available [facility] 0 15:27:55 Poor growth affecting managemen t 383128240 Active 2014 GROWTH POOR SGA;Pract ice ID: 0001 Not Available [facility] 0 15:27:56 Delivery normal 40714594 Active 2014 Normal delivery; Practice ID: 0001 Not Available [facility] 0 15:27:56 Female genital organ symptoms 576190551 Active 2012 Unspecifi ed symptom associate d with female genital organs;Pr actice ID: 0001 Not Available [facility] 0 15:27:56 Threatene d premature labor - not delivered 640786459 Active 2012 Threatene d premature labor, antepartu m;Practic e ID: 0001 Not Available [facility] 0 15:27:56 Complicat ion related to Active 2012 Weight Insuffici ent Antepartu m;Practic e ID: 0001 Not Available [facility] 0 15:27:56 Insuffici ent care 50220310845 09 Active 2012 Supervisi on of high-risk with insuffici ent care;Prac marek ID: 0001 Not Available [facility] 0 15:27:56 Family planning surveilla nce Active 2012 Surveilla nce of other contracep tive method;Pr actice ID: 0001 Not Available [facility] 0 15:27:57 Specializ ed medical examinati on Active 2013 Routine gynecolog ical examinati on;Practi ce ID: 0001 Not Available [facility] 0 15:27:57 test positive 674209732 Active 2013 Positive Test;Prac marek ID: 0001 Not Available [facility] 0 15:27:57 Screening for malignant neoplasm of cervix Active 2013 Pap Smear;Pra ctice ID: 0001 Not Available [facility] 0 15:27:57 Abdominal pain 09104885 Active 2011 Abdominal pain, other specified site;Prac marek ID: 0001 Not Available [facility] 0 15:27:58 Education Active 2018 Encounter for other general counselin g and advice on contracep tion;Jovan rded Elsewhere : No Locati on: [facility] So urce: EHR Chron ic: N Practic e ID: 0001 Bill able Time: 01:00:00 PM Not Available [facility] 0 15:27:58 Problem Notes None recorded. Procedures Surgical History Date Name Laterality Status Provider Name and Address Organization Details Recorded Time 01/24/2024 Date of Last Pap Smear completed Chantal Ldeezma [facility] 03/21/2024 12:15:30 Imaging Results Imaging Date Name Status LastModified by Organization Details LastModified Time 11/28/2024 US, pelvis completed [email or web address] [place] [address], [place], [address], 11/28/2024 18:49:48 11/28/2024 US, trans[facility]aginal [email or web address] [address], [place], [address], 11/28/2024 18:48:55 11/28/2024 US, pelvis completed [email or web address] [place] [address], [place], [address], 11/28/2024 20:07:40 01/27/2025 US, pelvis completed [email or web address] [place] [facility] [address], [place], [address], 01/27/2025 12:42:38 01/27/2025 US, transvaginal completed [email or web address] Jeffery e [address], [place], [address], 01/27/2025 12:42:48 01/27/2025 US, pelvis completed [email or web address] [place] [address], [place], [address], 01/27/2025 14:48:44 Procedure Notes None recorded. Medical [...] Prescrib ed Elsewher e: No Locat ion: [facility] odify By: [email or web address] tawnya En counter DateTime [...] Prescrib ed Elsewher e: No Locat ion: [facility] odify By: [email or web address] Encounte r DateTime : [...] Prescrib ed Elsewher e: Yes Loca tion: [facility] odify By: cassi devlin DateTime : 02/17/20 15 11:00:00 AM Not Available Not Available Not Available Vitals Date Recorded Body height Body mass index (BMI) Body weight Systolic blood pressure Diastolic blood pressure Provider Name and Address Organization Details Last Updated DateTime 11/27/2024 165.1 cm 48.8 kg/m2 048675.5 6 g 120 mm[Hg] 76 mm[Hg] Eneida Riley [facility] 5 17:05:10 Date Recorded Body height Body mass index (BMI) Body weight Systolic blood pressure Diastolic blood pressure Provider Name and Address Organization Details Last Updated DateTime 11/29/2024 165.1 cm 48.3 kg/m2 819106.7 9 g 126 mm[Hg] 52 mm[Hg] Chantal Ledezma [facility] 5 15:29:33 Date Recorded Body height Body mass index (BMI) Body weight Systolic blood pressure Diastolic blood pressure Provider Name and Address Organization Details Last Updated DateTime 01/28/2025 165.1 cm 47.8 kg/m2 039949.0 1 g 117 mm[Hg] 75 mm[Hg] ANA Lynn [facility] 5 11:08:20 Social History Question Answer Notes LastModified by Organizat ion Details LastModified Time Tobacco Smoking Status Never Smoker Chantal rinaldi, [facility] 01/24/2024 15:28:54 What Is Your [...] Or The Highest Degree You Have Received? [id number] Information not available 01/24/2024 Are There Any [...] Anxious, Or Unable To Sleep At Night)? [id number] Information not available 01/24/2024 Do You Use [...] SNOMED-CT Code Diagnosis ICD10 Code Diagnosis Note [id number] Nayely Howell , [facility] [address] [address] 01/24/2024 14:57:07 01/24/2024 16:38:48 Gynecologic examination 05443718 Z01.419 Take Calcium with Vitamin D 1200mg [...] PCP to manage Adult heal th examination 565047534 Z00.00 Vitamin D deficiency 347 36004 E55.9 Vaginitis 80828886 N76.0 SuspectBV/ Yeast on examPrevio usly on abx 1-2wks prior to this appt. Counseled on medication R/B's, Most common side effects, & use. All questions were answered to patient satisfacti on. Body mass index 40+ - severely obese 442490975 Z68.[address], Exercise/d iet changes; Medical management of weight loss Rx [id number] MARCELINA [facility] [address] [address] 03/21/2024 11:57:48 03/21/2024 15:47:00 Pain in pelvis 85122122 R10.2 Today we discussed that her sx's [...] questions answered to patient satisfacti on. Vaginitis 76851638 N76.0 Suspect BV/Yeast on examDiscus sed treatment. [...] plan of care. Contracept ion care management 324141008 Z30.9 Discuss BC options.Co ndoms given and is to reach out if would like to pursue another form of BC. 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 Pain in pelvis 10629202 R10.2 [id number] Christiano Santiago MD [place] [address] [address] 09/26/2024 10:21:30 09/27/2024 05:10:05 Postoperative care 545808150 Z48.89 This patient is a 34-year-ol d [...] Her incisions are clean dry and intact [id number] Christiano Santiago MD [place] [address] [address] 11/27/2024 16:37:01 11/27/2024 17:47:41 Pain in pelvis 11212122 R10.2 this patient is a 34-year-ol d [...] minutes on the patient's care in total [id number] Lyric Whitlock [place] [address] [address] 11/28/2024 15:33:14 11/28/2024 16:36:52 Pain in pelvis 46146838 R10.2 this patient is a 34-year-ol d [...] minutes on the patient's care in total [id number] Christiano Santiago MD [place] [address] [address] 11/29/2024 15:09:41 11/29/2024 16:37:43 Pain in pelvis 13311446 R10.2 this patient is a 34-year-ol d [...] agreed to follow-up and serial ultrasound . [id number] Alisia Jovel [place] [address] [address] 01/27/2025 11:28:05 01/27/2025 12:15:43 Cyst of ovary 70803225 N83.292 46-year-ol d female with 5 cm [...] there is risk of hemorrhage and infection. [id number] Christiano Santiago MD [place] [address] [address] 01/28/2025 10:51:17 01/28/2025 11:44:18 Pain in pelvis 43862971 R10.2 This patient is a 34-year-ol d female with pelvic pain, hemorrhagi c ovarian cyst and scarring of the fallopian tube. We have agreed to perform laparoscop ic left ovarian cystectomy and chromotuba tion. She understand s risks, benefits, and alternativ es. She has completed the informed consent process and is ready to proceed. Hemorrhagi c cyst of ovary 423571993 N83.209 Blocked fa llopian tube 429388110 N97.1 Health Concerns Section Related Observation LastModified by Organization Detai ls LastModified Time None Recorded Concern Status LastModified by Organization Details LastModified Time None Recorded Advance Directives Directive None Recorded Payers Encounter Date Sequence Insurance Name Policy Number Policy Contreras Covered Member ID Contreras Member ID Guarantor Name 11/27/2024 1 [facility] ON OR AFTER 05/20/21 (MEDICAID REPLACEMENT - HMO) Judi Ambrocio [id number] Judi Ambrocio 11/28/2024 1 [facility] ON OR AFTER 05/20/21 (MEDICAID REPLACEMENT - HMO) Judi Ambrocio [id number] Judi Ambrocio 11/29/2024 1 [facility] ON OR AFTER 05/20/21 (MEDICAID REPLACEMENT - HMO) Judi Ambrocio [id number] Judi Ambrocio 01/27/2025 1 [facility] ON OR AFTER 05/20/21 (MEDICAID REPLACEMENT - HMO) Judi Ambrocio [id number] Judi Ambrocio 01/28/2025 1 [facility] AFTER 05/20/21 (MEDICAID REPLACEMENT - HMO) Judi Ambrocio [id number] Judi Ambrocio Notes Date Note Type Note [...] total Christiano Santiago MD [address], [place], [address], [facility] 11/27/2024 17:47:23 11/29/2024 text/html this patient [...] ultrasound. Christiano Santiago MD [address], [place], [address], [facility] 11/29/2024 16:03:39 01/28/2025 text/html This patient [...] infection. Christiano Santiago MD [address], [place], [address], [facility] 01/28/2025 11:42:38 OBGyn Episode Ob Episode Information Episode Created Date Number of Fetuses Patient Bloodtype Patient rh Status Prepregnancy Weight lbs Domestic Partner Domestic Partner Phone Father Name Biztalk Consultant Status 01/18/20 24 1 CLOSED Fetus Data First Name Last Name Admitted to NICU Weight (g) Sex Living Outcome Pediatric Complications Fetus ID Race Codes Race Delivery Type 3061.74 6 M Full Term [address]70 Vaginal Delivery Porfirio Calculation Initial Porfirio Date [...] Domestic Partner Domestic Partner Phone Father Name Biztalk Consultant Status 01/18/20 24 1 CLOSED Fetus Data First Name Last Name Admitted to NICU Weight (g) Sex Living Outcome Pediatric Complications Fetus ID Race Codes Race Delivery Type 3005.04 7 M Full Term [address]9421 Vaginal Delivery Porfirio Calculation Initial Pofririo Date Initial Exam Date Initial Exam Provider [...] Domestic Partner Domestic Partner Phone Father Name Biztalk Consultant Status 01/24/20 24 1 CLOSED Fetus Data First Name Last Name Admitted to NICU Weight (g) Sex Living Outcome Pediatric Complications Fetus ID Race Codes Race Delivery Type , Spontane ous 28158 Porfirio Calculation Initial Porfirio Date Initial Exam [...] Domestic Partner Domestic Partner Phone Father Name Biztalk Consultant Status 01/24/20 24 1 CLOSED Fetus Data First Name Last Name Admitted to NICU Weight (g) Sex Living Outcome Pediatric Complications Fetus ID Race Codes Race Delivery Type , Spontane ous 31452 Porfirio Calculation Initial Porfirio Date Initial Exam [...] Domestic Partner Domestic Partner Phone Father Name Biztalk Consultant Status 01/18/20 24 1 CLOSED Fetus Data First Name Last Name Admitted to NICU Weight (g) Sex Living Outcome Pediatric Complications Fetus ID Race Codes Race Delivery Type 3288.54 2 M Full Term [address]2360 Vaginal Delivery Porfirio Calculation Initial Porfirio Date [...]
[2025-02-26] MEDS: LACTATED RINGERS 1,000 ML 30 ML IV CONT ×2 (11:35→14:25)
[2025-02-26] MEDS: ACETAMINOPHEN 500 MG TABLET 1000 MG PO (11:40)
[2025-02-26 11:43] LABS: BEDSIDEPREGUCG Negative (Negative)
--- NOTE | 2025-02-26 11:55 | PM.IMHP ---
H&P: HPI History of Present Illness Date/Time: 02/26/25 11:55 Chief Complaint: Ovarian cyst Narrative: This patient is a 34-year-old female with a large hemorrhagic cyst and scarred fallopian tubes. We have agreed to perform laparoscopic left ovarian cystectomy and chromotubation. She understands the risks, benefits, and alternatives. She has completed informed consent process is ready to proceed. The patient understands the details of the procedure. The procedure has been explained in detail. She understands the risks. She understands that injuries may occur that result in hospitalization, more surgery, and severe illness. She understands risk of hemorrhage and infection. She denies any chest pain or shortness of breath. She denies any nausea, vomiting, fever, chills. Review of Systems Review of Systems: All systems reviewed & are unremarkable except as noted in HPI and below Constitutional: Constitutional: Denies chills, Denies fatigue, Denies fever(s) and Denies weakness Eyes: Eyes: Denies blurry vision, Denies change in vision, Denies loss of peripheral vision, Denies loss of vision, Denies other visual disturbances and Denies eye pain ENT: Denies vertigo, Denies dizziness, Denies hearing loss, Denies mouth pain, Denies nasal obstruction, Denies neck mass and Denies neck pain Cardiovascular: Cardiovascular: Denies chest pain, Denies diaphoresis, Denies syncope, Denies leg edema and Denies dyspnea Respiratory: Respiratory: Denies chest congestion, Denies cough, Denies hemoptysis, Denies dyspnea and Denies wheezing Gastrointestinal: Gastrointestinal: Denies abdominal pain, Denies constipation, Denies diarrhea, Denies nausea and Denies vomiting Genitourinary: Genitourinary: Denies hematuria, Denies change in libido, Denies nocturia, Denies genital lesions, Denies flank pain and Denies urinary urgency Musculoskeletal: Musculoskeletal: Denies abnormal gait, Denies back pain, Denies myalgias, Denies arthralgias, Denies joint swelling, Denies muscle weakness and Denies neck pain Integumentary/Breasts: Skin/Breast: Denies swelling, Denies breast pain, Denies breast mass, Denies dry skin, Denies nipple discharge, Denies unusual bruising and Denies jaundice Neurologic: Denies Neuro-related abnormal movements, Denies Abnormal speech present, Denies abnormal gait, Denies behavioral changes, Denies confusion, Denies vertigo, Denies dizziness, Denies syncope, Denies loss of vision, Denies memory loss, Denies convulsions and Denies weakness Psychiatric: Psychiatric: Denies abnormal sleep pattern, Denies behavioral changes, Denies change in libido, Denies confusion, Denies depression, Denies anhedonia and Denies memory loss Endocrine: Endocrine: Reports no additional endocrine complaints, Denies change in libido and Denies fatigue Hematologic/Lymphatic: Hematologic/Lymphatic: Reports no additional hematologic/lymphatic complaints Allergic/Immunologic: Allergic/Immunologic: Reports no additional allergic/immunologic complaints and Denies wheezing PMFSH Past Medical History Medical History (Reviewed 11/15/24 @ 08:57 by Zamzam Yoo [facility]) Morbid obesity with BMI of 45.0-49.9, adult Seasonal allergies Family History Family History (Updated 11/15/24 @ 09:30 by Mariana Chawla MD) Mother Arthritis Grandparent Breast cancer Other Heart disease Social History Social History (Reviewed 11/15/24 @ 09:02 by Zamzam Yoo [facility]) Smoking status: Never smoker Second hand tobacco smoke exposure: No Alcohol intake: never Substance use: never Do You Feel Safe in your Home?: Yes Lack of Transportation: No Lack of Food: Never True Current Housing: I Have Housing Concerned About Future Housing: No Difficulty Paying Gas/Electric Bills: No Difficulty Paying for Meds: No Currently Unemployed: No Education: High School Diploma/GED Difficulty w/ Childcare or Family Care: No Living arrangements: with family Spiritual care concerns: No Meds Home Medications and Allergies Home Medications ?Medication ?Instructions ?Recorded ?Confirmed ?Type ferrous sulfate 325 mg (65 mg 325 mg PO DAILY 09/19/24 02/26/25 History iron) tablet (FeroSul) albuterol sulfate 90 mcg/actuation 1 inh inhalation Q4H PRN shortness 11/15/24 02/26/25 Rx aerosol inhaler of breath or wheezing #8.5 grams ascorbic acid (vitamin C) 500 mg 250 mg (1/2 x 500 mg) PO DAILY #30 11/15/24 02/26/25 Rx tablet tabs duloxetine 30 mg capsule,delayed 30 mg PO DAILY #30 caps 11/15/24 02/26/25 Rx release Allergies Allergy/AdvReac Type Severity Reaction Status Date / Time ibuprofen Allergy Swelling Verified 02/26/25 11:20 of Lip/Tongue/Throat ketorolac (From Toradol) Allergy Swelling Verified 02/26/25 11:20 of Lip/Tongue/Throat Vital Signs Vital Signs - 24 hr 02/26/25 11:10 Pulse Rate 77 Respiratory Rate 20 Blood Pressure 112/75 Pulse Oximetry 100 Oxygen Delivery Room Air Exam Const: General: cooperative, healthy appearing, comfortable and no acute distress Orientation/consciousness: oriented to person, oriented to place and oriented to time HENMT: Head: normal to inspection Ears: external ears normal Face/Nose/Sinus: Normal external nose present and normal facial exam Face and sinus: normal facial exam Eyes: General: appearance normal, both eyes and all related structures Neck: Neck: normal visual inspection, trachea midline and supple Resp: Auscultation: clear to auscultation bilaterally, no crackles, no rales, no rhonchi and no wheezes Cardio: Rate: regular rate Rhythm: regular rhythm Heart sounds: no click, no murmurs and no rubs GI: GI Palp: No abdominal tenderness, No Soft to palpation, No Tenderness to palpation present (GI) and No Palpable mass present Auscultation: normal bowel sounds Skin: General skin exam: normal color and no rashes or lesions noted Neuro: General: oriented to person, oriented to place and oriented to time Extrem: General: normal to inspection, no joint enlargement, no clubbing, cyanosis or edema, no pedal edema and no calf tenderness Psych: Appearance: grossly normal Mental Status: mental status grossly normal Speech and movement: Normal speech and movement present Assessment and Plan Assessment and plan (1) Ovarian cyst: Qualifiers: Laterality: left Qualified Code(s): N83.202 - Unspecified ovarian cyst, left side Code(s): N83.209 - Unspecified ovarian cyst, unspecified side Status: Acute Plan This patient is a 34-year-old female with a large hemorrhagic cyst and scarred fallopian tubes. We have agreed to perform laparoscopic left ovarian cystectomy and chromotubation. She understands the risks, benefits, and alternatives. She has completed informed consent process is ready to proceed.
--- NOTE | 2025-02-26 11:58 | WPDHPUPDATE1 ---
History and Physical Update Update Date/Time: 02/26/25 11:58 History and Physical has been reviewed, including an updated exam of the patient. There are NO changes in the patient's condition. Risks, benefits, and alternatives have been discussed and questions answered. Patient agrees to proceed with procedure.
--- NOTE | 2025-02-26 12:01 | P.PNAN_ITS ---
Anes - Initial Pre Proc Eval Procedure: Operation Date: 02/26/25 13:00 Proposed Procedures p Laparoscopic Left Ovarian Cystectomy, Chromotubation of [place] - Christiano Santiago MD Date/Time: 02/26/25 12:01 Surgeon: Christiano Santiago MD Pre Op Diagnosis: Blk Fallopian Tube, Hemorrhagic of Cyst Lt Ovary Patient Data Age: 34 Gender: F Height: 1.65 m Weight: 131.6 kg Last Vital Signs Pulse 77 02/26/25 11:10 Resp 20 02/26/25 11:10 BP 112/75 02/26/25 11:10 Pulse Ox 100 02/26/25 11:10 O2 Del Method Room Air 02/26/25 11:10 Allergies Allergy/AdvReac Type Severity Reaction Status Date / Time ibuprofen Allergy Swelling Verified 02/26/25 11:20 of Lip/Tongue/Throat ketorolac (From Toradol) Allergy Swelling Verified 02/26/25 11:20 of Lip/Tongue/Throat Home Medications ?Medication ?Instructions ?Recorded ?Confirmed ?Type ferrous sulfate 325 mg (65 mg 325 mg PO DAILY 09/19/24 02/26/25 History iron) tablet (FeroSul) albuterol sulfate 90 mcg/actuation 1 inh inhalation Q4H PRN shortness 11/15/24 02/26/25 Rx aerosol inhaler of breath or wheezing #8.5 grams ascorbic acid (vitamin C) 500 mg 250 mg (1/2 x 500 mg) PO DAILY #30 11/15/24 02/26/25 Rx tablet tabs duloxetine 30 mg capsule,delayed 30 mg PO DAILY #30 caps 11/15/24 02/26/25 Rx release Laboratory Tests 02/26/25 11:20 POC Urine HCG, Qual Negative (Negative) Patient hx anesthesia problems: none Family hx anesthesia problems: none Results Review: All pre-operative results and documents have been reviewed as part of the pre- operative evaluation. [facility] Past Medical History Medical History Morbid obesity with BMI of 45.0-49.9, adult Seasonal allergies Family History Family History Mother Arthritis Grandparent Breast cancer Other Heart disease Social History Social History Smoking status: Never smoker Second hand tobacco smoke exposure: No Alcohol intake: never Substance use: never Do You Feel Safe in your Home?: Yes Lack of Transportation: No Lack of Food: Never True Current Housing: I Have Housing Concerned About Future Housing: No Difficulty Paying Gas/Electric Bills: No Difficulty Paying for Meds: No Currently Unemployed: No Education: High School Diploma/GED Difficulty w/ Childcare or Family Care: No Living arrangements: with family Spiritual care concerns: No Anes - Eval Final PreProcedure Day of Procedure 02/26/25 12:01 Patient weight: morbidly obese Heart: regular rate and rhythm Lungs: clear to auscultation Airway: Mallampati scale class II Neurological: alert and oriented Last oral intake: >/= 8 hours ASA classification: III Emergent: no Anesthetic plan: proceed Anesthesia type and monitoring: general ETT and standard monitoring Results Review: All pre-operative results and documents have been reviewed as part of the pre- operative evaluation. Informed Consent: The patient's anesthetic plan and its attendant risks and benefits were discussed with the patient/family/POA. Questions were solicited and answers provided to the satisfaction of the patient/family/POA.
[2025-02-26] MEDS: METHYLENE BLUE 0.5% INJ 10 ML AMPULE 5 ML IRRIGATION (12:57)
--- NOTE | 2025-02-26 14:23 | W.PM.PROC2 ---
Procedure Note - Detailed Date of Procedure 02/26/25 Pre-op Diagnosis Hemorrhagic of Cyst Lt Ovary Post-op Diagnosis Other Procedure Performed Laparoscopic left ovarian cystectomy and adhesiolysis-1 hour. Surgeon Christiano Santiago MD Anesthesia General Indications Pelvic pain Findings Dense scarring in the left adnexa. Unable to visualize fallopian tube and left ovary entirely. Portion of the ovary was observed where the hemorrhagic cyst was drained. Normal-appearing right ovary, normal-appearing right fallopian tube. Very large uterus, chromotubation was not performed, a very large vagina and malposition of the cervix in uterus meet insertion the cannula impossible/extremely difficult. Description of Procedure The patient was taken to the operating room. She was prepped and draped in the dorsal lithotomy position after induction general anesthesia. A 5 mm incision was made with a scalpel on the abdominal skin in the left upper quadrant of the abdomen. A 5 mm trocar was inserted into the intra-abdominal cavity under direct visualization the scope. In the same fashion a 5 mm left lower quadrant trocar was inserted and a 5 mm infraumbilical trocar was inserted. 1 hour adhesiolysis was performed the left adnexa try to separate sigmoid colonic fat from the uterus and ovarian cyst on the left. It ultimately became too old and the risk was considered too great. The case was discontinued. This cyst was infected drain. A area of the ovary was opened and a great deal of dark fluid egressed. The pelvis was irrigated. The pneumoperitoneum was reduced. The trocars were removed. Skin was closed with subcuticular 4 micro. The patient's incisions were covered with Dermabond. She was taken recovery room in stable condition. Sponge lap and needle counts were correct x2. Complications No immediate complications Condition Stable Disposition Same day
[2025-02-26] MEDS: fentaNYL CITRATE INJ (*CRX) 100 MCG/2 ML VIAL 25 MCG IV PUSH ×3 (14:46→15:15)
[2025-02-26] MEDS: ONDANSETRON INJ 4 MG/2 ML VIAL IV PUSH (15:38)
[2025-02-26] MEDS: oxyCODONE HCL (*CRX) 5 MG TAB IR PO (16:05)
== END 2025-02-26 16:55 | disposition home or self-care (01) ==
PROVIDERS: PCP Family Medicine; Visit Provider Obstetrics & Gynecology
PROC: (CPT 49320; principal; 2025-02-26 13:00)
DX: N83.202 Unspecified ovarian cyst, left side (principal); N73.6 Female pelvic peritoneal adhesions (postinfective); G89.18 Other acute postprocedural pain; E66.01 Morbid (severe) obesity due to excess calories; Z68.42 Body mass index [BMI] 45.0-49.9, adult; Z79.51 Long term (current) use of inhaled steroids; Z80.3 Family history of malignant neoplasm of breast; Z82.49 Family history of ischemic heart disease and other diseases of the circulatory system
CPT/HCPCS: 58662; A9270; J1100; J2003; J2250; J2405; J2704; J3010; J7030; J7120; Q9968